=== PATIENT | female | born 1950 | race Caucasian/White ===

== ENCOUNTER 2018-07-05 04:40 | Emergency (ER) | payer MEDICARE, MEDICAID ==
[2018-07-05 04:47] VITALS: BP 156/88
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
[2018-07-05] MEDS ORDERED: Albuterol/Ipratropium 3.0-0.5 MG/3 ML Neb Soln NEB ONE (05:57)
[2018-07-05] MEDS ORDERED: Naproxen 500 MG Tab PO ONE (06:14)
== END 2018-07-05 09:35 | disposition home or self-care (01) ==
LOC: JD.ED 04:40
DX: J45.901 Unspecified asthma with (acute) exacerbation (principal); J70.5 Respiratory conditions due to smoke inhalation; Z88.1 Allergy status to other antibiotic agents; Z88.0 Allergy status to penicillin; Z88.8 Allergy status to other drugs, medicaments and biological substances; Z79.899 Other long term (current) drug therapy
CPT/HCPCS: 82375; 93005; 94640; 99285; A9270; 99283; J7620-GY

== ENCOUNTER 2018-10-16 06:09 | Day surgery (SDC) | payer MEDICARE, MEDICAID ==
[~2018-10-16 06:09] MED LIST: Lactated Ringers 1,000 ML IV SCH; Lidocaine 1%/Sod Bicarbonate in NS 8.4% 1 ML Syringe IDERM PRN; Sodium Chloride 0.9% 10 ML Syringe FLUSH PRN
[2018-10-16] MEDS ORDERED: Clindamycin Phosphate in D5W 900 MG in Premix Bag 1 BAG IV SCH ×2 (06:15)
[2018-10-16] MEDS ORDERED: Bupivacaine 0.25% 10 ML SDV ONE (06:35)
--- NOTE | 2018-10-16 06:45 | PCM.PREANE ---
Preanesthetic Assessment - Anesthesia/Transfusion/Family Hx Anesthesia History: Prior Anesthesia Without Reaction Family History of Anesthesia Reaction: Yes (sister reaction with second child C- section) Transfusion History: No Prior Transfusion(s) - Review of Systems General: No Symptoms Pulmonary: Other (bronciol asthma) Cardiovascular: Dyspnea on Exertion Gastrointestinal: No Symptoms Neurological: Other (memory side effects) Other: Reports: Diabetes (128 this am), Depression - Physical Assessment NPO Status Date: 10/15/18 NPO Status Time: 00:00 Pulse: 68 O2 Sat by Pulse Oximetry: 96 Respiratory Rate: 16 Blood Pressure: 150/86 Temperature: 36.2 C Height: 1.65 m Weight: 120.519 kg ASA Class: 3 Mental Status: Alert & Oriented x3 Airway Class: Mallampati = 2 Dentition: Reports: Caries Thyro-Mental Finger Breadths: 2 Mouth Opening Finger Breadths: 2 ROM/Head Extension: Limited/Partial Lungs: Clear to Auscultation, Normal Respiratory Effort, Decreased Breath Sounds Cardiovascular: Regular Rate, Regular Rhythm - Imaging/EKG Impressions: SR rate 74 - Allergies Allergies/Adverse Reactions: Allergies Allergy/AdvReac Type Severity Reaction Status Date / Time ampicillin sodium Allergy Rash Verified 10/15/18 14:45 [From Unasyn] Penicillins Allergy Rash Verified 10/15/18 14:45 sulbactam sodium Allergy Rash Verified 10/15/18 14:45 [From Unasyn] acetaminophen [From Tylenol] AdvReac Hallucinati Verified 10/15/18 14:45 ons diphenhydramine HCl AdvReac Itching Verified 10/15/18 14:45 [From Benadryl] - Anesthesia Plan Pre-Op Medication Ordered: Beta Edgar Beta Edgar: Metoprolol Med Last Dose Date: 10/16/18 Med Last Dose Time: 05:00 - Acknowledgements Anesthesia Type Planned: MAC Pt an Appropriate Candidate for the Planned Anesthesia: Yes Alternatives and Risks of Anesthesia Discussed w Pt/Guardian: Yes Pt/Guardian Understands and Agrees with Anesthesia Plan: Yes PreAnesthesia Questionnaire HEENT History: Reports: Cataract, Sinusitis Other HEENT History: Tonsillitis Cardiovascular History: Reports: High Cholesterol, Hypertension Respiratory History: Reports: Asthma, Bronchitis, Recurrent, Sleep Apnea Gastrointestinal History: Reports: Other (See Below) Other Gastrointestinal History: Gall bladder disease, elevated LFTs Genitourinary History: Reports: Other (See Below) Other Genitourinary History: Dysuria, urinary frequency, acute cystitis [employer]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: Musculoskeletal History: Reports: Gout, Osteoarthritis Other Musculoskeletal History: Bursitis, rotator cuff injury, right shoulder pain Neurological History: Reports: CVA (2008 and 2009), Other (See Below) Other Neuro History: Neuralgia Psychiatric History: Reports: Depression Endocrine/Metabolic History: Reports: Diabetes, Type II, Obesity/BMI 30+ Hematologic History: Reports: None Immunologic History: Reports: None Oncologic (Cancer) History: Reports: None Other Dermatologic History: Cellulitis and abscess of foot, skin lesions - Past Surgical History Head Surgeries/Procedures: Reports: None HEENT Surgical History: Reports: Cataract Surgery, Tonsillectomy Cardiovascular Surgical History: Reports: None Respiratory Surgical History: Reports: None GI Surgical History: Reports: Appendectomy, Cholecystectomy, Colonoscopy Female Surgical History: Reports: Section Endocrine Surgical History: Reports: None Neurological Surgical History: Reports: None Other Musculoskeletal Surgeries/Procedures:: Bilateral total knee arthroplasty, bilateral rotator cuff repair - SUBSTANCE USE Smoking Status *Q: Never Smoker Tobacco Use Within Last Twelve Months: No Second Hand Smoke Exposure: No Days Per Week of Alcohol Use: 0 Number of Drinks Per Day: 0 Total Drinks Per Week: 0 Recreational Drug Use History: No - HOME MEDS Home Medications: Home Meds Albuterol Sulfate [Proair Respiclick] 2 puff IH Q6H PRN 10/15/18 [History] Allopurinol [Zyloprim] 100 mg PO DAILY 10/15/18 [History] Calcium Carbonate [Calcium] 1,200 mg PO DAILY 10/15/18 [History] Clopidogrel [Plavix] 75 mg PO DAILY 10/15/18 [History] Fexofenadine [Alejandra] 180 mg PO DAILY 10/15/18 [History] Insulin Glargine,Hum.Rec.Anlog [Mili Lyons] 58 unit SQ BEDTIME 10/15/18 [ History] Magnesium 250 mg PO DAILY 10/15/18 [History] Metoprolol Succinate [Toprol XL 50mg] 50 mg PO DAILY 10/15/18 [History] Naproxen Sodium [Aleve] 220 mg PO BID PRN 10/15/18 [History] Quinapril [Accupril] 20 mg PO DAILY 10/15/18 [History] Rosuvastatin [Crestor] 5 mg PO DAILY 10/15/18 [History] Saxagliptin HCl [Onglyza] 5 mg PO DAILY 10/15/18 [History] Sertraline [Zoloft] 50 mg PO DAILY 10/15/18 [History] metFORMIN [Glucophage] 1,000 mg PO BIDMEALS 10/15/18 [History] traMADol [Ultram] 50 - 100 mg PO Q6H PRN #20 tab 10/16/18 [Rx] - CURRENT (IN HOUSE) MEDS Current Meds: Current Medications Lactated Ringer's (Ringers, Lactated) 1,000 mls @ 125 mls/hr IV ASDIRECTED NAZIA Stop: 10/16/18 23:00 Clindamycin Phosphate 900 mg/ (Premix) 50 mls @ 100 mls/hr IV ONETIME NAZIA Stop: 10/16/18 18:00 Lidocaine/Sodium Bicarbonate (Buffered Lidocaine 1% In Ns 8.4%) 0.25 ml IDERM ONETIME PRN PRN Reason: Prior to IV Start Stop: 10/16/18 18:00 Sodium Chloride (Saline Flush) 10 ml FLUSH ASDIRECTED PRN PRN Reason: Keep Vein Open Stop: 10/16/18 18:00 Discontinued Medications Bupivacaine HCl (Sensorcaine-Mpf 0.25%) Confirm Administered Dose 10 ml .ROUTE .STK-MED ONE Stop: 10/16/18 06:36
[2018-10-16] MEDS ORDERED: fentaNYL 100 MCG/2 ML SDV ONE (06:55)
[2018-10-16] MEDS ORDERED: Ondansetron 4 MG/2 ML SDV ONE (06:55)
[2018-10-16] MEDS ORDERED: Propofol 200 MG/20 ML SDV ONE (06:55)
[2018-10-16] MEDS ORDERED: Clindamycin Phosphate 900 MG/6 ML SDV ONE (06:56)
[2018-10-16] MEDS ORDERED: Lidocaine 1% 4 ML ONE (06:56)
[2018-10-16] MEDS ORDERED: Midazolam 1 MG/ML 2 ML SDV ONE (06:56)
[2018-10-16] MEDS ORDERED: Lidocaine 1% 30 ML SDV ONE (06:57)
[2018-10-16 09:54] VITALS: BP 127/66
--- NOTE | 2018-10-17 10:46 | PCM.OPNOTE ---
- General Post-Op/Procedure Note Date of Surgery/Procedure: 10/16/18 Operative Procedure(s): left ring finger trigger finger release Pre Op Diagnosis: left ring finger stenosing tenosynovitis Post-Op Diagnosis: Same Anesthesia Technique: Local, MAC Primary Surgeon: Ck Yo Anesthesia Provider: Carmine Martinez [employer] Work Supervisor: Samantha Daniel EBL in mLs: 5 Complications: None Condition: Good
--- NOTE | 2018-10-17 11:11 | OR ---
DATE OF OPERATION: 10/16/2018 SURGEON: Ck Yo MD OPERATION PERFORMED: Left ring finger trigger finger release. PREOPERATIVE DIAGNOSIS: Left ring finger stenosing tenosynovitis. POSTOPERATIVE DIAGNOSIS: Left ring finger stenosing tenosynovitis. ANESTHESIA: Local MAC. 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 ESTIMATED BLOOD LOSS: Less than 5 mL. COMPLICATIONS: None. CONDITION: Stable. DESCRIPTION OF PROCEDURE: The patient was identified in the preoperative holding area. Proper site was marked and identified by the surgeon. The patient was taken back to the operating theater where after adequate anesthesia, the patient's left upper extremity was sterilely prepped and draped in the usual sterile fashion. OR time-out was performed. She received IV clindamycin. At this time, the left upper extremity was anesthetized at the incisional site using 1% lidocaine without epinephrine and 0.25% Marcaine without epinephrine. Once this had set up, a transverse incision was made over the A1 maura of the left ring finger. Blunt dissection was taken down to the A1 maura. Ragnell retractors were used to protect the neurovascular bundles. A Bennett blade was then used to resect the A1 maura both proximally and distally. It was found to have adequate release both proximally and distally. There were no tenderness or adhesions noted. Adequate saline was irrigated through the wound. A 4-0 nylon simple suture was used for closure of the skin. The patient had a sterile soft dressing applied and sent to PACU in stable condition. LAMAR /[id number]
== END 2018-10-16 09:52 | disposition home or self-care (01) ==
LOC: JD.SDS 06:09
PROVIDERS: ATTEND Orthopaedic Surgery
DX: M65.842 Other synovitis and tenosynovitis, left hand (principal); I10 Essential (primary) hypertension; E11.9 Type 2 diabetes mellitus without complications; F32.9 Major depressive disorder, single episode, unspecified; M10.9 Gout, unspecified; E66.3 Overweight; Z68.41 Body mass index [BMI] 40.0-44.9, adult; Z79.02 Long term (current) use of antithrombotics/antiplatelets; Z79.4 Long term (current) use of insulin; Z79.51 Long term (current) use of inhaled steroids; Z88.6 Allergy status to analgesic agent; Z88.1 Allergy status to other antibiotic agents; Z88.0 Allergy status to penicillin; Z88.8 Allergy status to other drugs, medicaments and biological substances
CPT/HCPCS: 01810; J2001; J2250; J2405; J2704; J3010; J3490; J7120

== ENCOUNTER 2019-03-19 07:30 | Inpatient (IN) | payer MEDICARE, MEDICAID ==
[2019-03-30] MEDS ORDERED: Lidocaine 1%/Sod Bicarbonate in NS 8.4% 1 ML Syringe IDERM PRN (00:01)
[2019-03-30] MEDS ORDERED: Lactated Ringers 1,000 ML IV SCH (00:01)
[2019-03-30] MEDS ORDERED: Albuterol 0.083% 2.5 MG/3 ML Neb Soln NEB ONE (00:01)
[2019-03-30] MEDS ORDERED: Sodium Chloride 0.9% 10 ML Syringe FLUSH PRN (00:01)
[2019-04-01] MEDS ORDERED: EPINEPHrine 1 MG/ML SDV ONE (06:15)
[2019-04-01] MEDS ORDERED: Lidocaine 1% 2 ML ONE (06:15)
[2019-04-01] MEDS ORDERED: Ropivacaine 0.5% 5 MG/ML 30 ML SDV ONE (06:15)
[2019-04-01] MEDS ORDERED: Ondansetron 4 MG/2 ML SDV ONE (06:27)
[2019-04-01] MEDS ORDERED: Propofol 200 MG/20 ML SDV ONE ×2 (06:27→07:55)
[2019-04-01] MEDS ORDERED: Lidocaine 1% 6 ML ONE (06:27)
[2019-04-01] MEDS ORDERED: Rocuronium 50 MG/5 ML Vial ONE (06:27)
[2019-04-01] MEDS ORDERED: Lactated Ringers 1,000 ML ONE ×2 (06:27→08:20)
[2019-04-01] MEDS ORDERED: Ketorolac 30 MG/ML SDV ONE (06:27)
[2019-04-01] MEDS ORDERED: Midazolam 1 MG/ML 2 ML SDV ONE (06:28)
[2019-04-01] MEDS ORDERED: fentaNYL 250 MCG/5 ML SDV ONE (06:28)
[2019-04-01] MEDS ORDERED: Albuterol 0.083% 2.5 MG/3 ML Neb Soln NEB ONE (06:51)
--- NOTE | 2019-04-01 06:52 | PCM.PREANE ---
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), September 2009 CVA), Tingling (Right hand due to shoulder pain), Other (Memory issues:) Other: Reports: Easy Bleeding, Easy Bruising, Diabetes ([phone] [id number]), Sinus Problem (seasonal allergies), Depression - Physical Assessment NPO Status Date: 03/31/19 NPO Status Time: 19:30 Vital Signs: Last Vital Signs Temp 36.1 C 04/01/19 06:10 Pulse 66 04/01/19 06:10 Resp 16 04/01/19 06:10 BP 117/68 04/01/19 06:10 Pulse Ox 96 04/01/19 06:10 Height: 1.68 m Weight: 114 kg ASA Class: 3 Mental Status: Alert & Oriented x3 Airway Class: Mallampati = 2 Dentition: Reports: Normal Dentition, Caries Thyro-Mental Finger Breadths: 3 Mouth Opening Finger Breadths: 3 ROM/Head Extension: Full Lungs: Clear to Auscultation, Normal Respiratory Effort, Decreased Breath Sounds (Albuterol nebulizer given in preoperative area.) Cardiovascular: Regular Rate, Regular Rhythm, No Murmurs - Lab Values: Laboratory Last Values POC Glucose 142 mg/dL (80-115) H 04/01/19 06:20 MRSA (PCR) Negative 03/06/19 09:55 All labs reviewed and noted and within acceptable ranges to proceed with scheduled procedure. - Imaging/EKG Impressions: CXR: Mild cardiomegaly that is unchanged since 09/06/2014 EKG: SR rate=66, inferior old infarct, no changes from prior EKG. - Allergies Allergies/Adverse Reactions: Allergies Allergy/AdvReac Type Severity Reaction Status Date / Time ampicillin sodium Allergy Rash Verified 03/31/19 10:39 [From Unasyn] Penicillins Allergy Rash Verified 03/31/19 10:39 sulbactam sodium Allergy Rash Verified 03/31/19 10:39 [From Unasyn] acetaminophen [From Tylenol] AdvReac Hallucinati Verified 03/31/19 10:39 ons diphenhydramine HCl AdvReac Itching Verified 03/31/19 10:39 [From Benadryl] - Anesthesia Plan Pre-Op Medication Ordered: Beta Edgar Beta Edgar: Metoprolol Med Last Dose Date: 04/01/19 Med Last Dose Time: 04:45 - Acknowledgements Anesthesia Type Planned: General Anesthesia (Right ISB under US guidance for post operative pain control requested by Dr. Yo.) Pt an Appropriate Candidate for the Planned Anesthesia: Yes Alternatives and Risks of Anesthesia Discussed w Pt/Guardian: Yes Pt/Guardian Understands and Agrees with Anesthesia Plan: Yes PreAnesthesia Questionnaire HEENT History: Reports: Allergic Rhinitis, Impaired Vision, Sinusitis Other HEENT History: Tonsillitis Cardiovascular History: Reports: High Cholesterol, Hypertension Respiratory History: Reports: Asthma, Bronchitis, Recurrent, Sleep Apnea Gastrointestinal History: Reports: Other (See Below) Other Gastrointestinal History: Gall bladder disease, elevated LFTs Genitourinary History: Reports: Urinary Incontinence Other Genitourinary History: Dysuria, urinary frequency, acute cystitis 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: Musculoskeletal History: Reports: Gout, Osteoarthritis Other Musculoskeletal History: Bursitis, rotator cuff injury, right shoulder pain Neurological History: Reports: CVA, TIA Other Neuro History: Neuralgia, cerebrovascular disease Psychiatric History: Reports: Depression Endocrine/Metabolic History: Reports: Diabetes, Type II, Obesity/BMI 30+ Hematologic History: Reports: None Immunologic History: Reports: None Oncologic (Cancer) History: Reports: None Dermatologic History: Reports: Cellulitis Other Dermatologic History: Cellulitis and abscess of foot, skin lesions - Infectious Disease History Infectious Disease History: Reports: None - Past Surgical History Head Surgeries/Procedures: Reports: None HEENT Surgical History: Reports: Adenoidectomy, Cataract Surgery, Tonsillectomy Cardiovascular Surgical History: Reports: None Respiratory Surgical History: Reports: None GI Surgical History: Reports: Appendectomy, Cholecystectomy, Colonoscopy Female Surgical History: Reports: Section, Tubal Ligation Endocrine Surgical History: Reports: None Neurological Surgical History: Reports: None Musculoskeletal Surgical History: Reports: Carpal Tunnel, Knee Replacement, Shoulder Surgery Other Musculoskeletal Surgeries/Procedures:: Bilateral total knee arthroplasty, bilateral rotator cuff repair Oncologic Surgical History: Reports: None - SUBSTANCE USE Smoking Status *Q: Never Smoker Second Hand Smoke Exposure: No Recreational Drug Use History: No - HOME MEDS Home Medications: Home Meds Albuterol Sulfate [Proair Respiclick] 2 puff IH Q6H PRN 10/15/18 [History] Allopurinol [Zyloprim] 100 mg PO DAILY 10/15/18 [History] Calcium Carbonate [Calcium] 1,200 mg PO DAILY 10/15/18 [History] Clopidogrel [Plavix] 75 mg PO DAILY 10/15/18 [History] Fexofenadine [Alejandra] 180 mg PO DAILY 10/15/18 [History] Insulin Glargine,Hum.Rec.Anlog [T[place]hayy Solostar] 58 unit SQ BEDTIME 10/15/18 [ History] Metoprolol Succinate [Toprol XL 50mg] 50 mg PO DAILY 10/15/18 [History] Naproxen Sodium [Aleve] 220 mg PO BID PRN 10/15/18 [History] Quinapril [Accupril] 20 mg PO DAILY 10/15/18 [History] Rosuvastatin [Crestor] 5 mg PO DAILY 10/15/18 [History] Saxagliptin HCl [Onglyza] 5 mg PO DAILY 10/15/18 [History] Sertraline [Zoloft] 50 mg PO DAILY 10/15/18 [History] metFORMIN [Glucophage] 1,000 mg PO BIDMEALS 10/15/18 [History] Magnesium Oxide [Magnesium] 400 mg PO DAILY 12/31/18 [History] Cholecalciferol (Vitamin D3) [Vitamin D3] 5,000 unit PO DAILY 03/27/19 [History] - CURRENT (IN HOUSE) MEDS Current Meds: Current Medications Aspirin (Ecotrin) 325 mg PO DAILY NAZIA Bisacodyl (Dulcolax) 5 mg PO DAILY PRN PRN Reason: Constipation Cyclobenzaprine HCl (Flexeril) 5 mg PO BID PRN PRN Reason: Spasms Docusate Sodium (Colace) 100 mg PO BID NAZIA Famotidine (Pepcid) 20 mg PO Q12H NAZIA Cefazolin Sodium/Dextrose 2 gm (/ Premix) 50 mls @ 100 mls/hr IV Q8H NAZIA Stop: 04/01/19 23:14 Ketorolac Tromethamine (Toradol) 15 mg IVPUSH Q6H PRN PRN Reason: Pain Morphine Sulfate (Morphine) 2 mg IVPUSH Q2H PRN PRN Reason: Breakthrough Pain Naloxone HCl (Narcan) 0.1 mg IVPUSH Q5M PRN PRN Reason: Oversedation Ondansetron HCl (Zofran) 4 mg IVPUSH Q6H PRN PRN Reason: Nausea/Vomiting Oxycodone HCl (Oxycodone) 5 - 10 mg PO Q6H PRN PRN Reason: Pain Senna (Senna) 8.6 mg PO BID PRN PRN Reason: Constipation Discontinued Medications Albuterol (Proventil Neb Soln) 2.5 mg NEB ONETIME ONE Stop: 03/30/19 00:02 Cefazolin Sodium (Ancef) Confirm Administered Dose 2 gm .ROUTE .STK-MED ONE Stop: 04/01/19 06:28 Epinephrine HCl (Adrenalin) Confirm Administered Dose 1 mg .ROUTE .STK-MED ONE Stop: 04/01/19 06:16 Fentanyl (Sublimaze) Confirm Administered Dose 250 mcg .ROUTE .STK-MED ONE Stop: 04/01/19 06:29 Lactated Ringer's (Ringers, Lactated) 1,000 mls @ 125 mls/hr IV ASDIRECTED NAZIA Stop: 03/30/19 23:00 Lidocaine HCl (Xylocaine-Mpf 1%) Confirm Administered Dose 2 mls @ as directed .ROUTE .STK-MED ONE Stop: 04/01/19 06:16 Lidocaine HCl (Xylocaine-Mpf 1%) Confirm Administered Dose 6 mls @ as directed .ROUTE .STK-MED ONE Stop: 04/01/19 06:28 Lactated Ringer's (Ringers, Lactated) Confirm Administered Dose 1,000 mls @ as directed .ROUTE .STK-MED ONE Stop: 04/01/19 06:28 Ketorolac Tromethamine (Toradol) Confirm Administered Dose 30 mg .ROUTE .STK- MED ONE Stop: 04/01/19 06:28 Lidocaine/Sodium Bicarbonate (Buffered Lidocaine 1% In Ns 8.4%) 0.25 ml IDERM ONETIME PRN PRN Reason: Prior to IV Start Stop: 03/30/19 23:00 Midazolam HCl (Versed 1 Mg/Ml) Confirm Administered Dose 2 mg .ROUTE .STK-MED ONE Stop: 04/01/19 06:29 Ondansetron HCl (Zofran) Confirm Administered Dose 4 mg .ROUTE .STK-MED ONE Stop: 04/01/19 06:28 Propofol (Diprivan 20 Ml) Confirm Administered Dose 200 mg .ROUTE .STK-MED ONE Stop: 04/01/19 06:28 Rocuronium [place] (Zemuron) Confirm Administered Dose 50 mg .ROUTE .STK-MED ONE Stop: 04/01/19 06:28 Ropivacaine (Naropin 0.5%) Confirm Administered Dose 30 ml .ROUTE .STK-MED ONE Stop: 04/01/19 06:16 Sodium Chloride (Saline Flush) 10 ml FLUSH ASDIRECTED PRN PRN Reason: Keep Vein Open Stop: 03/30/19 23:00
[2019-04-01] MEDS ORDERED: Lactated Ringers 1,000 ML IV SCH (07:00)
[2019-04-01] MEDS ORDERED: ceFAZolin 1 GM Vial ONE (07:01)
[2019-04-01] MEDS ORDERED: Bupivacaine 0.25% 10 ML SDV ONE (07:02)
--- NOTE | 2019-04-01 07:07 | PCM.CONS ---
H&P History of Present Illness - General Date of Service: 04/01/19 Admit Problem/Dx: Admission Diagnosis/Problem Admission Diagnosis/Problem Osteoarthritis of shoulder Source of Information: Patient, Old Records, Provider, RN, RN Notes Reviewed History Limitations: Reports: No Limitations - History of Present Illness Initial Comments - Free Text/Narative: Melanie Lowe is a 68 yo female patient of Dr. Yo who is post-operative day 0 of right RTSA. Hospital medicine was consulted for post-operative medical care of the following listed medical conditions. At this time she is resting comfortably in bed. Pain is controlled. She denies any chest pain, shortness of breath, palpitations, nausea, or vomiting. She carries a history of: Type II DM , HTN, CVA, Depression, Gout, HLD, Obesity, elevated LFTs, Neuralgia, BLAISE, Cardiomegaly, LVH, asthma, Recurrent bronchitis, urinary incontinence, TIAs. She was never a smoker. She is a full code. Her primary care provider is Dr. Parrish. Right Shoulder Pain Score (Numeric/FACES): 10 - Related Data Allergies/Adverse Reactions: Allergies Allergy/AdvReac Type Severity Reaction Status Date / Time ampicillin sodium Allergy Rash Verified 04/01/19 11:51 [From Unasyn] diphenhydramine HCl Allergy Itching Verified 04/01/19 11:51 [From Benadryl] Penicillins Allergy Rash Verified 04/01/19 11:51 sulbactam sodium Allergy Rash Verified 04/01/19 11:51 [From Unasyn] acetaminophen [From Tylenol] AdvReac Hallucinati Verified 04/01/19 11:51 ons Home Medications: Home Meds Albuterol Sulfate [Proair Respiclick] 2 puff IH Q6H PRN 10/15/18 [History] Allopurinol [Zyloprim] 100 mg PO DAILY 10/15/18 [History] Calcium Carbonate [Calcium] 1,200 mg PO DAILY 10/15/18 [History] Clopidogrel [Plavix] 75 mg PO DAILY 10/15/18 [History] Fexofenadine [Alejandra] 180 mg PO DAILY 10/15/18 [History] Insulin Glargine,Hum.Rec.Anlog [Mili Lyons] 58 unit SQ BEDTIME 10/15/18 [ History] Metoprolol Succinate [Toprol XL 50mg] 50 mg PO DAILY 10/15/18 [History] Naproxen Sodium [Aleve] 220 mg PO BID PRN 10/15/18 [History] Quinapril [Accupril] 20 mg PO DAILY 10/15/18 [History] Rosuvastatin [Crestor] 5 mg PO DAILY 10/15/18 [History] Saxagliptin HCl [Onglyza] 5 mg PO DAILY 10/15/18 [History] Sertraline [Zoloft] 50 mg PO DAILY 10/15/18 [History] metFORMIN [Glucophage] 1,000 mg PO BIDMEALS 10/15/18 [History] Magnesium Oxide [Magnesium] 400 mg PO DAILY 12/31/18 [History] Cholecalciferol (Vitamin D3) [Vitamin D3] 5,000 unit PO DAILY 03/27/19 [History] Past Medical History HEENT History: Reports: Allergic Rhinitis, Impaired Vision, Sinusitis Other HEENT History: Tonsillitis Cardiovascular History: Reports: High Cholesterol, Hypertension Respiratory History: Reports: Asthma, Bronchitis, Recurrent, Sleep Apnea Gastrointestinal History: Reports: Other (See Below) Other Gastrointestinal History: Gall bladder disease, elevated LFTs Genitourinary History: Reports: Urinary Incontinence Other Genitourinary History: Dysuria, urinary frequency, acute cystitis 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: Musculoskeletal History: Reports: Gout, Osteoarthritis Other Musculoskeletal History: Bursitis, rotator cuff injury, right shoulder pain Neurological History: Reports: CVA, TIA Other Neuro History: Neuralgia, cerebrovascular disease Psychiatric History: Reports: Depression Endocrine/Metabolic History: Reports: Diabetes, Type II, Obesity/BMI 30+ Hematologic History: Reports: None Immunologic History: Reports: None Oncologic (Cancer) History: Reports: None Dermatologic History: Reports: Cellulitis Other Dermatologic History: Cellulitis and abscess of foot, skin lesions - Infectious Disease History Infectious Disease History: Reports: None - Past Surgical History Head Surgeries/Procedures: Reports: None HEENT Surgical History: Reports: Adenoidectomy, Cataract Surgery, Tonsillectomy Cardiovascular Surgical History: Reports: None Respiratory Surgical History: Reports: None GI Surgical History: Reports: Appendectomy, Cholecystectomy, Colonoscopy Female Surgical History: Reports: Section, Tubal Ligation Endocrine Surgical History: Reports: None Neurological Surgical History: Reports: None Musculoskeletal Surgical History: Reports: Carpal Tunnel, Knee Replacement, Shoulder Surgery Other Musculoskeletal Surgeries/Procedures:: Bilateral total knee arthroplasty, bilateral rotator cuff repair Oncologic Surgical History: Reports: None Social & Family History - Tobacco Use Smoking Status *Q: Never Smoker Second Hand Smoke Exposure: No - Caffeine Use Caffeine Use: Reports: Coffee, Tea - Recreational Drug Use Recreational Drug Use: No - Living Situation & Occupation Living situation: Reports: , with Family (Daughter + her family) Occupation: Retired H&P Review of Systems - Review of Systems: Review Of Systems: See Below General: Reports: No Symptoms. Denies: Fever, Chills HEENT: Reports: Post Nasal Drip, Sore Throat. Denies: Headaches Pulmonary: Reports: Shortness of Breath (occasional), Cough. Denies: Wheezing, Pleuritic Chest Pain, Sputum Cardiovascular: Reports: No Symptoms. Denies: Chest Pain, Dyspnea on Exertion, Edema Gastrointestinal: Reports: No Symptoms. Denies: Abdominal Pain, Constipation, Diarrhea, Nausea, Vomiting Genitourinary: Reports: No Symptoms. Denies: Pain Musculoskeletal: Reports: Shoulder Pain Skin: Reports: No Symptoms. Denies: Cyanosis Psychiatric: Reports: No Symptoms. Denies: Confusion Neurological: Reports: No Symptoms Hematologic/Lymphatic: Reports: No Symptoms Immunologic: Reports: No Symptoms Exam - Exam Exam: See Below - Vital Signs Vital Signs: Last Vital Signs Temp 97.0 F 04/01/19 06:10 Pulse 66 04/01/19 06:10 Resp 16 04/01/19 06:10 BP 117/68 04/01/19 06:10 Pulse Ox 98 04/01/19 06:56 Weight: 251 lb 5.231 oz - Exam Quality Assessment: DVT Prophylaxis General: Alert, Oriented, Cooperative. No: Mild Distress HEENT: Conjunctiva Clear, EACs Clear, EOMI, Hearing Intact, Mucosa Moist & Hobe Sound , Nares Patent, Posterior Pharynx Clear, PERRLA Neck: Supple, Trachea Midline Lungs: Clear to Auscultation, Normal Respiratory Effort, Decreased Breath Sounds. No: Rhonchi, Wheezing Cardiovascular: Regular Rate, Regular Rhythm GI/Abdominal Exam: Normal Bowel Sounds, Soft, Non-Tender, No Distention, No Abnormal Bruit (Female) Exam: Deferred Rectal (Female) Exam: Deferred Back Exam: Normal Inspection, Full Range of Motion Extremities: No Pedal Edema, Normal Capillary Refill, Arm Pain (Right shoulder) , Limited Range of Motion, Other (Sling and swathe on right arm. Bandage on right shoulder. Bandage is dry and intact. Cooling pack in palce.) Peripheral Pulses: 1+: Dorsalis Pedis (L), Dorsalis Pedis (R), 2+: Radial (L), Radial (R) Skin: Warm, Dry, Intact Neurological: Cranial Nerves Intact (Grossly ) Neuro Extensive - Mental Status: Alert, Oriented x3, Normal Mood/Affect - Patient Data Lab Results Last 24 hrs: Laboratory Results - last 24 hr 04/01/19 Range/Units 06:20 POC Glucose 142 H (80-115) mg/dL Consult PN Assessment/Plan POD#: 0 Procedures: Procedures AIRWAY INHALATION TREATMENT (07/05/18) ASSAY CARBOXYHB QUANT (07/05/18) ASSAY OF BLOOD/URIC ACID (01/27/14) CHEST X-RAY 2VW FRONTAL&LATL (11/09/15) COMP SCREEN MAMMOGRAM ADD-ON (09/30/15) COMPLETE CBC W/AUTO DIFF WBC (01/07/14) CULTURE AEROBIC IDENTIFY (11/05/13) DXA BONE DENSITY AXIAL (09/30/15) ELECTROCARDIOGRAM TRACING (07/05/18) EMERGENCY DEPT VISIT (12/31/18) EMERGENCY DEPT VISIT (07/05/18) EMERGENCY DEPT VISIT (01/27/14) HYDRATE IV INFUSION ADD-ON (04/23/14) HYDRATION IV INFUSION INIT (04/23/14) INCISE FINGER TENDON SHEATH (10/16/18) INJECTION FOR SHOULDER X-RAY (10/26/15) INSERT BLADDER CATHETER (12/31/18) MANUAL THERAPY 1/> REGIONS (03/06/16) MASSAGE THERAPY (10/03/17) MICROBE SUSCEPTIBLE KATY (12/31/18) MR-STAPH DNA AMP PROBE (10/03/18) MRI JOINT UPR EXTREM W/DYE (10/26/15) NEEDLE LOCALIZATION BY XRAY (10/26/15) NEUROMUSCULAR REEDUCATION (10/18/17) PT EVAL MOD COMPLEX 30 MIN (10/03/17) PT EVALUATION (02/06/16) ROUTINE VENIPUNCTURE (01/27/14) THER/PROPH/DIAG INJ SC/IM (01/27/14) THERAPEUTIC EXERCISES (10/18/17) URINALYSIS AUTO W/SCOPE (12/31/18) URINE BACTERIA CULTURE (12/31/18) URINE CULTURE/COLONY COUNT (12/31/18) X-RAY EXAM OF HAND (09/15/13) X-RAY EXAM OF TOE(S) (01/07/14) (1) S/p reverse total shoulder arthroplasty SNOMED Code(s): 051678233, 005514521 Code(s): Z96.619 - PRESENCE OF UNSPECIFIED ARTIFICIAL SHOULDER JOINT Priority: High Current Visit: Yes Qualifiers: Laterality: right Qualified Code(s): Z96.611 - Presence of right artificial shoulder joint (2) Osteoarthritis SNOMED Code(s): 108931214 Code(s): M19.90 - UNSPECIFIED OSTEOARTHRITIS, UNSPECIFIED SITE Priority: High Current Visit: Yes Qualifiers: Osteoarthritis location: shoulder Osteoarthritis type: primary Laterality : right Qualified Code(s): M19.011 - Primary osteoarthritis, right shoulder (3) Diabetes mellitus SNOMED Code(s): 23222242 Code(s): E11.9 - TYPE 2 DIABETES MELLITUS WITHOUT COMPLICATIONS Priority: Medium Current Visit: No Qualifiers: Diabetes mellitus type: type 2 Diabetes mellitus assisted insulin use: unspecified assisted insulin use status Diabetes mellitus complication status : with other specified complication Qualified Code(s): E11.69 - Type 2 diabetes mellitus with other specified complication (4) HTN (hypertension) SNOMED Code(s): 23685103 Code(s): I10 - ESSENTIAL (PRIMARY) HYPERTENSION Priority: Medium Current Visit: No Qualifiers: Hypertension type: unspecified Qualified Code(s): I10 - Essential (primary ) hypertension (5) CVA (cerebral vascular accident) SNOMED Code(s): 687319512 Code(s): I63.9 - CEREBRAL INFARCTION, UNSPECIFIED Priority: Medium Current Visit: No Qualifiers: CVA mechanism: unspecified Qualified Code(s): I63.9 - Cerebral infarction, unspecified (6) Depression SNOMED Code(s): 17707981 Code(s): F32.9 - MAJOR DEPRESSIVE DISORDER, SINGLE EPISODE, UNSPECIFIED Priority: Low Current Visit: No Qualifiers: Depression Type: other depression Qualified Code(s): F32.89 - Other specified depressive episodes (7) HLD (hyperlipidemia) SNOMED Code(s): 75009090 Code(s): E78.5 - HYPERLIPIDEMIA, UNSPECIFIED Priority: Low Current Visit : No Qualifiers: Hyperlipidemia type: unspecified Qualified Code(s): E78.5 - Hyperlipidemia , unspecified (8) Obesity SNOMED Code(s): 420935517, 967409462 Code(s): E66.9 - OBESITY, UNSPECIFIED Priority: Medium Current Visit: No Qualifiers: Obesity type: unspecified obesity type Obesity classification: adult class 3 (BMI >= 40) Serious obesity comorbidity presence: unspecified whether serious comorbidity present Body mass index: BMI 40.0-44.9 Qualified Code(s) : E66.01 - Morbid (severe) obesity due to excess calories; Z68.41 - Body mass index (BMI) 40.0-44.9, adult (9) Elevated LFTs SNOMED Code(s): 432174678, 534731458 Code(s): R94.5 - ABNORMAL RESULTS OF LIVER FUNCTION STUDIES Priority: Low Current Visit: No (10) Neuralgia SNOMED Code(s): 97441831 Code(s): M79.2 - NEURALGIA AND NEURITIS, UNSPECIFIED Priority: Low Current Visit: No (11) BLAISE (obstructive sleep apnea) SNOMED Code(s): 51583011 Code(s): G47.33 - OBSTRUCTIVE SLEEP APNEA (ADULT) (PEDIATRIC) Priority: Medium Current Visit: No (12) Cardiomegaly SNOMED Code(s): 2893040 Code(s): I51.7 - CARDIOMEGALY Priority: Medium Current Visit: No (13) LVH (left ventricular hypertrophy) SNOMED Code(s): 22428286 Code(s): I51.7 - CARDIOMEGALY Priority: Low Current Visit: No (14) Gout SNOMED Code(s): 00820754 Code(s): M10.9 - GOUT, UNSPECIFIED Priority: Low Current Visit: No (15) Asthma SNOMED Code(s): 529614806 Code(s): J45.909 - UNSPECIFIED ASTHMA, UNCOMPLICATED Priority: Medium Current Visit: No Qualifiers: Asthma severity: unspecified severity Asthma persistence: unspecified Asthma complication type: unspecified Qualified Code(s): J45.909 - Unspecified asthma, uncomplicated (16) Incontinence SNOMED Code(s): 76973489 Code(s): R32 - UNSPECIFIED URINARY INCONTINENCE Priority: Low Current Visit: No Qualifiers: Incontinence type: urinary Urinary Incontinence type: unspecified incontinence Qualified Code(s): R32 - Unspecified urinary incontinence (17) History of TIAs SNOMED Code(s): 047347476 Code(s): Z86.73 - PRSNL HX OF TIA (TIA), AND CEREB INFRC W/O RESID DEFICITS Priority: Medium Current Visit: No Problem List Initiated/Reviewed/Updated: Yes Plan: I/P: Acute: S/P right reverse total shoulder arthroplasty - post-operative day 0 -DVT prophylaxis and pain management per primary care team -PT/OT -IS/RT -Monitor oxygen saturation -PRN Duonebs -Titrate oxygen as needed -Home medications reviewed -Vital signs stable -Monitor labs -Pre-operative Hgb was 14.4 -Pre-operative GFR was 52 -Pre-operative AST was 43 Osteoarthritis of right shoulder -Pain management per primary care team Seasonal Allergies/Sore throat -Cough and post-nasal drip -Cepacol lozenges -Likely worsened by anesthesia/ET tube. Chronic: Type II DM HTN CVA Depression Gout HLD Obesity elevated LFTs Neuralgia BLAISE Cardiomegaly LVH asthma Recurrent bronchitis urinary incontinence TIAs Plan: CM for discharge planning GI prophylaxis Home medications as indicated Other orders as listed above Routine AM labs She is a full code. Her PCP is Dr. Parrish Thank you for allowing us to participate in the care of this patient!! Requesting Provider: Dr. Yo Date Consult Requested: 04/01/19 Patient History Reviewed: Yes Admission H&P Reviewed: Yes Time Spent (in minutes): 35
--- NOTE | 2019-04-01 07:43 | PCM.SN ---
- Free Text/Narrative Note: Anesthesia Note: (Right Interscalene Block Note) Date: 04/01/2019 Time Out: 717 Start: 719 Stop: 732 Surgical Procedure: Right Reverse Shoulder Replacement Diagnosis Right Primary shoulder OA Current Procedure: Right interscalene block under US guidance for postoperative pain control requested by Dr. Yo. Patient chart reviewed, risk/benefits discussed with patient, consent obtained. Patient positioned supine, monitors/alarms on, oxygen placed via nasal cannula at 2 LPM. IV sedation administered: Versed 2mg IV, Fentanyl 50mcg IV given in prior to block placement. Right shoulder prepped with two chloropreps. Sterile drapes placed with aseptic technique noted. Under US guidance, right subclavian artery visualized along with the right brachial plexus. Plexus followed up to C6 cricoid level, and area localized with 2mls of 1% lidocaine. 22gauge 2 inch stimiplex needle advanced under US with 0.6mV with stimulation of biceps noted. Good stimulation noted with decreased voltage and absent at 0.2mVs. 1ml of Normal Saline injected with loss of stimulation noted to confirm needle not placed intraneurally. Incremental dosing of 5mls with negative aspiration noted prior to each injection of 0.5% ropivacaine with 1:200,000 epinephrine. Total volume=30mls. Please refer to nurses noted for vital signs. Carmela Orozco CRNA
[2019-04-01] MEDS ORDERED: Phenylephrine/Normal Saline 100 MCG/ML 10 ML Syringe ONE (08:19)
[2019-04-01] MEDS ORDERED: Albuterol 0.083% 2.5 MG/3 ML Neb Soln NEB PRN (08:39)
[2019-04-01] MEDS ORDERED: fentaNYL 100 MCG/2 ML SDV IVPUSH PRN (08:39)
[2019-04-01] MEDS ORDERED: Ondansetron 4 MG/2 ML SDV IVPUSH PRN ×2 (08:39→10:00)
[2019-04-01] MEDS ORDERED: Haloperidol Lactate 5 MG/ML SDV IVPUSH PRN (08:39)
[2019-04-01] MEDS ORDERED: HYDROmorphone 0.5 MG/0.5 ML Syringe IVPUSH PRN (08:39)
[2019-04-01] MEDS ORDERED: Phenylephrine 1 MG in Sodium Chloride 0.9% 10 ML IV SCH (08:45)
[2019-04-01] MEDS ORDERED: Glycopyrrolate 0.2 MG/ML SDV ONE (08:50)
[2019-04-01] MEDS ORDERED: Neostigmine Methylsulfate 1 MG/ML 5 ML Syringe ONE (08:51)
[2019-04-01] MEDS: ceFAZolin 1 GM Vial ONE ×2 (09:04→09:29)
[2019-04-01] MEDS: Iodine/Sodium Iodide 2% Tincture 30 ML Bottle ONE ×2 (09:05→09:26)
[2019-04-01] MEDS: Vancomycin 1 GM SDV ONE ×3 (09:06→09:35)
[2019-04-01] MEDS ORDERED: Albuterol 6.7 GM Inhaler INH PRN (09:53)
[2019-04-01] MEDS ORDERED: Naloxone 0.4 MG/ML SDV IVPUSH PRN (10:00)
[2019-04-01] MEDS ORDERED: Morphine 2 MG/ML Syringe IVPUSH PRN (10:00)
[2019-04-01] MEDS ORDERED: Ketorolac 15 MG/ML SDV IVPUSH PRN (10:00)
[2019-04-01] MEDS ORDERED: Sennosides 8.6 MG Tab PO PRN (10:00)
[2019-04-01] MEDS ORDERED: Bisacodyl 5 MG Tab PO PRN (10:00)
--- NOTE | 2019-04-01 10:22 | PCM.POSTAN ---
POST ANESTHESIA ASSESSMENT - MENTAL STATUS Mental Status: Alert - VITAL SIGNS Vital Signs: Last Vital Signs Temp 36.1 C 04/01/19 1004 Pulse 81 04/01/19 1004 Resp 12 04/01/19 1004 BP 158/85 H 04/01/19 1004 Pulse Ox 95 04/01/19 1004 - RESPIRATORY Respiratory Status: Respiratory Rate WNL, Airway Patent, O2 Saturation Stable, Supplemental Oxygen - CARDIOVASCULAR CV Status: Pulse Rate WNL, Blood Pressure Stable - GASTROINTESTINAL GI Status: No Symptoms - POST OP HYDRATION Hydration Status: Adequate & Stable
[2019-04-01] MEDS ORDERED: Midazolam 1 MG/ML 2 ML SDV IVPUSH ONE (10:24)
[2019-04-01] MEDS ORDERED: Benzocaine/Cetylpyridinium/Menthol Lozenge MUCMEM PRN (14:32)
[2019-04-01] MEDS ORDERED: Albuterol/Ipratropium 3.0-0.5 MG/3 ML Neb Soln NEB PRN (15:00)
[2019-04-01] MEDS: oxyCODONE 5 MG Tab PO PRN ×2 (15:15→21:23)
[2019-04-01] MEDS: ceFAZolin 2 GM in Premix Bag 1 BAG IV SCH ×2 (15:15→23:27)
[2019-04-01] MEDS: Insulin Lispro 100 Units/ML 3 ML Vial SUBCUT SCH ×2 (17:13→21:36)
[2019-04-01] MEDS ORDERED: Insulin Glarg,Human.Rec.Analog 100 UNIT/ML ML SUBCUT SCH (21:00)
[2019-04-01] MEDS: Famotidine 20 MG Tab PO SCH (21:24)
[2019-04-01] MEDS: Docusate Sodium 100 MG Cap PO SCH (21:24)
[2019-04-01] MEDS: Cyclobenzaprine 10 MG Tab PO PRN (23:27)
[2019-04-02] MEDS: oxyCODONE 5 MG Tab PO PRN (03:42)
[2019-04-02] MEDS: Insulin Lispro 100 Units/ML 3 ML Vial SUBCUT SCH ×2 (06:48→12:25)
--- NOTE | 2019-04-02 07:21 | PCM.CONSN ---
<Darwin Cruz - Last Filed: 04/02/19 13:44> - General Info Date of Service: 04/02/19 Admission Dx/Problem (Free Text): Admission Diagnosis/Problem Admission Diagnosis/Problem Osteoarthritis of shoulder Functional Status: Reports: Pain Controlled, Tolerating Diet, Ambulating, Urinating, Incentive Spirometry. Denies: New Symptoms - Review of Systems General: Reports: No Symptoms. Denies: Fever, Chills HEENT: Reports: No Symptoms. Denies: Headaches, Sore Throat Pulmonary: Reports: Cough (Mild occasional ). Denies: Shortness of Breath, Pleuritic Chest Pain, Sputum, Wheezing Cardiovascular: Reports: No Symptoms. Denies: Chest Pain, Palpitations, Dyspnea on Exertion Gastrointestinal: Reports: No Symptoms. Denies: Constipation, Diarrhea, Nausea , Vomiting Genitourinary: Reports: No Symptoms. Denies: Pain Musculoskeletal: Reports: Shoulder Pain (right ) Skin: Reports: No Symptoms. Denies: Cyanosis Neurological: Reports: No Symptoms. Denies: Confusion Psychiatric: Reports: No Symptoms - Patient Data Vitals - Most Recent: Last Vital Signs Temp 98.6 F 04/02/19 03:42 Pulse 68 04/02/19 03:42 Resp 16 04/02/19 03:42 BP 126/67 04/02/19 03:42 Pulse Ox 98 04/02/19 05:42 Weight - Most Recent: 261 lb 12.8 oz I&O - Last 24 Hours: Intake & Output 04/01/19 04/02/19 04/02/19 22:59 06:59 14:59 Intake Total 1770 750 Output Total 300 Balance 1770 450 Lab Results Last 24 Hours: Laboratory Results - last 24 hr 04/01/19 04/01/19 04/01/19 Range/Units 12:12 16:48 20:57 WBC (3.98-10.04) K/mm3 RBC (3.98-5.22) M/mm3 Hgb (11.2-15.7) gm/dl Hct (34.1-44.9) % MCV (79.4-94.8) fl MCH (25.6-32.2) pg MCHC (32.2-35.5) g/dl RDW Std Deviation (36.4-46.3) fL Plt Count (182-369) K/mm3 MPV (9.4-12.3) fl POC Glucose 127 H 116 H 138 H (80-115) mg/dL 04/02/19 04/02/19 Range/Units 05:24 06:32 WBC 10.66 H (3.98-10.04) K/mm3 RBC 4.04 (3.98-5.22) M/mm3 Hgb 11.3 D (11.2-15.7) gm/dl Hct 35.2 (34.1-44.9) % MCV 87.1 (79.4-94.8) fl MCH 28.0 (25.6-32.2) pg MCHC 32.1 L (32.2-35.5) g/dl RDW Std Deviation 46.4 H (36.4-46.3) fL Plt Count 195 (182-369) K/mm3 MPV 11.1 (9.4-12.3) fl POC Glucose 144 H (80-115) mg/dL Med Orders - Current: Current Medications Albuterol/Ipratropium (Duoneb 3.0-0.5 Mg/3 Ml) 3 ml NEB Q6HRRT PRN PRN Reason: SOB/Wheezing Allopurinol (Zyloprim) 100 mg PO DAILY [facility] Aspirin (Ecotrin) 325 mg PO DAILY [facility] Benzocaine/Menthol (Cepacol Sore Throat) 1 lozenge MUCMEM Q6H PRN PRN Reason: Cough/sore throat Last Admin: 04/01/19 15:15 Dose: 1 lozenge Bisacodyl (Dulcolax) 5 mg PO DAILY PRN PRN Reason: Constipation Calcium Carbonate/Glycine (Calcium Carbonate) 1,200 mg PO DAILY [facility] Cholecalciferol (Vitamin D3) 5,000 unit PO DAILY [facility] Clopidogrel Bisulfate (Plavix) 75 mg PO DAILY [facility] Cyclobenzaprine HCl (Flexeril) 5 mg PO BID PRN PRN Reason: Spasms Last Admin: 04/01/19 23:27 Dose: 5 mg Docusate Sodium (Colace) 100 mg PO BID [facility] Last Admin: 04/01/19 21:24 Dose: 100 mg Famotidine (Pepcid) 20 mg PO Q12H [facility] Last Admin: 04/01/19 21:24 Dose: 20 mg Cefazolin Sodium/Dextrose 2 gm (/ Premix) 50 mls @ 100 mls/hr IV Q8H [facility] Stop: 04/02/19 08:29 Last Admin: 04/01/19 23:27 Dose: 100 mls/hr Insulin Glargine (Lantus) 46 unit SUBCUT BEDTIME [facility] Last Admin: 04/01/19 21:24 Dose: 46 units Insulin Human Lispro (Humalog) 0 unit SUBCUT QIDACANDBED [facility]; Protocol Last Admin: 04/02/19 06:48 Dose: Not Given Loratadine (Claritin) 10 mg PO DAILY [facility] Magnesium Oxide (Magnesium Oxide) 400 mg PO DAILY [facility] Metoprolol Succinate (Toprol Xl) 50 mg PO DAILY [facility] Morphine Sulfate (Morphine) 2 mg IVPUSH Q2H PRN PRN Reason: Breakthrough Pain Last Admin: 04/02/19 07:05 Dose: 1 mg Naloxone HCl (Narcan) 0.1 mg IVPUSH Q5M PRN PRN Reason: Oversedation Ondansetron HCl (Zofran) 4 mg IVPUSH Q6H PRN PRN Reason: Nausea/Vomiting Oxycodone HCl (Oxycodone) 5 - 10 mg PO Q6H PRN PRN Reason: Pain Last Admin: 04/02/19 03:42 Dose: 10 mg Rosuvastatin Calcium (Crestor) 5 mg PO DAILY [facility] Senna (Senna) 8.6 mg PO BID PRN PRN Reason: Constipation Sertraline HCl (Zoloft) 50 mg PO DAILY [facility] Discontinued Medications Albuterol (Proventil Neb Soln) 2.5 mg NEB ONETIME ONE Stop: 03/30/19 00:02 Albuterol (Proventil Neb Soln) 2.5 mg NEB ONETIME ONE Stop: 04/01/19 06:52 Last Admin: 04/01/19 06:56 Dose: 2.5 mg Albuterol (Proventil Neb Soln) 2.5 mg NEB ONETIME PRN PRN Reason: bronchodilation Stop: 04/01/19 11:00 Last Admin: 04/01/19 10:37 Dose: 2.5 mg Albuterol (Proventil Hfa) 0 gm INH Q6H PRN PRN Reason: Wheezing Bupivacaine HCl (Sensorcaine-Mpf 0.25%) Confirm Administered Dose 30 ml .ROUTE .STK-MED ONE Stop: 04/01/19 07:03 Cefazolin Sodium (Ancef) Confirm Administered Dose 2 gm .ROUTE .STK-MED ONE Stop: 04/01/19 06:28 Last Admin: 04/01/19 09:29 Dose: 2 gm Cefazolin Sodium (Ancef) Confirm Administered Dose 2 gm .ROUTE .STK-MED ONE Stop: 04/01/19 07:02 Epinephrine HCl (Adrenalin) Confirm Administered Dose 1 mg .ROUTE .STK-MED ONE Stop: 04/01/19 06:16 Fentanyl (Sublimaze) Confirm Administered Dose 250 mcg .ROUTE .STK-MED ONE Stop: 04/01/19 06:29 Fentanyl (Sublimaze) 50 mcg IVPUSH Q5M PRN PRN Reason: Pain Stop: 04/01/19 11:00 Glycopyrrolate (Robinul) Confirm Administered Dose 0.2 mg .ROUTE .STK-MED ONE Stop: 04/01/19 08:51 Glycopyrrolate () Confirm Administered Dose 1 mg .ROUTE .STK-MED ONE Stop: 04/01/19 08:52 Haloperidol Lactate (Haldol) 1 mg IVPUSH ONETIME PRN PRN Reason: PERSISTENT NAUSEA Stop: 04/01/19 11:00 Hydromorphone HCl (Dilaudid) 0.5 mg IVPUSH Q15M PRN PRN Reason: Pain (severe 7-10) Stop: 04/01/19 11:00 Lactated Ringer's (Ringers, Lactated) 1,000 mls @ 125 mls/hr IV ASDIRECTED [facility] Stop: 03/30/19 23:00 Lidocaine HCl (Xylocaine-Mpf 1%) Confirm Administered Dose 2 mls @ as directed .ROUTE .STK-MED ONE Stop: 04/01/19 06:16 Lidocaine HCl (Xylocaine-Mpf 1%) Confirm Administered Dose 6 mls @ as directed .ROUTE .STK-MED ONE Stop: 04/01/19 06:28 Lactated Ringer's (Ringers, Lactated) Confirm Administered Dose 1,000 mls @ as directed .ROUTE .STK-MED ONE Stop: 04/01/19 06:28 Lactated Ringer's (Ringers, Lactated) 1,000 mls @ 125 mls/hr IV ASDIRECTED [facility] Stop: 04/01/19 23:00 Last Admin: 04/01/19 07:04 Dose: 125 mls/hr Lactated Ringer's (Ringers, Lactated) Confirm Administered Dose 1,000 mls @ as directed .ROUTE .STK-MED ONE Stop: 04/01/19 08:21 Phenylephrine HCl 1 mg/ Sodium (Chloride) 10.1 mls @ 1 mls/sec IV TITRATE NAZIA; Protocol Stop: 04/01/19 11:00 Iodine (Iodine 2% Mild Tincture) Confirm Administered Dose 30 ml .ROUTE .STK- MED ONE Stop: 04/01/19 07:03 Last Admin: 04/01/19 09:26 Dose: 18 ml Ketorolac Tromethamine (Toradol) Confirm Administered Dose 30 mg .ROUTE .STK- MED ONE Stop: 04/01/19 06:28 Ketorolac Tromethamine (Toradol) 15 mg IVPUSH Q6H PRN PRN Reason: Pain Last Admin: 04/01/19 23:26 Dose: 15 mg Lidocaine/Sodium Bicarbonate (Buffered Lidocaine 1% In Ns 8.4%) 0.25 ml IDERM ONETIME PRN PRN Reason: Prior to IV Start Stop: 03/30/19 23:00 Lisinopril (Prinivil) 10 mg PO DAILY [facility] Midazolam HCl (Versed 1 Mg/Ml) Confirm Administered Dose 2 mg .ROUTE .STK-MED ONE Stop: 04/01/19 06:29 Midazolam HCl (Versed 1 Mg/Ml) 2 mg IVPUSH ONETIME ONE Stop: 04/01/19 10:25 Last Admin: 04/01/19 10:39 Dose: 1 mg Neostigmine Methylsulfate (Neostigmine) Confirm Administered Dose 5 mg .ROUTE .STK-MED ONE Stop: 04/01/19 08:52 Ondansetron HCl (Zofran) Confirm Administered Dose 4 mg .ROUTE .STK-MED ONE Stop: 04/01/19 06:28 Ondansetron HCl (Zofran) 4 mg IVPUSH ONETIME PRN PRN Reason: Nausea/Vomiting Stop: 04/01/19 11:00 Phenylephrine HCl (Phenylephrine In Ns 100 Mcg/Ml) Confirm Administered Dose 1 mg .ROUTE .STK-MED ONE Stop: 04/01/19 08:20 Propofol (Diprivan 20 Ml) Confirm Administered Dose 200 mg .ROUTE .STK-MED ONE Stop: 04/01/19 06:28 Propofol (Diprivan 20 Ml) Confirm Administered Dose 200 mg .ROUTE .STK-MED ONE Stop: 04/01/19 07:56 Rocuronium [place] (Zemuron) Confirm Administered Dose 50 mg .ROUTE .STK-MED ONE Stop: 04/01/19 06:28 Ropivacaine (Naropin 0.5%) Confirm Administered Dose 30 ml .ROUTE .STK-MED ONE Stop: 04/01/19 06:16 Sodium Chloride (Saline Flush) 10 ml FLUSH ASDIRECTED PRN PRN Reason: Keep Vein Open Stop: 03/30/19 23:00 Tranexamic Acid (Cyklokapron) Confirm Administered Dose 1,000 mg .ROUTE .STK- MED ONE Stop: 04/01/19 07:02 Last Admin: 04/01/19 09:35 Dose: 1,000 mg Vancomycin HCl (Vancomycin) Confirm Administered Dose 1 gm .ROUTE .STK-MED ONE Stop: 04/01/19 07:02 Last Admin: 04/01/19 09:35 Dose: 1 gm - Exam Quality Assessment: DVT Prophylaxis. No: Supplemental Oxygen General: Alert, Oriented, Cooperative, No Acute Distress HEENT: Pupils Equal, Pupils Reactive, EOMI, Mucous Membr. Moist/[place] Neck: Supple, Trachea Midline Lungs: Clear to Auscultation, Normal Respiratory Effort Cardiovascular: Regular Rate, Regular Rhythm GI/Abdominal Exam: Normal Bowel Sounds, Soft, Non-Tender, No Organomegaly, No Distention (Female) Exam: Deferred Back Exam: Normal Inspection, Decreased Range of Motion Extremities: Normal Capillary Refill, Arm Pain (right shoulder ), Limited Range of Motion, Other (Bandage in place on right shoulder. Cooling pack in place ) Skin: Warm, Dry, Intact Wound/Incisions: Dressing Dry and Intact Neurological: No New Focal Deficit Psy/Mental Status: Alert, Normal Affect, Normal Mood Consult PN Assessment/Plan POD#: 1 Procedures: Procedures AIRWAY INHALATION TREATMENT (07/05/18) ASSAY CARBOXYHB QUANT (07/05/18) ASSAY OF BLOOD/URIC ACID (01/27/14) CHEST X-RAY 2VW FRONTAL&LATL (11/09/15) COMP SCREEN MAMMOGRAM ADD-ON (09/30/15) COMPLETE CBC W/AUTO DIFF WBC (01/07/14) CULTURE AEROBIC IDENTIFY (11/05/13) DXA BONE DENSITY AXIAL (09/30/15) ELECTROCARDIOGRAM TRACING (07/05/18) EMERGENCY DEPT VISIT (12/31/18) EMERGENCY DEPT VISIT (07/05/18) EMERGENCY DEPT VISIT (01/27/14) HYDRATE IV INFUSION ADD-ON (04/23/14) HYDRATION IV INFUSION INIT (04/23/14) INCISE FINGER TENDON SHEATH (10/16/18) INJECTION FOR SHOULDER X-RAY (10/26/15) INSERT BLADDER CATHETER (12/31/18) MANUAL THERAPY 1/> REGIONS (03/06/16) MASSAGE THERAPY (10/03/17) MICROBE SUSCEPTIBLE KATY (12/31/18) MR-STAPH DNA AMP PROBE (10/03/18) MRI JOINT UPR EXTREM W/DYE (10/26/15) NEEDLE LOCALIZATION BY XRAY (10/26/15) NEUROMUSCULAR REEDUCATION (10/18/17) PT EVAL MOD COMPLEX 30 MIN (10/03/17) PT EVALUATION (02/06/16) ROUTINE VENIPUNCTURE (01/27/14) THER/PROPH/DIAG INJ SC/IM (01/27/14) THERAPEUTIC EXERCISES (10/18/17) URINALYSIS AUTO W/SCOPE (12/31/18) URINE BACTERIA CULTURE (12/31/18) URINE CULTURE/COLONY COUNT (12/31/18) X-RAY EXAM OF HAND (09/15/13) X-RAY EXAM OF TOE(S) (01/07/14) (1) S/p reverse total shoulder arthroplasty SNOMED Code(s): 564340328, 535204485 Code(s): Z96.619 - PRESENCE OF UNSPECIFIED ARTIFICIAL SHOULDER JOINT Priority: High Qualifiers: Laterality: right Qualified Code(s): Z96.611 - Presence of right artificial shoulder joint (2) Osteoarthritis SNOMED Code(s): 923681712 Code(s): M19.90 - UNSPECIFIED OSTEOARTHRITIS, UNSPECIFIED SITE Priority: High Qualifiers: Osteoarthritis location: shoulder Osteoarthritis type: primary Laterality : right Qualified Code(s): M19.011 - Primary osteoarthritis, right shoulder (3) Diabetes mellitus SNOMED Code(s): 32344471 Code(s): E11.9 - TYPE 2 DIABETES MELLITUS WITHOUT COMPLICATIONS Priority: Medium Qualifiers: Diabetes mellitus type: type 2 Diabetes mellitus correction insulin use: unspecified terminal manager insulin use status Diabetes mellitus complication status : with other specified complication Qualified Code(s): E11.69 - Type 2 diabetes mellitus with other specified complication (4) HTN (hypertension) SNOMED Code(s): 57510635 Code(s): I10 - ESSENTIAL (PRIMARY) HYPERTENSION Priority: Medium Qualifiers: Hypertension type: unspecified Qualified Code(s): I10 - Essential (primary ) hypertension (5) CVA (cerebral vascular accident) SNOMED Code(s): 278188157 Code(s): I63.9 - CEREBRAL INFARCTION, UNSPECIFIED Priority: Medium Qualifiers: CVA mechanism: unspecified Qualified Code(s): I63.9 - Cerebral infarction, unspecified (6) Depression SNOMED Code(s): 23278857 Code(s): F32.9 - MAJOR DEPRESSIVE DISORDER, SINGLE EPISODE, UNSPECIFIED Priority: Low Qualifiers: Depression Type: other depression Qualified Code(s): F32.89 - Other specified depressive episodes (7) HLD (hyperlipidemia) SNOMED Code(s): 46188582 Code(s): E78.5 - HYPERLIPIDEMIA, UNSPECIFIED Priority: Low Qualifiers: Hyperlipidemia type: unspecified Qualified Code(s): E78.5 - Hyperlipidemia , unspecified (8) Obesity SNOMED Code(s): 247048979, 146386290 Code(s): E66.9 - OBESITY, UNSPECIFIED Priority: Medium Qualifiers: Obesity type: unspecified obesity type Obesity classification: adult class 3 (BMI >= 40) Serious obesity comorbidity presence: unspecified whether serious comorbidity present Body mass index: BMI 40.0-44.9 Qualified Code(s) : E66.01 - Morbid (severe) obesity due to excess calories; Z68.41 - Body mass index (BMI) 40.0-44.9, adult (9) Elevated LFTs SNOMED Code(s): 192376846, 203923023 Code(s): R94.5 - ABNORMAL RESULTS OF LIVER FUNCTION STUDIES Priority: Low (10) Neuralgia SNOMED Code(s): 30979697 Code(s): M79.2 - NEURALGIA AND NEURITIS, UNSPECIFIED Priority: Low (11) BLAISE (obstructive sleep apnea) SNOMED Code(s): 94118327 Code(s): G47.33 - OBSTRUCTIVE SLEEP APNEA (ADULT) (PEDIATRIC) Priority: Medium (12) Cardiomegaly SNOMED Code(s): 1010906 Code(s): I51.7 - CARDIOMEGALY Priority: Medium (13) LVH (left ventricular hypertrophy) SNOMED Code(s): 50732463 Code(s): I51.7 - CARDIOMEGALY Priority: Low (14) Gout SNOMED Code(s): 09870794 Code(s): M10.9 - GOUT, UNSPECIFIED Priority: Low (15) Asthma SNOMED Code(s): 251935319 Code(s): J45.909 - UNSPECIFIED ASTHMA, UNCOMPLICATED Priority: Medium Qualifiers: Asthma severity: unspecified severity Asthma persistence: unspecified Asthma complication type: unspecified Qualified Code(s): J45.909 - Unspecified asthma, uncomplicated (16) Incontinence SNOMED Code(s): 92556767 Code(s): R32 - UNSPECIFIED URINARY INCONTINENCE Priority: Low Qualifiers: Incontinence type: urinary Urinary Incontinence type: unspecified incontinence Qualified Code(s): R32 - Unspecified urinary incontinence (17) History of TIAs SNOMED Code(s): 247389829 Code(s): Z86.73 - PRSNL HX OF TIA (TIA), AND CEREB INFRC W/O RESID DEFICITS Priority: Medium Problem List Initiated/Reviewed/Updated: Yes My Orders Last 24 Hours: My Active Orders 04/01/19 12:01 Blood Glucose Check, Bedside [RC] WITHMEALSANDBED 04/01/19 13:49 Patient Status [ADT] Routine 04/01/19 14:32 Benzocaine/Cetylpyrd/Menthol [Cepacol Sore Throat] 1 lozenge MUCMEM Q6H PRN 04/01/19 14:33 RT Aerosol Therapy [RC] ASDIRECTED Consult to Respiratory Therapy [Respiratory Care Assess and Treatment] [CONS] Routine 04/01/19 15:00 Albuterol/Ipratropium [DuoNeb 3.0-0.5 MG/3 ML] 3 ml NEB Q6HRRT PRN 04/01/19 17:00 Insulin Lispro [HumaLOG] See Protocol SUBCUT QIDACANDBED 04/01/19 21:00 Insulin Glarg,Human.Rec.Analog [LantUS] 46 unit SUBCUT BEDTIME Plan: I/P: Acute: S/P right reverse total shoulder arthroplasty - post-operative day 1 -DVT prophylaxis and pain management per primary care team -PT/OT -IS/RT -Monitor oxygen saturation -PRN Duonebs -Titrate oxygen as needed -Home medications reviewed -Vital signs stable -Monitor labs -Pre-operative Hgb was 14.4; Now 11.3 -Pre-operative GFR was 52; Now 55 -Pre-operative AST was 43; Now 23 Osteoarthritis of right shoulder -Pain management per primary care team Seasonal Allergies/Sore throat -Cough and post-nasal drip -Cepacol lozenges -Likely worsened by anesthesia/ET tube. Chronic: Type II DM HTN CVA Depression Gout HLD Obesity elevated LFTs Neuralgia BLAISE Cardiomegaly LVH asthma Recurrent bronchitis urinary incontinence TIAs Plan: CM for discharge planning GI prophylaxis Home medications as indicated Other orders as listed above Routine AM labs She is a full code. Her PCP is Dr. Francois Parks from a hospitalist standpoint and Iris is doing well. She has been up ambulating and working with therapies. She is off of oxygen and has urinated. Pain is still present but is more controlled and primary team has been working on this. Her labs and vital signs remained stable. She has been utilizing her incentive spirometry. She is clear for discharge pending primary team and PT/ OT agreement. Thank you for allowing us to participate in the care of this patient!! <Williams Caballero III - Last Filed: 04/02/19 17:15> - Patient Data Vitals - Most Recent: Last Vital Signs Temp 97.9 F 04/02/19 11:35 Pulse 73 04/02/19 11:35 Resp 16 04/02/19 11:35 BP 154/77 H 04/02/19 11:35 Pulse Ox 92 L 04/02/19 11:35 I&O - Last 24 Hours: Intake & Output 04/02/19 04/02/19 04/02/19 06:59 14:59 22:59 Intake Total 750 700 Output Total 300 1300 Balance 450 -600 Lab Results Last 24 Hours: Laboratory Results - last 24 hr 04/01/19 04/01/19 04/01/19 Range/Units 12:12 16:48 20:57 WBC (3.98-10.04) K/mm3 RBC (3.98-5.22) M/mm3 Hgb (11.2-15.7) gm/dl Hct (34.1-44.9) % MCV (79.4-94.8) fl MCH (25.6-32.2) pg MCHC (32.2-35.5) g/dl RDW Std Deviation (36.4-46.3) fL Plt Count (182-369) K/mm3 MPV (9.4-12.3) fl Sodium (136-145) mEq/L Potassium (3.5-5.1) mEq/L Chloride (98-107) mEq/L Carbon Dioxide (21-32) mEq/L Anion Gap (5-15) BUN (7-18) mg/dL Creatinine (0.55-1.02) mg/dL Est Cr Clr Drug Dosing mL/min Estimated GFR (MDRD) (>60) mL/min BUN/Creatinine Ratio (14-18) Glucose (80-115) mg/dL POC Glucose 127 H 116 H 138 H (80-115) mg/dL Calcium (8.5-10.1) mg/dL Total Bilirubin (0.2-1.0) mg/dL AST (15-37) U/L ALT (14-59) U/L Alkaline Phosphatase (46-116) U/L Total Protein (6.4-8.2) g/dl Albumin (3.4-5.0) g/dl Globulin gm/dL Albumin/Globulin Ratio (1-2) 04/02/19 04/02/19 04/02/19 Range/Units 05:24 05:24 06:32 WBC 10.66 H (3.98-10.04) K/mm3 RBC 4.04 (3.98-5.22) M/mm3 Hgb 11.3 D (11.2-15.7) gm/dl Hct 35.2 (34.1-44.9) % MCV 87.1 (79.4-94.8) fl MCH 28.0 (25.6-32.2) pg MCHC 32.1 L (32.2-35.5) g/dl RDW Std Deviation 46.4 H (36.4-46.3) fL Plt Count 195 (182-369) K/mm3 MPV 11.1 (9.4-12.3) fl Sodium 136 (136-145) mEq/L Potassium 3.7 (3.5-5.1) mEq/L Chloride 102 (98-107) mEq/L Carbon Dioxide 25 (21-32) mEq/L Anion Gap 12.7 (5-15) BUN 15 (7-18) mg/dL Creatinine 1.0 (0.55-1.02) mg/dL Est Cr Clr Drug Dosing 50.41 mL/min Estimated GFR (MDRD) 55 (>60) mL/min BUN/Creatinine Ratio 15.0 (14-18) Glucose 135 H (80-115) mg/dL POC Glucose 144 H (80-115) mg/dL Calcium 8.0 L (8.5-10.1) mg/dL Total Bilirubin 0.5 (0.2-1.0) mg/dL AST 23 (15-37) U/L ALT 19 (14-59) U/L Alkaline Phosphatase 44 L (46-116) U/L Total Protein 6.2 L (6.4-8.2) g/dl Albumin 3.1 L (3.4-5.0) g/dl Globulin 3.1 gm/dL Albumin/Globulin Ratio 1.0 (1-2) 04/02/19 Range/Units 11:37 WBC (3.98-10.04) K/mm3 RBC (3.98-5.22) M/mm3 Hgb (11.2-15.7) gm/dl Hct (34.1-44.9) % MCV (79.4-94.8) fl MCH (25.6-32.2) pg MCHC (32.2-35.5) g/dl RDW Std Deviation (36.4-46.3) fL Plt Count (182-369) K/mm3 MPV (9.4-12.3) fl Sodium (136-145) mEq/L Potassium (3.5-5.1) mEq/L Chloride (98-107) mEq/L Carbon Dioxide (21-32) mEq/L Anion Gap (5-15) BUN (7-18) mg/dL Creatinine (0.55-1.02) mg/dL Est Cr Clr Drug Dosing mL/min Estimated GFR (MDRD) (>60) mL/min BUN/Creatinine Ratio (14-18) Glucose (80-115) mg/dL POC Glucose 160 H (80-115) mg/dL Calcium (8.5-10.1) mg/dL Total Bilirubin (0.2-1.0) mg/dL AST (15-37) U/L ALT (14-59) U/L Alkaline Phosphatase (46-116) U/L Total Protein (6.4-8.2) g/dl Albumin (3.4-5.0) g/dl Globulin gm/dL Albumin/Globulin Ratio (1-2) Med Orders - Current: Current Medications Discontinued Medications Albuterol (Proventil Neb Soln) 2.5 mg NEB ONETIME ONE Stop: 03/30/19 00:02 Albuterol (Proventil Neb Soln) 2.5 mg NEB ONETIME ONE Stop: 04/01/19 06:52 Last Admin: 04/01/19 06:56 Dose: 2.5 mg Albuterol (Proventil Neb Soln) 2.5 mg NEB ONETIME PRN PRN Reason: bronchodilation Stop: 04/01/19 11:00 Last Admin: 04/01/19 10:37 Dose: 2.5 mg Albuterol (Proventil Hfa) 0 gm INH Q6H PRN PRN Reason: Wheezing Albuterol/Ipratropium (Duoneb 3.0-0.5 Mg/3 Ml) 3 ml NEB Q6HRRT PRN PRN Reason: SOB/Wheezing Allopurinol (Zyloprim) 100 mg PO DAILY [facility] Last Admin: 04/02/19 09:26 Dose: 100 mg Aspirin (Ecotrin) 325 mg PO DAILY [facility] Last Admin: 04/02/19 09:28 Dose: 325 mg Benzocaine/Menthol (Cepacol Sore Throat) 1 lozenge MUCMEM Q6H PRN PRN Reason: Cough/sore throat Last Admin: 04/01/19 15:15 Dose: 1 lozenge Bisacodyl (Dulcolax) 5 mg PO DAILY PRN PRN Reason: Constipation Bupivacaine HCl (Sensorcaine-Mpf 0.25%) Confirm Administered Dose 30 ml .ROUTE .STK-MED ONE Stop: 04/01/19 07:03 Calcium Carbonate/Glycine (Calcium Carbonate) 1,200 mg PO DAILY [facility] Last Admin: 04/02/19 09:23 Dose: 1,200 mg Cefazolin Sodium (Ancef) Confirm Administered Dose 2 gm .ROUTE .STK-MED ONE Stop: 04/01/19 06:28 Last Admin: 04/01/19 09:29 Dose: 2 gm Cefazolin Sodium (Ancef) Confirm Administered Dose 2 gm .ROUTE .STK-MED ONE Stop: 04/01/19 07:02 Cholecalciferol (Vitamin D3) 5,000 unit PO DAILY [facility] Last Admin: 04/02/19 09:27 Dose: 5,000 unit Clopidogrel Bisulfate (Plavix) 75 mg PO DAILY [facility] Last Admin: 04/02/19 09:30 Dose: 75 mg Cyclobenzaprine HCl (Flexeril) 5 mg PO BID PRN PRN Reason: Spasms Last Admin: 04/02/19 12:23 Dose: 5 mg Docusate Sodium (Colace) 100 mg PO BID [facility] Last Admin: 04/02/19 09:28 Dose: 100 mg Epinephrine HCl (Adrenalin) Confirm Administered Dose 1 mg .ROUTE .STK-MED ONE Stop: 04/01/19 06:16 Famotidine (Pepcid) 20 mg PO Q12H [facility] Last Admin: 04/02/19 09:27 Dose: 20 mg Fentanyl (Sublimaze) Confirm Administered Dose 250 mcg .ROUTE .STK-MED ONE Stop: 04/01/19 06:29 Fentanyl (Sublimaze) 50 mcg IVPUSH Q5M PRN PRN Reason: Pain Stop: 04/01/19 11:00 Glycopyrrolate (Robinul) Confirm Administered Dose 0.2 mg .ROUTE .STK-MED ONE Stop: 04/01/19 08:51 Glycopyrrolate () Confirm Administered Dose 1 mg .ROUTE .STK-MED ONE Stop: 04/01/19 08:52 Haloperidol Lactate (Haldol) 1 mg IVPUSH ONETIME PRN PRN Reason: PERSISTENT NAUSEA Stop: 04/01/19 11:00 Hydromorphone HCl (Dilaudid) 0.5 mg IVPUSH Q15M PRN PRN Reason: Pain (severe 7-10) Stop: 04/01/19 11:00 Lactated Ringer's (Ringers, Lactated) 1,000 mls @ 125 mls/hr IV ASDIRECTED NAZIA Stop: 03/30/19 23:00 Lidocaine HCl (Xylocaine-Mpf 1%) Confirm Administered Dose 2 mls @ as directed .ROUTE .STK-MED ONE Stop: 04/01/19 06:16 Lidocaine HCl (Xylocaine-Mpf 1%) Confirm Administered Dose 6 mls @ as directed .ROUTE .STK-MED ONE Stop: 04/01/19 06:28 Lactated Ringer's (Ringers, Lactated) Confirm Administered Dose 1,000 mls @ as directed .ROUTE .STK-MED ONE Stop: 04/01/19 06:28 Cefazolin Sodium/Dextrose 2 gm (/ Premix) 50 mls @ 100 mls/hr IV Q8H [facility] Stop: 04/02/19 08:29 Last Admin: 04/02/19 09:20 Dose: 100 mls/hr Lactated Ringer's (Ringers, Lactated) 1,000 mls @ 125 mls/hr IV ASDIRECTED NAZIA Stop: 04/01/19 23:00 Last Admin: 04/01/19 07:04 Dose: 125 mls/hr Lactated Ringer's (Ringers, Lactated) Confirm Administered Dose 1,000 mls @ as directed .ROUTE .STK-MED ONE Stop: 04/01/19 08:21 Phenylephrine HCl 1 mg/ Sodium (Chloride) 10.1 mls @ 1 mls/sec IV TITRATE NAZIA; Protocol Stop: 04/01/19 11:00 Insulin Glargine (Lantus) 46 unit SUBCUT BEDTIME [facility] Last Admin: 04/01/19 21:24 Dose: 46 units Insulin Human Lispro (Humalog) 0 unit SUBCUT QIDACANDBED NAZIA; Protocol Last Admin: 04/02/19 12:25 Dose: Not Given Iodine (Iodine 2% Mild Tincture) Confirm Administered Dose 30 ml .ROUTE .STK- MED ONE Stop: 04/01/19 07:03 Last Admin: 04/01/19 09:26 Dose: 18 ml Ketorolac Tromethamine (Toradol) Confirm Administered Dose 30 mg .ROUTE .STK- MED ONE Stop: 04/01/19 06:28 Ketorolac Tromethamine (Toradol) 15 mg IVPUSH Q6H PRN PRN Reason: Pain Last Admin: 04/01/19 23:26 Dose: 15 mg Lidocaine/Sodium Bicarbonate (Buffered Lidocaine 1% In Ns 8.4%) 0.25 ml IDERM ONETIME PRN PRN Reason: Prior to IV Start Stop: 03/30/19 23:00 Lisinopril (Prinivil) 10 mg PO DAILY [facility] Loratadine (Claritin) 10 mg PO DAILY [facility] [facility] Last Admin: 04/02/19 09:30 Dose: 10 mg Magnesium Oxide (Magnesium Oxide) 400 mg PO DAILY [facility] Last Admin: 04/02/19 09:25 Dose: 400 mg Metoprolol Succinate (Toprol Xl) 50 mg PO DAILY [facility] Last Admin: 04/02/19 09:29 Dose: 50 mg Midazolam HCl (Versed 1 Mg/Ml) Confirm Administered Dose 2 mg .ROUTE .STK-MED ONE Stop: 04/01/19 06:29 Midazolam HCl (Versed 1 Mg/Ml) 2 mg IVPUSH ONETIME ONE Stop: 04/01/19 10:25 Last Admin: 04/01/19 10:39 Dose: 1 mg Morphine Sulfate (Morphine) 2 mg IVPUSH Q2H PRN PRN Reason: Breakthrough Pain Last Admin: 04/02/19 07:05 Dose: 1 mg Naloxone HCl (Narcan) 0.1 mg IVPUSH Q5M PRN PRN Reason: Oversedation Neostigmine Methylsulfate (Neostigmine) Confirm Administered Dose 5 mg .ROUTE .STK-MED ONE Stop: 04/01/19 08:52 Ondansetron HCl (Zofran) Confirm Administered Dose 4 mg .ROUTE .STK-MED ONE Stop: 04/01/19 06:28 Ondansetron HCl (Zofran) 4 mg IVPUSH Q6H PRN PRN Reason: Nausea/Vomiting Ondansetron HCl (Zofran) 4 mg IVPUSH ONETIME PRN PRN Reason: Nausea/Vomiting Stop: 04/01/19 11:00 Oxycodone HCl (Oxycodone) 5 - 10 mg PO Q6H PRN PRN Reason: Pain Last Admin: 04/02/19 03:42 Dose: 10 mg Oxycodone HCl (Oxycodone) 5 - 10 mg PO Q4H PRN PRN Reason: Pain Last Admin: 04/02/19 09:24 Dose: 10 mg Phenylephrine HCl (Phenylephrine In Ns 100 Mcg/Ml) Confirm Administered Dose 1 mg .ROUTE .STK-MED ONE Stop: 04/01/19 08:20 Propofol (Diprivan 20 Ml) Confirm Administered Dose 200 mg .ROUTE .STK-MED ONE Stop: 04/01/19 06:28 Propofol (Diprivan 20 Ml) Confirm Administered Dose 200 mg .ROUTE .STK-MED ONE Stop: 04/01/19 07:56 Rocuronium [place] (Zemuron) Confirm Administered Dose 50 mg .ROUTE .STK-MED ONE Stop: 04/01/19 06:28 Ropivacaine (Naropin 0.5%) Confirm Administered Dose 30 ml .ROUTE .STK-MED ONE Stop: 04/01/19 06:16 Rosuvastatin Calcium (Crestor) 5 mg PO DAILY [facility] Last Admin: 04/02/19 09:25 Dose: 5 mg Senna (Senna) 8.6 mg PO BID PRN PRN Reason: Constipation Sertraline HCl (Zoloft) 50 mg PO DAILY [facility] Last Admin: 04/02/19 09:26 Dose: 50 mg Sodium Chloride (Saline Flush) 10 ml FLUSH ASDIRECTED PRN PRN Reason: Keep Vein Open Stop: 03/30/19 23:00 Tranexamic Acid (Cyklokapron) Confirm Administered Dose 1,000 mg .ROUTE .STK- MED ONE Stop: 04/01/19 07:02 Last Admin: 04/01/19 09:35 Dose: 1,000 mg Vancomycin HCl (Vancomycin) Confirm Administered Dose 1 gm .ROUTE .STK-MED ONE Stop: 04/01/19 07:02 Last Admin: 04/01/19 09:35 Dose: 1 gm Consult PN Assessment/Plan Procedures: Procedures AIRWAY INHALATION TREATMENT (07/05/18) ASSAY CARBOXYHB QUANT (07/05/18) ASSAY OF BLOOD/URIC ACID (01/27/14) CHEST X-RAY 2VW FRONTAL&LATL (11/09/15) COMP SCREEN MAMMOGRAM ADD-ON (09/30/15) COMPLETE CBC W/AUTO DIFF WBC (01/07/14) CULTURE AEROBIC IDENTIFY (11/05/13) DXA BONE DENSITY AXIAL (09/30/15) ELECTROCARDIOGRAM TRACING (07/05/18) EMERGENCY DEPT VISIT (12/31/18) EMERGENCY DEPT VISIT (07/05/18) EMERGENCY DEPT VISIT (01/27/14) HYDRATE IV INFUSION ADD-ON (04/23/14) HYDRATION IV INFUSION INIT (04/23/14) INCISE FINGER TENDON SHEATH (10/16/18) INJECTION FOR SHOULDER X-RAY (10/26/15) INSERT BLADDER CATHETER (12/31/18) MANUAL THERAPY 1/> [facility] (03/06/16) MASSAGE THERAPY (10/03/17) MICROBE SUSCEPTIBLE KATY (12/31/18) MR-STAPH DNA AMP PROBE (10/03/18) MRI JOINT UPR EXTREM W/DYE (10/26/15) NEEDLE LOCALIZATION BY XRAY (10/26/15) NEUROMUSCULAR REEDUCATION (10/18/17) PT EVAL MOD COMPLEX 30 MIN (10/03/17) PT EVALUATION (02/06/16) ROUTINE VENIPUNCTURE (01/27/14) THER/PROPH/DIAG INJ SC/IM (01/27/14) THERAPEUTIC EXERCISES (10/18/17) URINALYSIS AUTO W/SCOPE (12/31/18) URINE BACTERIA CULTURE (12/31/18) URINE CULTURE/COLONY COUNT (12/31/18) X-RAY EXAM OF HAND (09/15/13) X-RAY EXAM OF TOE(S) (01/07/14) Plan: Patient was seen, examined, and evaluated personally and I agree with the above findings, assessment, and plan.
--- NOTE | 2019-04-02 07:38 | CR ---
Right shoulder: Single AP view of the right shoulder was obtained utilizing portable technique. Comparison: Previous operative study performed earlier on the same day (9:29 AM). Right shoulder prosthesis is seen. Components are aligned. Slight inferior spurring is noted within the acromioclavicular joint. No acute fracture or other abnormality is seen. Impression: 1. Right shoulder prosthesis. 2. Slight inferior spurring within the acromioclavicular joint. Diagnostic code #2 I agree with preliminary report from [facility], finalized on 04/01/19, 11:23 AM Central Time
--- NOTE | 2019-04-02 07:38 | CR ---
Right shoulder: Three fluoroscopic spot views were obtained of the right shoulder utilizing C-arm device in the operating room. Comparison: Prior MRI right shoulder arthrogram exam of 10/26/15. Reverse right shoulder prosthesis is seen. Components are aligned. Underlying bony structures are grossly intact. Impression: 1. Procedural study showing reverse right shoulder prosthesis placement. Diagnostic code #2 I agree with preliminary report from [facility], finalized on 04/01/19, 10:48 AM Central Time
[2019-04-02] MEDS ORDERED: oxyCODONE 5 MG Tab PO PRN (08:27)
--- NOTE | 2019-04-02 08:30 | PCM.SURGPN ---
- General Info Date of Service: 04/02/19 POD#: 1 Functional Status: Reports: Pain Controlled, Tolerating Diet, Ambulating, Urinating, Other (The pt states her pain is better controlled this morning.) - Patient Data Vitals - Most Recent: Last Vital Signs Temp 98.6 F 04/02/19 03:42 Pulse 68 04/02/19 03:42 Resp 16 04/02/19 03:42 BP 126/67 04/02/19 03:42 Pulse Ox 98 04/02/19 05:42 Weight - Most Recent: 261 lb 12.8 oz I&O - Last 24 Hours: Intake & Output 04/01/19 04/02/19 04/02/19 22:59 06:59 14:59 Intake Total 1770 750 Output Total 300 Balance 1770 450 Lab Results Last 24 Hrs: Laboratory Results - last 24 hr 04/01/19 04/01/19 04/01/19 Range/Units 12:12 16:48 20:57 WBC (3.98-10.04) K/mm3 RBC (3.98-5.22) M/mm3 Hgb (11.2-15.7) gm/dl Hct (34.1-44.9) % MCV (79.4-94.8) fl MCH (25.6-32.2) pg MCHC (32.2-35.5) g/dl RDW Std Deviation (36.4-46.3) fL Plt Count (182-369) K/mm3 MPV (9.4-12.3) fl Sodium (136-145) mEq/L Potassium (3.5-5.1) mEq/L Chloride (98-107) mEq/L Carbon Dioxide (21-32) mEq/L Anion Gap (5-15) BUN (7-18) mg/dL Creatinine (0.55-1.02) mg/dL Est Cr Clr Drug Dosing mL/min Estimated GFR (MDRD) (>60) mL/min BUN/Creatinine Ratio (14-18) Glucose (80-115) mg/dL POC Glucose 127 H 116 H 138 H (80-115) mg/dL Calcium (8.5-10.1) mg/dL Total Bilirubin (0.2-1.0) mg/dL AST (15-37) U/L ALT (14-59) U/L Alkaline Phosphatase (46-116) U/L Total Protein (6.4-8.2) g/dl Albumin (3.4-5.0) g/dl Globulin gm/dL Albumin/Globulin Ratio (1-2) 04/02/19 04/02/19 04/02/19 Range/Units 05:24 05:24 06:32 WBC 10.66 H (3.98-10.04) K/mm3 RBC 4.04 (3.98-5.22) M/mm3 Hgb 11.3 D (11.2-15.7) gm/dl Hct 35.2 (34.1-44.9) % MCV 87.1 (79.4-94.8) fl MCH 28.0 (25.6-32.2) pg MCHC 32.1 L (32.2-35.5) g/dl RDW Std Deviation 46.4 H (36.4-46.3) fL Plt Count 195 (182-369) K/mm3 MPV 11.1 (9.4-12.3) fl Sodium 136 (136-145) mEq/L Potassium 3.7 (3.5-5.1) mEq/L Chloride 102 (98-107) mEq/L Carbon Dioxide 25 (21-32) mEq/L Anion Gap 12.7 (5-15) BUN 15 (7-18) mg/dL Creatinine 1.0 (0.55-1.02) mg/dL Est Cr Clr Drug Dosing 50.41 mL/min Estimated GFR (MDRD) 55 (>60) mL/min BUN/Creatinine Ratio 15.0 (14-18) Glucose 135 H (80-115) mg/dL POC Glucose 144 H (80-115) mg/dL Calcium 8.0 L (8.5-10.1) mg/dL Total Bilirubin 0.5 (0.2-1.0) mg/dL AST 23 (15-37) U/L ALT 19 (14-59) U/L Alkaline Phosphatase 44 L (46-116) U/L Total Protein 6.2 L (6.4-8.2) g/dl Albumin 3.1 L (3.4-5.0) g/dl Globulin 3.1 gm/dL Albumin/Globulin Ratio 1.0 (1-2) Med Orders - Current: Current Medications Albuterol/Ipratropium (Duoneb 3.0-0.5 Mg/3 Ml) 3 ml NEB Q6HRRT PRN PRN Reason: SOB/Wheezing Allopurinol (Zyloprim) 100 mg PO DAILY [facility] Aspirin (Ecotrin) 325 mg PO DAILY [facility] Benzocaine/Menthol (Cepacol Sore Throat) 1 lozenge MUCMEM Q6H PRN PRN Reason: Cough/sore throat Last Admin: 04/01/19 15:15 Dose: 1 lozenge Bisacodyl (Dulcolax) 5 mg PO DAILY PRN PRN Reason: Constipation Calcium Carbonate/Glycine (Calcium Carbonate) 1,200 mg PO DAILY [facility] Cholecalciferol (Vitamin D3) 5,000 unit PO DAILY [facility] Clopidogrel Bisulfate (Plavix) 75 mg PO DAILY [facility] Cyclobenzaprine HCl (Flexeril) 5 mg PO BID PRN PRN Reason: Spasms Last Admin: 04/01/19 23:27 Dose: 5 mg Docusate Sodium (Colace) 100 mg PO BID [facility] Last Admin: 04/01/19 21:24 Dose: 100 mg Famotidine (Pepcid) 20 mg PO Q12H [facility] Last Admin: 04/01/19 21:24 Dose: 20 mg Insulin Glargine (Lantus) 46 unit SUBCUT BEDTIME [facility] Last Admin: 04/01/19 21:24 Dose: 46 units Insulin Human Lispro (Humalog) 0 unit SUBCUT QIDACANDBED [facility]; Protocol Last Admin: 04/02/19 06:48 Dose: Not Given Loratadine (Claritin) 10 mg PO DAILY [facility] Magnesium Oxide (Magnesium Oxide) 400 mg PO DAILY [facility] Metoprolol Succinate (Toprol Xl) 50 mg PO DAILY [facility] Morphine Sulfate (Morphine) 2 mg IVPUSH Q2H PRN PRN Reason: Breakthrough Pain Last Admin: 04/02/19 07:05 Dose: 1 mg Naloxone HCl (Narcan) 0.1 mg IVPUSH Q5M PRN PRN Reason: Oversedation Ondansetron HCl (Zofran) 4 mg IVPUSH Q6H PRN PRN Reason: Nausea/Vomiting Oxycodone HCl (Oxycodone) 5 - 10 mg PO Q4H PRN PRN Reason: Pain Rosuvastatin Calcium (Crestor) 5 mg PO DAILY [facility] Senna (Senna) 8.6 mg PO BID PRN PRN Reason: Constipation Sertraline HCl (Zoloft) 50 mg PO DAILY [facility] Discontinued Medications Albuterol (Proventil Neb Soln) 2.5 mg NEB ONETIME ONE Stop: 03/30/19 00:02 Albuterol (Proventil Neb Soln) 2.5 mg NEB ONETIME ONE Stop: 04/01/19 06:52 Last Admin: 04/01/19 06:56 Dose: 2.5 mg Albuterol (Proventil Neb Soln) 2.5 mg NEB ONETIME PRN PRN Reason: bronchodilation Stop: 04/01/19 11:00 Last Admin: 04/01/19 10:37 Dose: 2.5 mg Albuterol (Proventil Hfa) 0 gm INH Q6H PRN PRN Reason: Wheezing Bupivacaine HCl (Sensorcaine-Mpf 0.25%) Confirm Administered Dose 30 ml .ROUTE .STK-MED ONE Stop: 04/01/19 07:03 Cefazolin Sodium (Ancef) Confirm Administered Dose 2 gm .ROUTE .STK-MED ONE Stop: 04/01/19 06:28 Last Admin: 04/01/19 09:29 Dose: 2 gm Cefazolin Sodium (Ancef) Confirm Administered Dose 2 gm .ROUTE .STK-MED ONE Stop: 04/01/19 07:02 Epinephrine HCl (Adrenalin) Confirm Administered Dose 1 mg .ROUTE .STK-MED ONE Stop: 04/01/19 06:16 Fentanyl (Sublimaze) Confirm Administered Dose 250 mcg .ROUTE .STK-MED ONE Stop: 04/01/19 06:29 Fentanyl (Sublimaze) 50 mcg IVPUSH Q5M PRN PRN Reason: Pain Stop: 04/01/19 11:00 Glycopyrrolate (Robinul) Confirm Administered Dose 0.2 mg .ROUTE .STK-MED ONE Stop: 04/01/19 08:51 Glycopyrrolate () Confirm Administered Dose 1 mg .ROUTE .STK-MED ONE Stop: 04/01/19 08:52 Haloperidol Lactate (Haldol) 1 mg IVPUSH ONETIME PRN PRN Reason: PERSISTENT NAUSEA Stop: 04/01/19 11:00 Hydromorphone HCl (Dilaudid) 0.5 mg IVPUSH Q15M PRN PRN Reason: Pain (severe 7-10) Stop: 04/01/19 11:00 Lactated Ringer's (Ringers, Lactated) 1,000 mls @ 125 mls/hr IV ASDIRECTED [facility] Stop: 03/30/19 23:00 Lidocaine HCl (Xylocaine-Mpf 1%) Confirm Administered Dose 2 mls @ as directed .ROUTE .STK-MED ONE Stop: 04/01/19 06:16 Lidocaine HCl (Xylocaine-Mpf 1%) Confirm Administered Dose 6 mls @ as directed .ROUTE .STK-MED ONE Stop: 04/01/19 06:28 Lactated Ringer's (Ringers, Lactated) Confirm Administered Dose 1,000 mls @ as directed .ROUTE .STK-MED ONE Stop: 04/01/19 06:28 Cefazolin Sodium/Dextrose 2 gm (/ Premix) 50 mls @ 100 mls/hr IV Q8H [facility] Stop: 04/02/19 08:29 Last Admin: 04/01/19 23:27 Dose: 100 mls/hr Lactated Ringer's (Ringers, Lactated) 1,000 mls @ 125 mls/hr IV ASDIRECTED [facility] Stop: 04/01/19 23:00 Last Admin: 04/01/19 07:04 Dose: 125 mls/hr Lactated Ringer's (Ringers, Lactated) Confirm Administered Dose 1,000 mls @ as directed .ROUTE .STK-MED ONE Stop: 04/01/19 08:21 Phenylephrine HCl 1 mg/ Sodium (Chloride) 10.1 mls @ 1 mls/sec IV TITRATE [facility]; Protocol Stop: 04/01/19 11:00 Iodine (Iodine 2% Mild Tincture) Confirm Administered Dose 30 ml .ROUTE .STK- MED ONE Stop: 04/01/19 07:03 Last Admin: 04/01/19 09:26 Dose: 18 ml Ketorolac Tromethamine (Toradol) Confirm Administered Dose 30 mg .ROUTE .STK- MED ONE Stop: 04/01/19 06:28 Ketorolac Tromethamine (Toradol) 15 mg IVPUSH Q6H PRN PRN Reason: Pain Last Admin: 04/01/19 23:26 Dose: 15 mg Lidocaine/Sodium Bicarbonate (Buffered Lidocaine 1% In Ns 8.4%) 0.25 ml IDERM ONETIME PRN PRN Reason: Prior to IV Start Stop: 03/30/19 23:00 Lisinopril (Prinivil) 10 mg PO DAILY [facility] Midazolam HCl (Versed 1 Mg/Ml) Confirm Administered Dose 2 mg .ROUTE .STK-MED ONE Stop: 04/01/19 06:29 Midazolam HCl (Versed 1 Mg/Ml) 2 mg IVPUSH ONETIME ONE Stop: 04/01/19 10:25 Last Admin: 04/01/19 10:39 Dose: 1 mg Neostigmine Methylsulfate (Neostigmine) Confirm Administered Dose 5 mg .ROUTE .STK-MED ONE Stop: 04/01/19 08:52 Ondansetron HCl (Zofran) Confirm Administered Dose 4 mg .ROUTE .STK-MED ONE Stop: 04/01/19 06:28 Ondansetron HCl (Zofran) 4 mg IVPUSH ONETIME PRN PRN Reason: Nausea/Vomiting Stop: 04/01/19 11:00 Oxycodone HCl (Oxycodone) 5 - 10 mg PO Q6H PRN PRN Reason: Pain Last Admin: 04/02/19 03:42 Dose: 10 mg Phenylephrine HCl (Phenylephrine In Ns 100 Mcg/Ml) Confirm Administered Dose 1 mg .ROUTE .STK-MED ONE Stop: 04/01/19 08:20 Propofol (Diprivan 20 Ml) Confirm Administered Dose 200 mg .ROUTE .STK-MED ONE Stop: 04/01/19 06:28 Propofol (Diprivan 20 Ml) Confirm Administered Dose 200 mg .ROUTE .STK-MED ONE Stop: 04/01/19 07:56 Rocuronium Radiant (Zemuron) Confirm Administered Dose 50 mg .ROUTE .STK-MED ONE Stop: 04/01/19 06:28 Ropivacaine (Naropin 0.5%) Confirm Administered Dose 30 ml .ROUTE .STK-MED ONE Stop: 04/01/19 06:16 Sodium Chloride (Saline Flush) 10 ml FLUSH ASDIRECTED PRN PRN Reason: Keep Vein Open Stop: 03/30/19 23:00 Tranexamic Acid (Cyklokapron) Confirm Administered Dose 1,000 mg .ROUTE .STK- MED ONE Stop: 04/01/19 07:02 Last Admin: 04/01/19 09:35 Dose: 1,000 mg Vancomycin HCl (Vancomycin) Confirm Administered Dose 1 gm .ROUTE .STK-MED ONE Stop: 04/01/19 07:02 Last Admin: 04/01/19 09:35 Dose: 1 gm - Exam Wound/Incisions: Dressing Dry and Intact General: Alert, Cooperative, No Acute Distress Lungs: Normal Respiratory Effort Extremities: Other (NVS intact for RUE. Rachel's negative BLE. ) - Problem List Review Problem List Initiated/Reviewed/Updated: Yes - My Orders Last 24 Hours: Active Orders 24 hr Category Date Time Status Patient Status [ADT] Routine ADT 04/01/19 13:49 Active Blood Glucose Check, Bedside [RC] WITHMEALSANDBED Care 04/01/19 12:01 Active Cooling Warming Measures [RC] ASDIRECTED Care 04/01/19 08:38 Inactive Notify Provider [RC] ASDIRECTED Care 04/01/19 08:39 Active Pulse Oximetry [RC] ASDIRECTED Care 04/01/19 08:38 Active RT Aerosol Therapy [RC] ASDIRECTED Care 04/01/19 14:33 Active Ready for Discharge [RC] PER UNIT ROUTINE Care 04/02/19 08:30 Ordered Vital Signs [RC] Q15M Care 04/01/19 08:38 Inactive Consult to Respiratory Therapy [Respiratory Care Assess Cons 04/01/19 14:33 Active and Treatment] [CONS] Routine [employer] Diet [DIET] Diet 04/01/19 Lunch Active Albuterol/Ipratropium [DuoNeb 3.0-0.5 MG/3 ML] Med 04/01/19 15:00 Active 3 ml NEB Q6HRRT PRN Allopurinol [Zyloprim] Med 04/02/19 09:00 Active 100 mg PO DAILY Aspirin [Ecotrin] Med 04/02/19 09:00 Active 325 mg PO DAILY Benzocaine/Cetylpyrd/Menthol [Cepacol Sore Throat] Med 04/01/19 14:32 Active 1 lozenge MUCMEM Q6H PRN Bisacodyl [Dulcolax] Med 04/01/19 10:00 Active 5 mg PO DAILY PRN Calcium Carbonate Med 04/02/19 09:00 Active 1,200 mg PO DAILY Cholecalciferol (Vitamin D3) [Vitamin D3] Med 04/02/19 09:00 Active 5,000 unit PO DAILY Clopidogrel [Plavix] Med 04/02/19 09:00 Active 75 mg PO DAILY Cyclobenzaprine [Flexeril] Med 04/01/19 10:00 Active 5 mg PO BID PRN Docusate Sodium [Colace] Med 04/01/19 21:00 Active 100 mg PO BID Famotidine [Pepcid] Med 04/01/19 21:00 Active 20 mg PO Q12H Insulin Glarg,Human.Rec.Analog [LantUS] Med 04/01/19 21:00 Active 46 unit SUBCUT BEDTIME Insulin Lispro [HumaLOG] Med 04/01/19 17:00 Active See Protocol SUBCUT QIDACANDBED Loratadine [Claritin] Med 04/02/19 09:00 Active 10 mg PO DAILY Magnesium Oxide Med 04/02/19 09:00 Active 400 mg PO DAILY Metoprolol Succinate [Toprol XL] Med 04/02/19 09:00 Active 50 mg PO DAILY Morphine Med 04/01/19 10:00 Active 2 mg IVPUSH Q2H PRN Naloxone [Narcan] Med 04/01/19 10:00 Active 0.1 mg IVPUSH Q5M PRN Ondansetron [Zofran] Med 04/01/19 10:00 Active 4 mg IVPUSH Q6H PRN Rosuvastatin [Crestor] Med 04/02/19 09:00 Active 5 mg PO DAILY Sennosides [Senna] Med 04/01/19 10:00 Active 8.6 mg PO BID PRN Sertraline [Zoloft] Med 04/02/19 09:00 Active 50 mg PO DAILY ceFAZolin [Ancef] 2 gm Med 04/01/19 16:00 Active Premix Bag 1 bag IV Q8H oxyCODONE Med 04/02/19 08:27 Ordered 5 - 10 mg PO Q4H PRN Pulse Oximetry Continuous Monitoring [OM.PC] Routine Oth 04/01/19 08:39 Active Medication Orders Albuterol/Ipratropium (Duoneb 3.0-0.5 Mg/3 Ml) 3 ml NEB Q6HRRT PRN PRN Reason: SOB/Wheezing Allopurinol (Zyloprim) 100 mg PO DAILY [facility] Aspirin (Ecotrin) 325 mg PO DAILY [facility] Benzocaine/Menthol (Cepacol Sore Throat) 1 lozenge MUCMEM Q6H PRN PRN Reason: Cough/sore throat Last Admin: 04/01/19 15:15 Dose: 1 lozenge Bisacodyl (Dulcolax) 5 mg PO DAILY PRN PRN Reason: Constipation Calcium Carbonate/Glycine (Calcium Carbonate) 1,200 mg PO DAILY [facility] Cholecalciferol (Vitamin D3) 5,000 unit PO DAILY [facility] Clopidogrel Bisulfate (Plavix) 75 mg PO DAILY [facility] Cyclobenzaprine HCl (Flexeril) 5 mg PO BID PRN PRN Reason: Spasms Last Admin: 04/01/19 23:27 Dose: 5 mg Docusate Sodium (Colace) 100 mg PO BID [facility] Last Admin: 04/01/19 21:24 Dose: 100 mg Famotidine (Pepcid) 20 mg PO Q12H [facility] Last Admin: 04/01/19 21:24 Dose: 20 mg Insulin Glargine (Lantus) 46 unit SUBCUT BEDTIME [facility] Last Admin: 04/01/19 21:24 Dose: 46 units Insulin Human Lispro (Humalog) 0 unit SUBCUT QIDACANDBED [facility]; Protocol Last Admin: 04/02/19 06:48 Dose: Not Given Admin: 04/01/19 21:36 Dose: Not Given Admin: 04/01/19 17:13 Dose: Loratadine (Claritin) 10 mg PO DAILY [facility] Magnesium Oxide (Magnesium Oxide) 400 mg PO DAILY [facility] Metoprolol Succinate (Toprol Xl) 50 mg PO DAILY [facility] Morphine Sulfate (Morphine) 2 mg IVPUSH Q2H PRN PRN Reason: Breakthrough Pain Last Admin: 04/02/19 07:05 Dose: 1 mg Naloxone HCl (Narcan) 0.1 mg IVPUSH Q5M PRN PRN Reason: Oversedation Ondansetron HCl (Zofran) 4 mg IVPUSH Q6H PRN PRN Reason: Nausea/Vomiting Oxycodone HCl (Oxycodone) 5 - 10 mg PO Q4H PRN PRN Reason: Pain Rosuvastatin Calcium (Crestor) 5 mg PO DAILY [facility] Senna (Senna) 8.6 mg PO BID PRN PRN Reason: Constipation Sertraline HCl (Zoloft) 50 mg PO DAILY [facility] - Assessment Assessment (Free Text/Narrative):: POD#1 - right reverse TSA - Plan Plan (Free Text/Narrative):: 1. Hgb 11.3. 2. Discharge to home today if cleared by Hospitalist service, nursing, therapies. 3. Outpatient therapy. 4. 325mg ASA and will resume Plavix use. 5. Follow-up at outpatient Clinic next week. The pt's case was discussed with Dr. Yo.
[2019-04-02] MEDS ORDERED: Clopidogrel 75 MG Tab PO SCH (09:00)
[2019-04-02] MEDS ORDERED: Allopurinol 100 MG Tab PO SCH (09:00)
[2019-04-02] MEDS ORDERED: Sertraline 50 MG Tab PO SCH (09:00)
[2019-04-02] MEDS ORDERED: Calcium Carbonate 600 MG Tab PO SCH (09:00)
[2019-04-02] MEDS ORDERED: Cholecalciferol (Vitamin D3) 5,000 UNIT Tab PO SCH (09:00)
[2019-04-02] MEDS ORDERED: Loratadine 10 MG Tab PO SCH (09:00)
[2019-04-02] MEDS ORDERED: Aspirin 325 MG Tab.EC PO SCH (09:00)
[2019-04-02] MEDS ORDERED: Magnesium Oxide 400 MG Tab PO SCH (09:00)
[2019-04-02] MEDS ORDERED: Metoprolol Succinate 50 MG Tab.ER PO SCH (09:00)
[2019-04-02] MEDS ORDERED: Lisinopril 10 MG Tab PO SCH (09:00)
[2019-04-02] MEDS ORDERED: Rosuvastatin 10 MG Tab PO SCH (09:00)
--- NOTE | 2019-04-02 09:16 | PCM48HPAN ---
Post Anesthesia Note - EVALUATION WITHIN 48HRS OF ANESTHETIC Vital Signs in Normal Range: Yes Patient Participated in Evaluation: Yes Respiratory Function Stable: Yes Airway Patent: Yes Cardiovascular Function Stable: Yes Hydration Status Stable: Yes Pain Control Satisfactory: Yes (sitting at side of bed. complaints of pain) Nausea and Vomiting Control Satisfactory: Yes Mental Status Recovered: Yes Vital Signs: Last Vital Signs Temp 98.6 F 04/02/19 03:42 Pulse 68 04/02/19 03:42 Resp 16 04/02/19 03:42 BP 126/67 04/02/19 03:42 Pulse Ox 98 04/02/19 05:42
[2019-04-02] MEDS: ceFAZolin 2 GM in Premix Bag 1 BAG IV SCH (09:20)
[2019-04-02] MEDS: Famotidine 20 MG Tab PO SCH (09:27)
[2019-04-02] MEDS: Docusate Sodium 100 MG Cap PO SCH (09:28)
[2019-04-02 12:01] VITALS: BP 154/77; PULSE 73
[2019-04-02] MEDS: Cyclobenzaprine 10 MG Tab PO PRN (12:23)
--- NOTE | 2019-04-02 14:46 | PCM.DCSUM1 ---
Discharge Summary - Hospital Course Brief History: Melanie is a 68 yo female who underwent right reverse TSA with Dr. Yo on 04-06-2019. The procedure was completed under general anesthesia with regional block. The pt tolerated the procedure well and was admitted to the Medical-Surgical Unit. Medical management was provided by the Hospitalist service. The pt's Hospital course was uneventful. The pt's Hgb on POD#1 was 11.3. On POD#1, 325mg ASA daily was initiated for VTE prophylaxis and the pt resumed use of Plavix. SCDs and TEDs were also ordered. A Mepilex dressing was placed at the incision site at the time of surgery and remained clean and dry. The pt participated in P.T. and O.T. and progressed well. On POD#1, the pt was deemed appropriate to discharge to home with her family. - Discharge Data Discharge Date: 04/02/19 Discharge Disposition: Home, Self-Care 01 Condition: Good - Referral to Home Health Primary Care Physician: Kobi Parrish MD - Patient Summary/Data Consults: Consultations 04/01/19 06:39 OT Evaluation and Treatment [CONS] Routine PT Evaluation and Treatment [CONS] Routine 04/01/19 06:40 Consult to Physician [CONS] Routine 04/01/19 14:33 Consult to Respiratory Therapy [Respiratory Care Assess and Treatment] [CONS] Routine - Patient Instructions Diet: Usual Diet as Tolerated Activity: Apply Ice, As Tolerated, Elevate Extremity Activity, Other: No forceful use of the surgical limb. Driving: Do Not Drive Showering/Bathing: May Shower Wound/Incision Care: Keep Operative Site/Wound Site Clean and Dry, Do NOT Change Dressing Notify Provider of: Fever, Increased Pain, Swelling and Redness, Drainage, Nausea and/or Vomiting Other/Special Instructions: Please get up and moving around EVERY HOUR while awake. This helps to prevent blood clots. Please have help with mobility as needed. Take a short walk in your home every hour while awake. Please take 325mg Aspirin daily. The aspirin is being used for blood clot prevention and not for pain management so please do not miss a dose of the medication. You could use a medication like Pepcid and a medication like Prilosec or Nexium to protect your stomach while you are using the aspirin. At home, please complete the exercises that you learned during the Hospital stay. Schedule for physical or occupational therapy. Use the pain medication as needed. The medication may cause drowsiness and constipation. Contact your primary care provider for instructions if you are constipated. You may use a stool softener like docusate sodium or Colace 100mg twice daily and/or a laxative like Miralax daily for constipation. Increase your water and fiber intake while you are using the pain medication. Discontinue use of the pain medication as soon as able. Please do not use other medications that may cause drowsiness (other pain medications, anxiety pills, cold medications, sleeping pills, etc) while using the prescription pain medication. Do not use alcohol while using the pain medication. Wear the VEL hose during the day and you may remove these at night. Elevate the limb to decrease swelling. Place ice to the area often. Place a towel between your skin and the blue pad. Use the incentive spirometer often. Take deep breaths throughout the day. Please keep the dressing in place until follow-up. Notify the Clinic if the dressing becomes saturated. Increase your protein intake while you are healing. Please closely monitor your blood sugars and notify your primary care provider with abnormal values. Elevated blood sugars increases the risk of infection. Call the Clinic with questions or concerns - [phone]. - Discharge Plan *PRESCRIPTION DRUG MONITORING PROGRAM REVIEWED*: No *COPY OF PRESCRIPTION DRUG MONITORING REPORT IN PATIENT MERCEDES: No Prescriptions/Med Rec: Aspirin [Ecotrin EC] 325 mg PO DAILY #40 tab.ec Cyclobenzaprine [Flexeril] 5 mg PO BID PRN #20 tablet PRN Reason: Spasms oxyCODONE 5 - 10 mg PO Q4H PRN #60 tablet PRN Reason: Pain Home Medications: Home Meds Albuterol Sulfate [Proair Respiclick] 2 puff IH Q6H PRN 10/15/18 [History] Allopurinol [Zyloprim] 100 mg PO DAILY 10/15/18 [History] Calcium Carbonate [Calcium] 1,200 mg PO DAILY 10/15/18 [History] Clopidogrel [Plavix] 75 mg PO DAILY 10/15/18 [History] Fexofenadine [Alejandra] 180 mg PO DAILY 10/15/18 [History] Insulin Glargine,Hum.Rec.Anlog [Mili Lyons] 58 unit SQ BEDTIME 10/15/18 [ History] Metoprolol Succinate [Toprol XL 50mg] 50 mg PO DAILY 10/15/18 [History] Quinapril [Accupril] 20 mg PO DAILY 10/15/18 [History] Rosuvastatin [Crestor] 5 mg PO DAILY 10/15/18 [History] Saxagliptin HCl [Onglyza] 5 mg PO DAILY 10/15/18 [History] Sertraline [Zoloft] 50 mg PO DAILY 10/15/18 [History] metFORMIN [Glucophage] 1,000 mg PO BIDMEALS 10/15/18 [History] Magnesium Oxide [Magnesium] 400 mg PO DAILY 12/31/18 [History] Cholecalciferol (Vitamin D3) [Vitamin D3] 5,000 unit PO DAILY 03/27/19 [History] Aspirin [Ecotrin EC] 325 mg PO DAILY #40 tab.ec 04/02/19 [Rx] Bisacodyl [Dulcolax] 5 mg PO DAILY PRN tablet 04/02/19 [Rx] Cyclobenzaprine [Flexeril] 5 mg PO BID PRN #20 tablet 04/02/19 [Rx] Docusate Sodium [Colace] 100 mg PO BID cap 04/02/19 [Rx] Famotidine [Pepcid] 20 mg PO Q12H tablet 04/02/19 [Rx] Sennosides [Senna] 8.6 mg PO BID PRN tablet 04/02/19 [Rx] oxyCODONE 5 - 10 mg PO Q4H PRN #60 tablet 04/02/19 [Rx] Referrals: Samantha Daniel PA-C [Physician Assistant Finance Director] - (1. Follow-up with Samantha Daniel PA-C on Wednesday, April 10, 2019 at 12:45pm. 2. Follow-up with Samantha Daniel PA-C on Wednesday, April 17, 2019 at 12:15pm. 3. Follow-up with Samantha Daniel PA-C on Sunday, May 12, 2019 at 10:30am.) - Discharge Summary/Plan Comment DC Time >30 min.: No - Patient Data Vitals - Most Recent: Last Vital Signs Temp 97.9 F 04/02/19 11:35 Pulse 73 04/02/19 11:35 Resp 16 04/02/19 11:35 BP 154/77 H 04/02/19 11:35 Pulse Ox 92 L 04/02/19 11:35 Weight - Most Recent: 261 lb 12.8 oz I&O - Last 24 hours: Intake & Output 04/01/19 04/02/19 04/02/19 22:59 06:59 14:59 Intake Total 1770 750 0 Output Total 300 Balance 1770 450 0 Lab Results - Last 24 hrs: Laboratory Results - last 24 hr 04/01/19 04/01/19 04/01/19 Range/Units 12:12 16:48 20:57 WBC (3.98-10.04) K/mm3 RBC (3.98-5.22) M/mm3 Hgb (11.2-15.7) gm/dl Hct (34.1-44.9) % MCV (79.4-94.8) fl MCH (25.6-32.2) pg MCHC (32.2-35.5) g/dl RDW Std Deviation (36.4-46.3) fL Plt Count (182-369) K/mm3 MPV (9.4-12.3) fl Sodium (136-145) mEq/L Potassium (3.5-5.1) mEq/L Chloride (98-107) mEq/L Carbon Dioxide (21-32) mEq/L Anion Gap (5-15) BUN (7-18) mg/dL Creatinine (0.55-1.02) mg/dL Est Cr Clr Drug Dosing mL/min Estimated GFR (MDRD) (>60) mL/min BUN/Creatinine Ratio (14-18) Glucose (80-115) mg/dL POC Glucose 127 H 116 H 138 H (80-115) mg/dL Calcium (8.5-10.1) mg/dL Total Bilirubin (0.2-1.0) mg/dL AST (15-37) U/L ALT (14-59) U/L Alkaline Phosphatase (46-116) U/L Total Protein (6.4-8.2) g/dl Albumin (3.4-5.0) g/dl Globulin gm/dL Albumin/Globulin Ratio (1-2) 04/02/19 04/02/19 04/02/19 Range/Units 05:24 05:24 06:32 WBC 10.66 H (3.98-10.04) K/mm3 RBC 4.04 (3.98-5.22) M/mm3 Hgb 11.3 D (11.2-15.7) gm/dl Hct 35.2 (34.1-44.9) % MCV 87.1 (79.4-94.8) fl MCH 28.0 (25.6-32.2) pg MCHC 32.1 L (32.2-35.5) g/dl RDW Std Deviation 46.4 H (36.4-46.3) fL Plt Count 195 (182-369) K/mm3 MPV 11.1 (9.4-12.3) fl Sodium 136 (136-145) mEq/L Potassium 3.7 (3.5-5.1) mEq/L Chloride 102 (98-107) mEq/L Carbon Dioxide 25 (21-32) mEq/L Anion Gap 12.7 (5-15) BUN 15 (7-18) mg/dL Creatinine 1.0 (0.55-1.02) mg/dL Est Cr Clr Drug Dosing 50.41 mL/min Estimated GFR (MDRD) 55 (>60) mL/min BUN/Creatinine Ratio 15.0 (14-18) Glucose 135 H (80-115) mg/dL POC Glucose 144 H (80-115) mg/dL Calcium 8.0 L (8.5-10.1) mg/dL Total Bilirubin 0.5 (0.2-1.0) mg/dL AST 23 (15-37) U/L ALT 19 (14-59) U/L Alkaline Phosphatase 44 L (46-116) U/L Total Protein 6.2 L (6.4-8.2) g/dl Albumin 3.1 L (3.4-5.0) g/dl Globulin 3.1 gm/dL Albumin/Globulin Ratio 1.0 (1-2) 04/02/19 Range/Units 11:37 WBC (3.98-10.04) K/mm3 RBC (3.98-5.22) M/mm3 Hgb (11.2-15.7) gm/dl Hct (34.1-44.9) % MCV (79.4-94.8) fl MCH (25.6-32.2) pg MCHC (32.2-35.5) g/dl RDW Std Deviation (36.4-46.3) fL Plt Count (182-369) K/mm3 MPV (9.4-12.3) fl Sodium (136-145) mEq/L Potassium (3.5-5.1) mEq/L Chloride (98-107) mEq/L Carbon Dioxide (21-32) mEq/L Anion Gap (5-15) BUN (7-18) mg/dL Creatinine (0.55-1.02) mg/dL Est Cr Clr Drug Dosing mL/min Estimated GFR (MDRD) (>60) mL/min BUN/Creatinine Ratio (14-18) Glucose (80-115) mg/dL POC Glucose 160 H (80-115) mg/dL Calcium (8.5-10.1) mg/dL Total Bilirubin (0.2-1.0) mg/dL AST (15-37) U/L ALT (14-59) U/L Alkaline Phosphatase (46-116) U/L Total Protein (6.4-8.2) g/dl Albumin (3.4-5.0) g/dl Globulin gm/dL Albumin/Globulin Ratio (1-2) Med Orders - Current: Current Medications Albuterol/Ipratropium (Duoneb 3.0-0.5 Mg/3 Ml) 3 ml NEB Q6HRRT PRN PRN Reason: SOB/Wheezing Allopurinol (Zyloprim) 100 mg PO DAILY [facility] Last Admin: 04/02/19 09:26 Dose: 100 mg Aspirin (Ecotrin) 325 mg PO DAILY [facility] Last Admin: 04/02/19 09:28 Dose: 325 mg Benzocaine/Menthol (Cepacol Sore Throat) 1 lozenge MUCMEM Q6H PRN PRN Reason: Cough/sore throat Last Admin: 04/01/19 15:15 Dose: 1 lozenge Bisacodyl (Dulcolax) 5 mg PO DAILY PRN PRN Reason: Constipation Calcium Carbonate/Glycine (Calcium Carbonate) 1,200 mg PO DAILY [facility] Last Admin: 04/02/19 09:23 Dose: 1,200 mg Cholecalciferol (Vitamin D3) 5,000 unit PO DAILY [facility] Last Admin: 04/02/19 09:27 Dose: 5,000 unit Clopidogrel Bisulfate (Plavix) 75 mg PO DAILY [facility] Last Admin: 04/02/19 09:30 Dose: 75 mg Cyclobenzaprine HCl (Flexeril) 5 mg PO BID PRN PRN Reason: Spasms Last Admin: 04/02/19 12:23 Dose: 5 mg Docusate Sodium (Colace) 100 mg PO BID [facility] Last Admin: 04/02/19 09:28 Dose: 100 mg Famotidine (Pepcid) 20 mg PO Q12H [facility] Last Admin: 04/02/19 09:27 Dose: 20 mg Insulin Glargine (Lantus) 46 unit SUBCUT BEDTIME [facility] Last Admin: 04/01/19 21:24 Dose: 46 units Insulin Human Lispro (Humalog) 0 unit SUBCUT QIDACANDBED [facility]; Protocol Last Admin: 04/02/19 12:25 Dose: Not Given Loratadine (Claritin) 10 mg PO DAILY [facility] Last Admin: 04/02/19 09:30 Dose: 10 mg Magnesium Oxide (Magnesium Oxide) 400 mg PO DAILY [facility] Last Admin: 04/02/19 09:25 Dose: 400 mg Metoprolol Succinate (Toprol Xl) 50 mg PO DAILY [facility] Last Admin: 04/02/19 09:29 Dose: 50 mg Morphine Sulfate (Morphine) 2 mg IVPUSH Q2H PRN PRN Reason: Breakthrough Pain Last Admin: 04/02/19 07:05 Dose: 1 mg Naloxone HCl (Narcan) 0.1 mg IVPUSH Q5M PRN PRN Reason: Oversedation Ondansetron HCl (Zofran) 4 mg IVPUSH Q6H PRN PRN Reason: Nausea/Vomiting Oxycodone HCl (Oxycodone) 5 - 10 mg PO Q4H PRN PRN Reason: Pain Last Admin: 04/02/19 09:24 Dose: 10 mg Rosuvastatin Calcium (Crestor) 5 mg PO DAILY [facility] Last Admin: 04/02/19 09:25 Dose: 5 mg Senna (Senna) 8.6 mg PO BID PRN PRN Reason: Constipation Sertraline HCl (Zoloft) 50 mg PO DAILY [facility] Last Admin: 04/02/19 09:26 Dose: 50 mg Discontinued Medications Albuterol (Proventil Neb Soln) 2.5 mg NEB ONETIME ONE Stop: 03/30/19 00:02 Albuterol (Proventil Neb Soln) 2.5 mg NEB ONETIME ONE Stop: 04/01/19 06:52 Last Admin: 04/01/19 06:56 Dose: 2.5 mg Albuterol (Proventil Neb Soln) 2.5 mg NEB ONETIME PRN PRN Reason: bronchodilation Stop: 04/01/19 11:00 Last Admin: 04/01/19 10:37 Dose: 2.5 mg Albuterol (Proventil Hfa) 0 gm INH Q6H PRN PRN Reason: Wheezing Bupivacaine HCl (Sensorcaine-Mpf 0.25%) Confirm Administered Dose 30 ml .ROUTE .STK-MED ONE Stop: 04/01/19 07:03 Cefazolin Sodium (Ancef) Confirm Administered Dose 2 gm .ROUTE .STK-MED ONE Stop: 04/01/19 06:28 Last Admin: 04/01/19 09:29 Dose: 2 gm Cefazolin Sodium (Ancef) Confirm Administered Dose 2 gm .ROUTE .STK-MED ONE Stop: 04/01/19 07:02 Epinephrine HCl (Adrenalin) Confirm Administered Dose 1 mg .ROUTE .STK-MED ONE Stop: 04/01/19 06:16 Fentanyl (Sublimaze) Confirm Administered Dose 250 mcg .ROUTE .STK-MED ONE Stop: 04/01/19 06:29 Fentanyl (Sublimaze) 50 mcg IVPUSH Q5M PRN PRN Reason: Pain Stop: 04/01/19 11:00 Glycopyrrolate (Robinul) Confirm Administered Dose 0.2 mg .ROUTE .STK-MED ONE Stop: 04/01/19 08:51 Glycopyrrolate () Confirm Administered Dose 1 mg .ROUTE .STK-MED ONE Stop: 04/01/19 08:52 Haloperidol Lactate (Haldol) 1 mg IVPUSH ONETIME PRN PRN Reason: PERSISTENT NAUSEA Stop: 04/01/19 11:00 Hydromorphone HCl (Dilaudid) 0.5 mg IVPUSH Q15M PRN PRN Reason: Pain (severe 7-10) Stop: 04/01/19 11:00 Lactated Ringer's (Ringers, Lactated) 1,000 mls @ 125 mls/hr IV ASDIRECTED NAZIA Stop: 03/30/19 23:00 Lidocaine HCl (Xylocaine-Mpf 1%) Confirm Administered Dose 2 mls @ as directed .ROUTE .STK-MED ONE Stop: 04/01/19 06:16 Lidocaine HCl (Xylocaine-Mpf 1%) Confirm Administered Dose 6 mls @ as directed .ROUTE .STK-MED ONE Stop: 04/01/19 06:28 Lactated Ringer's (Ringers, Lactated) Confirm Administered Dose 1,000 mls @ as directed .ROUTE .STK-MED ONE Stop: 04/01/19 06:28 Cefazolin Sodium/Dextrose 2 gm (/ Premix) 50 mls @ 100 mls/hr IV Q8H [facility] Stop: 04/02/19 08:29 Last Admin: 04/02/19 09:20 Dose: 100 mls/hr Lactated Ringer's (Ringers, Lactated) 1,000 mls @ 125 mls/hr IV ASDIRECTED [facility] Stop: 04/01/19 23:00 Last Admin: 04/01/19 07:04 Dose: 125 mls/hr Lactated Ringer's (Ringers, Lactated) Confirm Administered Dose 1,000 mls @ as directed .ROUTE .ST-MED ONE Stop: 04/01/19 08:21 Phenylephrine HCl 1 mg/ Sodium (Chloride) 10.1 mls @ 1 mls/sec IV TITRATE [facility]; Protocol Stop: 04/01/19 11:00 Iodine (Iodine 2% Mild Tincture) Confirm Administered Dose 30 ml .ROUTE .STK- MED ONE Stop: 04/01/19 07:03 Last Admin: 04/01/19 09:26 Dose: 18 ml Ketorolac Tromethamine (Toradol) Confirm Administered Dose 30 mg .ROUTE .STK- MED ONE Stop: 04/01/19 06:28 Ketorolac Tromethamine (Toradol) 15 mg IVPUSH Q6H PRN PRN Reason: Pain Last Admin: 04/01/19 23:26 Dose: 15 mg Lidocaine/Sodium Bicarbonate (Buffered Lidocaine 1% In Ns 8.4%) 0.25 ml IDERM ONETIME PRN PRN Reason: Prior to IV Start Stop: 03/30/19 23:00 Lisinopril (Prinivil) 10 mg PO DAILY [facility] Midazolam HCl (Versed 1 Mg/Ml) Confirm Administered Dose 2 mg .ROUTE .STK-MED ONE Stop: 04/01/19 06:29 Midazolam HCl (Versed 1 Mg/Ml) 2 mg IVPUSH ONETIME ONE Stop: 04/01/19 10:25 Last Admin: 04/01/19 10:39 Dose: 1 mg Neostigmine Methylsulfate (Neostigmine) Confirm Administered Dose 5 mg .ROUTE .STK-MED ONE Stop: 04/01/19 08:52 Ondansetron HCl (Zofran) Confirm Administered Dose 4 mg .ROUTE .STK-MED ONE Stop: 04/01/19 06:28 Ondansetron HCl (Zofran) 4 mg IVPUSH ONETIME PRN PRN Reason: Nausea/Vomiting Stop: 04/01/19 11:00 Oxycodone HCl (Oxycodone) 5 - 10 mg PO Q6H PRN PRN Reason: Pain Last Admin: 04/02/19 03:42 Dose: 10 mg Phenylephrine HCl (Phenylephrine In Ns 100 Mcg/Ml) Confirm Administered Dose 1 mg .ROUTE .STK-MED ONE Stop: 04/01/19 08:20 Propofol (Diprivan 20 Ml) Confirm Administered Dose 200 mg .ROUTE .STK-MED ONE Stop: 04/01/19 06:28 Propofol (Diprivan 20 Ml) Confirm Administered Dose 200 mg .ROUTE .STK-MED ONE Stop: 04/01/19 07:56 Rocuronium [place] (Zemuron) Confirm Administered Dose 50 mg .ROUTE .STK-MED ONE Stop: 04/01/19 06:28 Ropivacaine (Naropin 0.5%) Confirm Administered Dose 30 ml .ROUTE .STK-MED ONE Stop: 04/01/19 06:16 Sodium Chloride (Saline Flush) 10 ml FLUSH ASDIRECTED PRN PRN Reason: Keep Vein Open Stop: 03/30/19 23:00 Tranexamic Acid (Cyklokapron) Confirm Administered Dose 1,000 mg .ROUTE .STK- MED ONE Stop: 04/01/19 07:02 Last Admin: 04/01/19 09:35 Dose: 1,000 mg Vancomycin HCl (Vancomycin) Confirm Administered Dose 1 gm .ROUTE .STK-MED ONE Stop: 04/01/19 07:02 Last Admin: 04/01/19 09:35 Dose: 1 gm
--- NOTE | 2019-04-06 11:45 | PCM.OPNOTE ---
- General Post-Op/Procedure Note Date of Surgery/Procedure: 04/01/19 Operative Procedure(s): right reverse total shoulder arthroplasty Pre Op Diagnosis: right shoulder rotator cuff tear arthropathy Post-Op Diagnosis: Same Anesthesia Technique: General ET Tube, Regional Block Primary Surgeon: Ck Yo Anesthesia Provider: Carmela Orozco Correspondence Section Supervisor: Samantha Daniel Correspondence Section Supervisor: Rita Natarajan EBL in mLs: 350 Complications: None Condition: Good Free Text/Narrative:: 7 stem 36+0 small baseplate +3 liner
--- NOTE | 2019-04-06 12:18 | OR ---
DATE OF OPERATION: 04/01/2019 SURGEON: Ck Yo MD OPERATION PERFORMED: Right reverse total shoulder arthroplasty. PREOPERATIVE DIAGNOSIS: Right shoulder rotator cuff tear arthropathy. POSTOPERATIVE DIAGNOSIS: Right shoulder rotator cuff tear arthropathy. ANESTHESIA: General endotracheal intubation with regional interscalene block. ANESTHESIA PROVIDER: Carmela Orozco CRNA ASSISTANTS: 1. Samantha Daniel PA-C. 2. Rita Natarajan LPN. ESTIMATED BLOOD LOSS: 350 mL. COMPLICATIONS: None. CONDITION: Stable. IMPLANTS: 1. Arthrex size 7 reverse arthroplasty stem, 135 degrees. 2. Arthrex size 36+ 0 Glenosphere. 3. Arthrex small glenoid baseplate. 4. Arthrex +3 liner. DESCRIPTION OF PROCEDURE: The patient was identified in the preop holding area. Proper site was marked and identified by the surgeon. The patient was taken back to the operating theater where, after adequate anesthesia, the patient's right upper extremity was sterilely prepped and draped in the usual sterile fashion. OR time-out was performed. The patient received 2 g of IV Ancef. At this time, a standard deltopectoral incision was made. This was taken down to the cephalic vein. The cephalic vein was identified and was ligated and then retracted laterally. The clavipectoral fascia was then incised. Conjoined tendon was retracted medially and the Fakuda retractor was placed in the subdeltoid space. There was a significant amount of subdeltoid adhesions from her previous surgery. A pectoralis tenodesis was then performed of the biceps tendon, and then an opening of the groove was done all the way back to the level of the glenoid, and the biceps tendon was resected. Peel down of the subscapularis tendon then was done. At this time, the humeral head was dislocated. The patient was noted to have a significant amount of scar tissue and a very tight shoulder at this time. A neck cut was then completed and found to be adequate. Attention was turned to the glenoid. Circumferential removal of the remaining labrum as well as remaining capsule was done. Again, it was noted that the patient had a large amount of scar tissues noted and did have a very tight shoulder. A guide pin was placed in a center-center position. The central reamer was then used for a 36 small glenoid baseplate and then the peripheral reamer for the small glenoid baseplate. This was found to be in adequate position. The small glenoid baseplate was then compressed with a central compression screw, and then inferior and superior locking screws were applied. Secondary to the patient's severe tight shoulder, I did use a 36+ 0 Glenosphere, and this was then impacted into place and the set screw was then tightened. Attention was turned to the humerus. Starting with the 5 broach, I was able to broach up to a size 7, which was found to be rotationally and vertically stable. The guide for the reamer was then placed centrally with no offset, and this was reamed in the proximal humerus. I did do trial components with +3. It showed good tension on both the conjoined tendon as well as deltoid. +6 showed over-tensioning with significant over-tensioning of the conjoined tendon with the +6. +3 had full range of motion throughout with no signs of instability. At this time, the trial components were removed. The size 7 stem with 135 degrees and a +3 liner were then impacted and constructed on the back table. This all-in-one was then impacted into the humerus, and the humerus was relocated on the Glenosphere. C- arm fluoroscopy showed all components to be in proper position. At this time, 1 L of dilute Betadine solution was irrigated through the shoulder along with 3 L of pulse lavage irrigation with Ancef. Topical tranexamic acid and vancomycin powder were applied. A #2 FiberWire was used for tagging of the deltopectoral interval. 2-0 Vicryl was used subcutaneously. Prineo was used for the skin. The patient tolerated the procedure well and was sent to the PACU in stable condition. MMODAL /[id number] MARGE
== END 2019-04-02 12:54 | disposition home or self-care (01) | DRG 483 ==
LOC: JD.MS 04-01 05:57
PROVIDERS: ADMIT Orthopaedic Surgery; ATTEND Orthopaedic Surgery
PROC: 0RRJ00Z Replacement of Right Shoulder Joint with Reverse Ball and Socket Synthetic Substitute, Open Approach (ICD-10-PCS; principal; 2019-04-01)
DX: M19.011 Primary osteoarthritis, right shoulder (principal); Z68.41 Body mass index [BMI] 40.0-44.9, adult; I50.1 Left ventricular failure, unspecified; E11.9 Type 2 diabetes mellitus without complications; F32.9 Major depressive disorder, single episode, unspecified; M10.9 Gout, unspecified; E78.2 Mixed hyperlipidemia; E66.9 Obesity, unspecified; M17.0 Bilateral primary osteoarthritis of knee; I11.0 Hypertensive heart disease with heart failure; J45.909 Unspecified asthma, uncomplicated; E78.00 Pure hypercholesterolemia, unspecified; R94.5 Abnormal results of liver function studies; M79.2 Neuralgia and neuritis, unspecified; G47.33 Obstructive sleep apnea (adult) (pediatric); R32 Unspecified urinary incontinence; J02.9 Acute pharyngitis, unspecified; Z79.84 Long term (current) use of oral hypoglycemic drugs; Z79.899 Other long term (current) drug therapy; Z88.0 Allergy status to penicillin; Z88.1 Allergy status to other antibiotic agents; Z88.6 Allergy status to analgesic agent; Z86.73 Personal history of transient ischemic attack (TIA), and cerebral infarction without residual deficits; Z79.01 Long term (current) use of anticoagulants; Z90.49 Acquired absence of other specified parts of digestive tract; Z96.653 Presence of artificial knee joint, bilateral
CPT/HCPCS: 01638; 36415; 64415; 73020-26-RT; 73020-RT; 76000; 76000-26; 80053; 82962; 85027; 87641; 94640; 94761; 94762; 97110-GP; 97116-GP; 97161-GP; 97165-GO; 97535-GO; A9270-GY; C1713; C1776; J0171; J0690; J1815-GY; J1885; J2001; J2250; J2270; J2370; J2405; J2704; J2710; J2795; J3010; J3370; J3490; J7120

== ENCOUNTER 2021-01-24 16:45 | Emergency (ER) | payer MEDICARE, MEDICAID ==
[2021-01-24] MEDS ORDERED: Sodium Chloride 0.9% 10 ML Syringe FLUSH PRN (17:10)
--- NOTE | 2021-01-24 17:19 | EDM.PDOC ---
ED HPI GENERAL MEDICAL PROBLEM - General Chief Complaint: Fever Stated Complaint: [facility] Time Seen by Provider: 01/24/21 16:55 Source of Information: Reports: Patient, RN Notes Reviewed History Limitations: Reports: No Limitations - History of Present Illness INITIAL COMMENTS - FREE TEXT/NARRATIVE: Patient is a 70-year-old female who is brought in by [facility] ambulance service for the evaluation of her shortness of breath and fever. Patient notes that she has been sick since around Saturday. States she has a history of asthma. She notes that she has been having issues with difficulty breathing again since Saturday, she was found to have a fever of 103 F via [facility], but recheck of her temperature in the ER does provide a temperature at around 97.8 F however her body feels much warmer than 97.8. States that she has never had COVID-19 as far she is aware, she did have her COVID-19 vaccine, the Pfizer version, finished sometime in June or July 2020. Patient does not think she could have been around anybody that has been sick. She is denying any productive cough, or urinary discomfort. Vitals are essentially stable however her O2 sats are on the low side of normal at around 90 to 91% on room air with no visible dyspnea appreciated. Patient also carries a history of diabetes, blood pressure issues, and morbid obesity. Bilateral Anterior Chest Pain Score (Numeric/FACES): 3 - Related Data Allergies Allergy/AdvReac Type Severity Reaction Status Date / Time ampicillin sodium Allergy Rash Verified 01/24/21 17:12 [From Unasyn] diphenhydramine HCl Allergy Itching Verified 01/24/21 17:12 [From Benadryl] Penicillins Allergy Rash Verified 01/24/21 17:12 sulbactam sodium Allergy Rash Verified 01/24/21 17:12 [From Unasyn] acetaminophen [From Tylenol] AdvReac Hallucinati Verified 01/24/21 17:12 ons Home Meds: Home Meds Albuterol Sulfate [Proair Respiclick] 2 puff IH Q6H PRN 10/15/18 [History] Calcium Carbonate [Calcium] 1,200 mg PO DAILY 10/15/18 [History] Clopidogrel [Plavix] 75 mg PO DAILY 10/15/18 [History] Fexofenadine [Alejandra] 180 mg PO DAILY 10/15/18 [History] Insulin Glargine,Hum.Rec.Anlog [Toushayy Solostar] 58 unit SQ BEDTIME 10/15/18 [History] Metoprolol Succinate [Toprol XL 50mg] 50 mg PO DAILY 10/15/18 [History] Quinapril [Accupril] 20 mg PO DAILY 10/15/18 [History] Rosuvastatin [Crestor] 5 mg PO DAILY 10/15/18 [History] Saxagliptin HCl [Onglyza] 5 mg PO DAILY 10/15/18 [History] Sertraline [Zoloft] 100 mg PO DAILY 10/15/18 [History] metFORMIN [Glucophage] 500 mg PO BIDMEALS 10/15/18 [History] Magnesium Oxide [Magnesium] 400 mg PO DAILY 12/31/18 [History] Cholecalciferol (Vitamin D3) [Vitamin D3] 5,000 unit PO DAILY 03/27/19 [History] Past Medical History HEENT History: Reports: Allergic Rhinitis, Impaired Vision, Sinusitis Other HEENT History: Tonsillitis Cardiovascular History: Reports: High Cholesterol, Hypertension Respiratory History: Reports: Asthma, Bronchitis, Recurrent Other Respiratory History: Deviated septum per patient and family Gastrointestinal History: Reports: Other (See Below) Other Gastrointestinal History: Gall bladder disease, elevated LFTs Genitourinary History: Reports: Urinary Incontinence Other Genitourinary History: Dysuria, urinary frequency, acute cystitis [employer] History: Reports: Musculoskeletal History: Reports: Gout, Osteoarthritis Other Musculoskeletal History: Bursitis, rotator cuff injury, right shoulder pain Neurological History: Reports: CVA, TIA Other Neuro History: Neuralgia, cerebrovascular disease Psychiatric History: Reports: Depression Endocrine/Metabolic History: Reports: Diabetes, Type II, Obesity/BMI 30+ Dermatologic History: Reports: Cellulitis Other Dermatologic History: Cellulitis and abscess of foot, skin lesions - Past Surgical History HEENT Surgical History: Reports: Adenoidectomy, Cataract Surgery, Tonsillectomy GI Surgical History: Reports: Appendectomy, Cholecystectomy, Colonoscopy Female Surgical History: Reports: Section, Tubal Ligation Musculoskeletal Surgical History: Reports: Carpal Tunnel, Knee Replacement, Shoulder Surgery Other Musculoskeletal Surgeries/Procedures:: Bilateral total knee arthroplasty, bilateral rotator cuff repair Social & Family History - Caffeine Use Caffeine Use: Reports: Coffee, Tea Other Caffeine Use: Decaf coffee and herbal tea. - Living Situation & Occupation Living situation: Reports: , with Family (Daughter + her family) Occupation: Retired ED ROS GENERAL - Review of Systems Review Of Systems: Comprehensive ROS is negative, except as noted in HPI. ED EXAM, GENERAL - Physical Exam Exam: See Below Exam Limited By: No Limitations General Appearance: Alert, WD/WN, No Apparent Distress Respiratory/Chest: No Respiratory Distress, Lungs Clear, No Accessory Muscle Use, Chest Non-Tender, Decreased Breath Sounds (diffuse diminished BS bilaterally) Cardiovascular: Normal Peripheral Pulses, Regular Rate, Rhythm, No Edema Extremities: Normal Inspection, Normal Capillary Refill Neurological: Alert, Oriented, Normal Cognition, No Motor/Sensory Deficits Psychiatric: Normal Affect, Normal Mood Skin Exam: Warm, Dry, Intact, Normal Color, No Rash #1 Interpretation EKG Date: 01/24/21 Time: 16:50 Rhythm: NSR Rate (Beats/Min): 80 [place]: Normal P-Wave: Present QRS: Normal ST-T: Normal QT: Normal Comparison: No Change (compared from 07/05/18) EKG Interpretation Comments: No obvious ischemia or acute ST changes noted, reviewed by myself and Dr. Santos. He does appreciate Q waves in leads III and aVF. Course - Vital Signs Last Recorded V/S: Last Vital Signs Temp 97.2 F 01/24/21 18:07 Pulse 80 01/24/21 18:07 Resp 18 01/24/21 18:07 BP 128/60 01/24/21 18:07 Pulse Ox 92 L 01/24/21 18:07 - Orders/Labs/Meds Orders: Active Orders 24 hr Category Date Time Status Peripheral IV Care [RC] . DIRECTED Care 01/24/21 17:11 Active UA W/MICROSCOPIC [URIN] Stat Lab 01/24/21 17:11 Ordered Sodium Chloride 0.9% [Saline Flush] Med 01/24/21 17:10 Active 10 ml FLUSH ASDIRECTED PRN Isolation [COMM] Routine Oth 01/24/21 17:13 Ordered Peripheral IV Insertion Adult [OM.PC] Routine Oth 01/24/21 17:10 Ordered Medication Orders Sodium Chloride (Sodium Chloride 0.9% 10 Ml Syringe) 10 ml FLUSH ASDIRECTED PRN PRN Reason: Keep Vein Open Last Admin: 01/24/21 18:19 Dose: 10 ml Documented by: ADY Labs: Laboratory Tests 01/24/21 01/24/21 01/24/21 Range/Units 17:05 17:05 17:05 WBC 4.74 (3.98-10.04) K/mm3 RBC 4.45 (3.98-5.22) M/mm3 Hgb 12.1 (11.2-15.7) gm/dl Hct 38.4 (34.1-44.9) % MCV 86.3 (79.4-94.8) fl MCH 27.2 (25.6-32.2) pg MCHC 31.5 L (32.2-35.5) g/dl RDW Std Deviation 51.3 H (36.4-46.3) fL Plt Count 144 L (182-369) K/mm3 MPV 11.0 (9.4-12.3) fl Neut % (Auto) 72.4 H (34.0-71.1) % Lymph % (Auto) 17.1 L (19.3-51.7) % Ashe % (Auto) 9.7 (4.7-12.5) % Eos % (Auto) 0.4 L (0.7-5.8) Baso % (Auto) 0.2 (0.1-1.2) % Neut # (Auto) 3.43 (1.56-6.13) K/mm3 Lymph # (Auto) 0.81 L (1.18-3.74) K/mm3 Ashe # (Auto) 0.46 H (0.24-0.36) K/mm3 Eos # (Auto) 0.02 L (0.04-0.36) K/mm3 Baso # (Auto) 0.01 (0.01-0.08) K/mm3 PT 12.2 H (9.7-12.0) SECONDS INR 1.14 APTT 33.9 H (21.7-31.4) SECONDS D-Dimer, Quantitative 0.67 H (0.19-0.50) mg/L VBG pH (7.30-7.40) VBG pCO2 (41-51) mmHg VBG pO2 (40-80) mmHG VBG HCO3 (22-26) meq/L VBG O2 Saturation VBG Base Excess (-4.0-2.0) O2 Delivery Device Sodium (136-145) mEq/L Potassium (3.5-5.1) mEq/L Chloride (98-107) mEq/L Carbon Dioxide (21-32) mEq/L Anion Gap (5-15) BUN (7-18) mg/dL Creatinine (0.55-1.02) mg/dL Est Cr Clr Drug Dosing mL/min Estimated GFR (MDRD) (>60) mL/min BUN/Creatinine Ratio (14-18) Glucose (70-99) mg/dL Calcium (8.5-10.1) mg/dL Magnesium (1.8-2.4) mg/dL Ferritin (8-252) ng/ml Total Bilirubin (0.2-1.0) mg/dL AST (15-37) U/L ALT (14-59) U/L Alkaline Phosphatase (46-116) U/L Troponin I (0.00-0.056) ng/mL C-Reactive Protein 2.1 H* (<1.0) mg/dL NT-Pro-B Natriuret Pep (0-125) pg/mL Total Protein (6.4-8.2) g/dl Albumin (3.4-5.0) g/dl Globulin gm/dL Albumin/Globulin Ratio (1-2) SARS-CoV-2 RNA (RADHA) (NEGATIVE) 01/24/21 01/24/21 01/24/21 Range/Units 17:05 17:05 17:05 WBC (3.98-10.04) K/mm3 RBC (3.98-5.22) M/mm3 Hgb (11.2-15.7) gm/dl Hct (34.1-44.9) % MCV (79.4-94.8) fl MCH (25.6-32.2) pg MCHC (32.2-35.5) g/dl RDW Std Deviation (36.4-46.3) fL Plt Count (182-369) K/mm3 MPV (9.4-12.3) fl Neut % (Auto) (34.0-71.1) % Lymph % (Auto) (19.3-51.7) % Ashe % (Auto) (4.7-12.5) % Eos % (Auto) (0.7-5.8) Baso % (Auto) (0.1-1.2) % Neut # (Auto) (1.56-6.13) K/mm3 Lymph # (Auto) (1.18-3.74) K/mm3 Ashe # (Auto) (0.24-0.36) K/mm3 Eos # (Auto) (0.04-0.36) K/mm3 Baso # (Auto) (0.01-0.08) K/mm3 PT (9.7-12.0) SECONDS INR APTT (21.7-31.4) SECONDS D-Dimer, Quantitative (0.19-0.50) mg/L VBG pH (7.30-7.40) VBG pCO2 (41-51) mmHg VBG pO2 (40-80) mmHG VBG HCO3 (22-26) meq/L VBG O2 Saturation VBG Base Excess (-4.0-2.0) O2 Delivery Device Sodium 141 (136-145) mEq/L Potassium 4.4 (3.5-5.1) mEq/L Chloride 104 (98-107) mEq/L Carbon Dioxide 26 (21-32) mEq/L Anion Gap 15.4 H (5-15) BUN 21 H (7-18) mg/dL Creatinine 1.1 H (0.55-1.02) mg/dL Est Cr Clr Drug Dosing 43.69 mL/min Estimated GFR (MDRD) 49 (>60) mL/min BUN/Creatinine Ratio 19.1 H (14-18) Glucose 121 H (70-99) mg/dL Calcium 8.3 L (8.5-10.1) mg/dL Magnesium 1.7 L (1.8-2.4) mg/dL Ferritin 166 (8-252) ng/ml Total Bilirubin 0.4 (0.2-1.0) mg/dL AST 68 H (15-37) U/L ALT 52 (14-59) U/L Alkaline Phosphatase 61 (46-116) U/L Troponin I < 0.017 (0.00-0.056) ng/mL C-Reactive Protein (<1.0) mg/dL NT-Pro-B Natriuret Pep 226 H (0-125) pg/mL Total Protein 6.9 (6.4-8.2) g/dl Albumin 3.6 (3.4-5.0) g/dl Globulin 3.3 gm/dL Albumin/Globulin Ratio 1.1 (1-2) SARS-CoV-2 RNA (RADHA) (NEGATIVE) 01/24/21 01/24/21 Range/Units 17:23 17:53 WBC (3.98-10.04) K/mm3 RBC (3.98-5.22) M/mm3 Hgb (11.2-15.7) gm/dl Hct (34.1-44.9) % MCV (79.4-94.8) fl MCH (25.6-32.2) pg MCHC (32.2-35.5) g/dl RDW Std Deviation (36.4-46.3) fL Plt Count (182-369) K/mm3 MPV (9.4-12.3) fl Neut % (Auto) (34.0-71.1) % Lymph % (Auto) (19.3-51.7) % Ashe % (Auto) (4.7-12.5) % Eos % (Auto) (0.7-5.8) Baso % (Auto) (0.1-1.2) % Neut # (Auto) (1.56-6.13) K/mm3 Lymph # (Auto) (1.18-3.74) K/mm3 Ashe # (Auto) (0.24-0.36) K/mm3 Eos # (Auto) (0.04-0.36) K/mm3 Baso # (Auto) (0.01-0.08) K/mm3 PT (9.7-12.0) SECONDS INR APTT (21.7-31.4) SECONDS D-Dimer, Quantitative (0.19-0.50) mg/L VBG pH 7.38 (7.30-7.40) VBG pCO2 41.9 (41-51) mmHg VBG pO2 35.0 L (40-80) mmHG VBG HCO3 24.3 (22-26) meq/L VBG O2 Saturation 69.6 VBG Base Excess -0.3 (-4.0-2.0) O2 Delivery Device Room air Sodium (136-145) mEq/L Potassium (3.5-5.1) mEq/L Chloride (98-107) mEq/L Carbon Dioxide (21-32) mEq/L Anion Gap (5-15) BUN (7-18) mg/dL Creatinine (0.55-1.02) mg/dL Est Cr Clr Drug Dosing mL/min Estimated GFR (MDRD) (>60) mL/min BUN/Creatinine Ratio (14-18) Glucose (70-99) mg/dL Calcium (8.5-10.1) mg/dL Magnesium (1.8-2.4) mg/dL Ferritin (8-252) ng/ml Total Bilirubin (0.2-1.0) mg/dL AST (15-37) U/L ALT (14-59) U/L Alkaline Phosphatase (46-116) U/L Troponin I (0.00-0.056) ng/mL C-Reactive Protein (<1.0) mg/dL NT-Pro-B Natriuret Pep (0-125) pg/mL Total Protein (6.4-8.2) g/dl Albumin (3.4-5.0) g/dl Globulin gm/dL Albumin/Globulin Ratio (1-2) SARS-CoV-2 RNA (RADHA) Positive H (NEGATIVE) Meds: Medications Generic Name Dose Route Start Last Admin Trade Name Freq PRN Reason Stop Dose Admin Sodium Chloride 10 ml 01/24/21 17:10 01/24/21 18:19 Sodium Chloride 0.9% 10 Ml Syringe FLUSH 10 ml ASDIRECTED PRN Administration Keep Vein Open Discontinued Medications Generic Name Dose Route Start Last Admin Trade Name Freq PRN Reason Stop Dose Admin Dexamethasone 6 mg 01/24/21 18:36 Dexamethasone 10 Mg/Ml Sdv IVPUSH 01/24/21 18:37 ONETIME ONE Remdesivir 200 mg/ Sodium 250 mls @ 250 mls/hr 01/24/21 18:37 Chloride IV 01/24/21 18:38 ONETIME ONE - Re-Assessments/Exams Free Text/Narrative Re-Assessment/Exam: 01/24/21 17:20 Patient presents to the ER for evaluation of her fever, shortness of breath, we will get a multitude of labs, along with a COVID-19 screen, chest x-ray, and urinalysis for initial management and evaluation. 01/24/21 17:49 Patient's labs have resulted preliminarily, CBC is essentially unremarkable, CMP is also essentially unremarkable, magnesium is slightly low at 1.7, D-dimer is elevated at 0.67, troponin undetectably low, CRP elevated at 2.1. 01/24/21 17:54 The patient's blood gas does demonstrate a venous sample, the respiratory therapist did place the patient on 2 L via nasal cannula at this time. Chest x- ray also demonstrates pretty poor inspiratory effort by my eye, but official radiology read is still pending. 01/24/21 18:55 Patient's COVID-19 screen did come back positive, I did talk with Dr. De La Torre, hospitalist at [facility], she does graciously accept the patient for transfer. Patient will be given 6 mg IV dexamethasone and remdesivir IV for initial management while in the ER, and patient will be transported to [facility] for ongoing medical management regarding her hypoxia and COVID- 19. Departure - Departure Time of Disposition: 18:55 Disposition: Home, Self-Care 01 Condition: Fair Clinical Impression: COVID-19, Hypoxia - Discharge Information Forms: ED Department Discharge Sepsis Event Note (ED) - Evaluation Sepsis Screening Result: No Definite Risk - Focused Exam Vital Signs: Vital Signs Temp Pulse Resp BP Pulse Ox 01/24/21 18:07 97.2 F 80 18 128/60 92 L 01/24/21 16:57 97.8 F 81 19 157/71 H 91 L - My Orders Last 24 Hours: My Active Orders 01/24/21 17:10 Sodium Chloride 0.9% [Saline Flush] 10 ml FLUSH ASDIRECTED PRN Peripheral IV Insertion Adult [OM.PC] Routine 01/24/21 17:11 Peripheral IV Care [RC] . DIRECTED UA W/MICROSCOPIC [URIN] Stat 01/24/21 17:13 Isolation [COMM] Routine - Assessment/Plan Last 24 Hours: My Active Orders 01/24/21 17:10 Sodium Chloride 0.9% [Saline Flush] 10 ml FLUSH ASDIRECTED PRN Peripheral IV Insertion Adult [OM.PC] Routine 01/24/21 17:11 Peripheral IV Care [RC] . DIRECTED UA W/MICROSCOPIC [URIN] Stat 01/24/21 17:13 Isolation [COMM] Routine
[2021-01-24] MEDS ORDERED: Dexamethasone 10 MG/ML SDV IVPUSH ONE (18:36)
[2021-01-24] MEDS ORDERED: REMDESIVIR 200 MG in Sodium Chloride 0.9% 250 ML IV ONE (18:37)
--- NOTE | 2021-01-24 18:50 | CR ---
Chest: Portable view of the chest was obtained. Comparison: Prior chest x-ray of 11/09/15. Heart size and mediastinum are stable. Lung markings are mildly increased which are felt to be technique related. No acute parenchymal change is otherwise seen. Right shoulder prosthesis is noted. Degenerative spurring is partially seen within the spine. Impression: 1. Findings as noted above. 2. Nothing acute is seen. Diagnostic code #2
[2021-01-24 20:30] VITALS: BP 138/74; PULSE 79
== END 2021-01-24 20:40 ==
LOC: JD.ED 16:45
DX: U07.1 COVID-19 (principal); R09.02 Hypoxemia; E78.00 Pure hypercholesterolemia, unspecified; I10 Essential (primary) hypertension; J45.909 Unspecified asthma, uncomplicated; M10.9 Gout, unspecified; E11.9 Type 2 diabetes mellitus without complications; E66.9 Obesity, unspecified; Z68.41 Body mass index [BMI] 40.0-44.9, adult; Z86.73 Personal history of transient ischemic attack (TIA), and cerebral infarction without residual deficits; Z88.1 Allergy status to other antibiotic agents; Z88.8 Allergy status to other drugs, medicaments and biological substances; Z88.0 Allergy status to penicillin; Z88.6 Allergy status to analgesic agent; Z79.02 Long term (current) use of antithrombotics/antiplatelets; Z79.4 Long term (current) use of insulin; Z79.899 Other long term (current) drug therapy
CPT/HCPCS: 36415; 71045; 80053; 82728; 82803; 83735; 83880; 84484; 85025; 85379; 85610; 85730; 86140; 93005; 96374; 99285; J1100; J7050; U0002; 93010; 99284

== ENCOUNTER 2021-02-06 14:17 | Inpatient (IN) | payer MEDICARE, MEDICAID ==
--- NOTE | 2021-02-06 15:47 | EDM.PDOC ---
ED HPI GENERAL MEDICAL PROBLEM - General Chief Complaint: Respiratory Problem Stated Complaint: SOB Time Seen by Provider: 02/06/21 15:09 Source of Information: Reports: Patient History Limitations: Reports: No Limitations - History of Present Illness INITIAL COMMENTS - FREE TEXT/NARRATIVE: 7-year-old female presents the emergency department with complaints of worsening shortness of breath and generalized weakness. Patient states that she tested positive for Covid on January 24, 2021 and was hospitalized in [place] as a result. She states she was discharged from the hospital on January 30, 2001 on oxygen at 5 L per nasal cannula. She states that on the day of discharge she felt pretty good however progressively has gotten more weak and short of breath since. She states that yesterday she was at home and needed to use the bathroom and states that she almost fell due to generalized weakness. She states that her appetite has been poor and she has not been eating or drinking much. She continues on oxygen at 5 L per nasal cannula. She states her friend then assisted her and moved her into her home to take care of her. She states that she has been eating or drinking since moving in with her friends and feels slightly better however still feels weak. She states the home health care nurse came to see her today and recommended she be seen in the emergency department. Of note, the patient has a BMI of 44.9, history of asthma and diabetes. - Related Data Allergies Allergy/AdvReac Type Severity Reaction Status Date / Time ampicillin sodium Allergy Rash Verified 02/06/21 14:50 [From Unasyn] diphenhydramine HCl Allergy Itching Verified 02/06/21 14:50 [From Benadryl] Penicillins Allergy Rash Verified 02/06/21 14:50 sulbactam sodium Allergy Rash Verified 02/06/21 14:50 [From Unasyn] acetaminophen [From Tylenol] AdvReac Hallucinati Verified 02/06/21 14:50 ons Home Meds: Home Meds Albuterol Sulfate [Proair Respiclick] 2 puff IH Q6H PRN 10/15/18 [History] Calcium Carbonate [Calcium] 1,200 mg PO DAILY 10/15/18 [History] Clopidogrel [Plavix] 75 mg PO DAILY 10/15/18 [History] Fexofenadine [Alejandra] 180 mg PO DAILY 10/15/18 [History] Insulin Glargine,Hum.Rec.Anlog [Mili Lyons] 58 unit SQ BEDTIME 10/15/18 [History] Metoprolol Succinate [Toprol XL 50mg] 50 mg PO DAILY 10/15/18 [History] Quinapril [Accupril] 20 mg PO DAILY 10/15/18 [History] Rosuvastatin [Crestor] 5 mg PO DAILY 10/15/18 [History] Saxagliptin HCl [Onglyza] 5 mg PO DAILY 10/15/18 [History] Sertraline [Zoloft] 100 mg PO DAILY 10/15/18 [History] metFORMIN [Glucophage] 500 mg PO BIDMEALS 10/15/18 [History] Magnesium Oxide [Magnesium] 400 mg PO DAILY 12/31/18 [History] Cholecalciferol (Vitamin D3) [Vitamin D3] 5,000 unit PO DAILY 03/27/19 [History] Past Medical History HEENT History: Reports: Allergic Rhinitis, Impaired Vision, Sinusitis Other HEENT History: Tonsillitis Cardiovascular History: Reports: High Cholesterol, Hypertension Respiratory History: Reports: Asthma, Bronchitis, Recurrent Other Respiratory History: Deviated septum per patient and family Gastrointestinal History: Reports: Other (See Below) Other Gastrointestinal History: Gall bladder disease, elevated LFTs Genitourinary History: Reports: Urinary Incontinence Other Genitourinary History: Dysuria, urinary frequency, acute cystitis [employer] History: Reports: Musculoskeletal History: Reports: Gout, Osteoarthritis Other Musculoskeletal History: Bursitis, rotator cuff injury, right shoulder pain Neurological History: Reports: CVA, TIA Other Neuro History: Neuralgia, cerebrovascular disease Psychiatric History: Reports: Depression Endocrine/Metabolic History: Reports: Diabetes, Type II, Obesity/BMI 30+ Dermatologic History: Reports: Cellulitis Other Dermatologic History: Cellulitis and abscess of foot, skin lesions - Infectious Disease History Infectious Disease History: Reports: Novel Coronavirus Social & Family History - Family History Family Medical History: No Pertinent Family History - Caffeine Use Caffeine Use: Reports: None Other Caffeine Use: Decaf coffee and herbal tea. - Living Situation & Occupation Living situation: Reports: , with Family (Daughter + her family) Occupation: Retired ED ROS GENERAL - Review of Systems Review Of Systems: Comprehensive ROS is negative, except as noted in HPI. ED EXAM, GENERAL - Physical Exam Exam: See Below Exam Limited By: No Limitations General Appearance: Alert, WD/WN, Moderate Distress Ears: Normal External Exam, Hearing Grossly Normal Nose: Normal Inspection Throat/Mouth: Normal Inspection, Normal Lips, Normal Voice, No Airway Compromise Head: Atraumatic Neck: Normal Inspection, Supple Respiratory/Chest: Lungs Clear, Normal Breath Sounds, No Accessory Muscle Use, Chest Non-Tender, Respiratory Distress (Mild), Decreased Breath Sounds Cardiovascular: Normal Peripheral Pulses, Regular Rate, Rhythm, No Edema, No Murmur Peripheral Pulses: 2+: Radial (L), Radial (R) GI/Abdominal: Normal Bowel Sounds, Soft, Non-Tender, No Distention (Female) Exam: Deferred Rectal (Female) Exam: Deferred Back Exam: Normal Inspection Extremities: Normal Inspection, Normal Range of Motion, Non-Tender, No Pedal Edema, Normal Capillary Refill Neurological: Alert, Oriented, Normal Cognition Psychiatric: Normal Affect, Normal Mood Skin Exam: Warm, Intact, Normal Color, No Rash, Diaphoretic Lymphatic: No Adenopathy #1 Interpretation EKG Date: 02/06/21 Time: 15:47 Rhythm: NSR Rate (Beats/Min): 80 [place]: Normal P-Wave: Present QRS: Normal ST-T: Normal QT: Normal EKG Interpretation Comments: Per Dr. Bob interpretation: Sinus rhythm at 80 bpm; frequent PVCstrigeminy; LVH pattern; decreased voltage in precordial leads; early R wave transition [id number] RVH; left atrial hypertrophyLAD (-17 degrees); Q waves 3 and aVFold inferior wall OR Course - Vital Signs Text/Narrative:: As stated above, patient presents with worsening generalized weakness, decreased appetite and shortness of breath since being discharged from the hospital with Covid on January 30, 2021. Upon assessment, the patient is dyspneic with rest. Speaking in a few word sentences. She denies any urinary symptoms. Lung sounds are clear in all [place] however slightly diminished. Will order a portable chest x-ray, EKG, CBC, CMP, magnesium, C-reactive protein, troponin, D-dimer and a proBNP. We will also get a urinalysis with micro and culture if indicated. Last Recorded V/S: Last Vital Signs Temp 97 F 02/06/21 14:38 Pulse 79 02/06/21 14:38 Resp 26 H 02/06/21 14:38 BP 119/36 L 02/06/21 14:38 Pulse Ox 92 L 02/06/21 14:38 - Orders/Labs/Meds Orders: Active Orders 24 hr Category Date Time Status CULTURE URINE [MREF] Stat Lab 02/06/21 16:15 Received Medication Orders Albuterol/Ipratropium (Albuterol/Ipratropium 3.0-0.5 Mg/3 Ml Neb Soln) 3 ml NEB Q4H PRN PRN Reason: Shortness Of Breath/wheezing Alogliptin Benzoate (Alogliptin 12.5 Mg Tab) 12.5 mg PO DAILY [facility] Cholecalciferol (Cholecalciferol (Vitamin D3) 5,000 Unit Tab) 5,000 unit PO DAILY [facility] Clopidogrel Bisulfate (Clopidogrel 75 Mg Tab) 75 mg PO DAILY [facility] Docusate Sodium (Docusate Sodium 100 Mg Cap) 100 mg PO BID PRN PRN Reason: Constipation Heparin Sodium (Porcine) (Heparin Sodium 5,000 Units/Ml Vial) 5,000 units SUBCUT Q8H [facility] Sodium Chloride (Normal Saline) 1,000 mls @ 50 mls/hr IV ASDIRECTED [facility] Ceftriaxone Sodium 1 gm/ (Sodium Chloride) 100 mls @ 200 mls/hr IV Q24H [facility] Sodium Chloride (Normal Saline) 100 mls @ 60 mls/hr IV ASDIRECTED [facility] Last Admin: 02/06/21 18:16 Dose: 60 mls/hr Documented by: EMILE Insulin Glargine (Insulin Glarg,Human.Rec.Analog 100 Unit/Ml) 46 unit SUBCUT BEDTIME [facility] Insulin Human Regular (Insulin Regular, Human 100 Units/Ml 3 Ml Vial) 0 unit SUBCUT TIDPC [facility]; Protocol Lisinopril (Lisinopril 20 Mg Tab) 20 mg PO DAILY [facility] Loratadine (Loratadine 10 Mg Tab) 10 mg PO DAILY [facility] Magnesium Oxide (Magnesium Oxide 400 Mg Tab) 400 mg PO DAILY [facility] Metoprolol Succinate (Metoprolol Succinate 50 Mg Tab.Er) 50 mg PO DAILY [facility] Morphine Sulfate (Morphine 2 Mg/Ml Syringe) 2 mg IVPUSH Q2H PRN PRN Reason: Pain (severe 7-10) Stop: 02/07/21 17:16 Ondansetron HCl (Ondansetron 4 Mg Tab.Dis) 4 mg PO Q4H PRN PRN Reason: nausea, able to take PO Oxycodone HCl (Oxycodone 5 Mg Tab) 5 mg PO Q4H PRN PRN Reason: Pain (moderate 4-6) Prednisone (Prednisone 20 Mg Tab) 40 mg PO WITHBREAKFAST [facility] Rosuvastatin Calcium (Rosuvastatin 10 Mg Tab) 5 mg PO DAILY [facility] Sertraline HCl (Sertraline 50 Mg Tab) 100 mg PO DAILY [facility] Sodium Chloride (Sodium Chloride 0.9% 10 Ml Syringe) 10 ml FLUSH ONETIME PRN PRN Reason: Keep Vein Open Last Admin: 02/06/21 18:16 Dose: 10 ml Documented by: [id number] Temazepam (Temazepam 15 Mg Cap) 15 mg PO BEDTIME PRN PRN Reason: Sleep Labs: Laboratory Tests 02/06/21 02/06/21 02/06/21 Range/Units 14:50 14:50 14:50 WBC 10.77 H (3.98-10.04) K/mm3 RBC 4.58 (3.98-5.22) M/mm3 Hgb 12.3 (11.2-15.7) gm/dl Hct 38.4 (34.1-44.9) % MCV 83.8 (79.4-94.8) fl MCH 26.9 (25.6-32.2) pg MCHC 32.0 L (32.2-35.5) g/dl RDW Std Deviation 49.1 H (36.4-46.3) fL Plt Count 280 D (182-369) K/mm3 MPV 10.6 (9.4-12.3) fl Neut % (Auto) 78.9 H (34.0-71.1) % Lymph % (Auto) 9.9 L (19.3-51.7) % [place] % (Auto) 7.8 (4.7-12.5) % Eos % (Auto) 2.5 (0.7-5.8) Baso % (Auto) 0.5 (0.1-1.2) % Neut # (Auto) 8.50 H (1.56-6.13) K/mm3 Lymph # (Auto) 1.07 L (1.18-3.74) K/mm3 [place] # (Auto) 0.84 H (0.24-0.36) K/mm3 Eos # (Auto) 0.27 (0.04-0.36) K/mm3 Baso # (Auto) 0.05 (0.01-0.08) K/mm3 D-Dimer, Quantitative 4.12 H (0.19-0.50) mg/L Sodium 144 (136-145) mEq/L Potassium 4.3 (3.5-5.1) mEq/L Chloride 107 (98-107) mEq/L Carbon Dioxide 24 (21-32) mEq/L Anion Gap 17.3 H (5-15) BUN 42 H (7-18) mg/dL Creatinine 1.4 H (0.55-1.02) mg/dL Est Cr Clr Drug Dosing 33.65 mL/min Estimated GFR (MDRD) 37 (>60) mL/min BUN/Creatinine Ratio 30.0 H (14-18) Glucose 155 H (70-99) mg/dL Calcium 9.3 (8.5-10.1) mg/dL Magnesium 1.9 (1.8-2.4) mg/dL Total Bilirubin 0.4 (0.2-1.0) mg/dL AST 18 (15-37) U/L ALT 24 (14-59) U/L Alkaline Phosphatase 61 (46-116) U/L Troponin I (0.00-0.056) ng/mL C-Reactive Protein 9.2 H* (<1.0) mg/dL Total Protein 6.9 (6.4-8.2) g/dl Albumin 2.6 L (3.4-5.0) g/dl Globulin 4.3 gm/dL Albumin/Globulin Ratio 0.6 L (1-2) Urine Color (Yellow) Urine Appearance (Clear) Urine pH (5.0-8.0) Ur Specific [place] (1.005-1.030) Urine Protein (Negative) Urine Glucose (UA) (Negative) Urine Ketones (Negative) Urine Occult Blood (Negative) Urine Nitrite (Negative) Urine Bilirubin (Negative) Urine Urobilinogen (0.2-1.0) Ur Leukocyte Esterase (Negative) Urine RBC (0-5) /hpf Urine WBC (0-5) /hpf Urine WBC Clumps (NOT SEEN) /hpf Ur Epithelial Cells (0-5) /hpf Urine Bacteria (FEW) /hpf Urine Mucus (FEW) /hpf 02/06/21 02/06/21 Range/Units 14:50 16:15 WBC (3.98-10.04) K/mm3 RBC (3.98-5.22) M/mm3 Hgb (11.2-15.7) gm/dl Hct (34.1-44.9) % MCV (79.4-94.8) fl MCH (25.6-32.2) pg MCHC (32.2-35.5) g/dl RDW Std Deviation (36.4-46.3) fL Plt Count (182-369) K/mm3 MPV (9.4-12.3) fl Neut % (Auto) (34.0-71.1) % Lymph % (Auto) (19.3-51.7) % [place] % (Auto) (4.7-12.5) % Eos % (Auto) (0.7-5.8) Baso % (Auto) (0.1-1.2) % Neut # (Auto) (1.56-6.13) K/mm3 Lymph # (Auto) (1.18-3.74) K/mm3 [place] # (Auto) (0.24-0.36) K/mm3 Eos # (Auto) (0.04-0.36) K/mm3 Baso # (Auto) (0.01-0.08) K/mm3 D-Dimer, Quantitative (0.19-0.50) mg/L Sodium (136-145) mEq/L Potassium (3.5-5.1) mEq/L Chloride (98-107) mEq/L Carbon Dioxide (21-32) mEq/L Anion Gap (5-15) BUN (7-18) mg/dL Creatinine (0.55-1.02) mg/dL Est Cr Clr Drug Dosing mL/min Estimated GFR (MDRD) (>60) mL/min BUN/Creatinine Ratio (14-18) Glucose (70-99) mg/dL Calcium (8.5-10.1) mg/dL Magnesium (1.8-2.4) mg/dL Total Bilirubin (0.2-1.0) mg/dL AST (15-37) U/L ALT (14-59) U/L Alkaline Phosphatase (46-116) U/L Troponin I < 0.017 (0.00-0.056) ng/mL C-Reactive Protein (<1.0) mg/dL Total Protein (6.4-8.2) g/dl Albumin (3.4-5.0) g/dl Globulin gm/dL Albumin/Globulin Ratio (1-2) Urine Color Yellow (Yellow) Urine Appearance Clear (Clear) Urine pH 5.5 (5.0-8.0) Ur Specific [place] 1.020 (1.005-1.030) Urine Protein Negative (Negative) Urine Glucose (UA) Negative (Negative) Urine Ketones Negative (Negative) Urine Occult Blood Trace-lysed H (Negative) Urine Nitrite Positive H (Negative) Urine Bilirubin Negative (Negative) Urine Urobilinogen 0.2 (0.2-1.0) Ur Leukocyte Esterase 1+ H (Negative) Urine RBC 0-5 (0-5) /hpf Urine WBC 5-10 H (0-5) /hpf Urine WBC Clumps Few (NOT SEEN) /hpf Ur Epithelial Cells 0-5 (0-5) /hpf Urine Bacteria Many H (FEW) /hpf Urine Mucus Not seen (FEW) /hpf Meds: Medications Generic Name Dose Route Start Last Admin Trade Name Freq PRN Reason Stop Dose Admin Albuterol/Ipratropium 3 ml 02/06/21 17:16 Albuterol/Ipratropium 3.0-0.5 Mg/3 Ml Neb Soln NEB Q4H PRN Shortness Of Breath/wheezing Alogliptin Benzoate 12.5 mg 02/07/21 09:00 Alogliptin 12.5 Mg Tab PO DAILY [facility] Cholecalciferol 5,000 unit 02/07/21 09:00 Cholecalciferol (Vitamin D3) 5,000 Unit Tab PO DAILY [facility] Clopidogrel Bisulfate 75 mg 02/07/21 09:00 Clopidogrel 75 Mg Tab PO DAILY [facility] Docusate Sodium 100 mg 02/06/21 17:16 Docusate Sodium 100 Mg Cap PO BID PRN Constipation Heparin Sodium (Porcine) 5,000 units 02/06/21 18:00 Heparin Sodium 5,000 Units/Ml Vial SUBCUT Q8H [facility] Sodium Chloride 1,000 mls @ 50 mls/hr 02/06/21 17:30 Normal Saline IV ASDIRECTED [facility] Ceftriaxone Sodium 1 gm/ 100 mls @ 200 mls/hr 02/07/21 18:00 Sodium Chloride IV Q24H [facility] Sodium Chloride 100 mls @ 60 mls/hr 02/06/21 18:15 02/06/21 18:16 Normal Saline IV 60 mls/hr ASDIRECTED [facility] Administration Insulin Glargine 46 unit 02/06/21 21:00 Insulin Glarg,Human.Rec.Analog 100 Unit/Ml SUBCUT BEDTIME [facility] Insulin Human Regular 0 unit 02/06/21 19:00 Insulin Regular, Human 100 Units/Ml 3 Ml Vial SUBCUT TIDPC [facility] Protocol Lisinopril 20 mg 02/07/21 09:00 Lisinopril 20 Mg Tab PO DAILY [facility] Loratadine 10 mg 02/07/21 09:00 Loratadine 10 Mg Tab PO DAILY [facility] Magnesium Oxide 400 mg 02/07/21 09:00 Magnesium Oxide 400 Mg Tab PO DAILY [facility] Metoprolol Succinate 50 mg 02/07/21 09:00 Metoprolol Succinate 50 Mg Tab.Er PO DAILY [facility] Morphine Sulfate 2 mg 02/06/21 17:16 Morphine 2 Mg/Ml Syringe IVPUSH 02/07/21 17:16 Q2H PRN Pain (severe 7-10) Ondansetron HCl 4 mg 02/06/21 17:16 Ondansetron 4 Mg Tab.Dis PO Q4H PRN nausea, able to take PO Oxycodone HCl 5 mg 02/06/21 17:16 Oxycodone 5 Mg Tab PO Q4H PRN Pain (moderate 4-6) Prednisone 40 mg 02/07/21 07:00 Prednisone 20 Mg Tab PO WITHBREAKFAST [facility] Rosuvastatin Calcium 5 mg 02/07/21 09:00 Rosuvastatin 10 Mg Tab PO DAILY [facility] Sertraline HCl 100 mg 02/07/21 09:00 Sertraline 50 Mg Tab PO DAILY [facility] Sodium Chloride 10 ml 02/06/21 18:10 02/06/21 18:16 Sodium Chloride 0.9% 10 Ml Syringe FLUSH 10 ml ONETIME PRN Administration Keep Vein Open Temazepam 15 mg 02/06/21 17:16 Temazepam 15 Mg Cap PO BEDTIME PRN Sleep Discontinued Medications Generic Name Dose Route Start Last Admin Trade Name Freq PRN Reason Stop Dose Admin Ceftriaxone Sodium 1 gm/ 100 mls @ 200 mls/hr 02/06/21 16:27 02/06/21 17:03 Sodium Chloride IV 02/06/21 16:56 200 mls/hr ONETIME ONE Administration Iopamidol 100 ml 02/06/21 18:10 02/06/21 18:16 Iopamidol 755 Mg/Ml 100 Ml Bottle IVPUSH 02/06/21 18:11 100 ml ONETIME ONE Administration Metformin HCl 500 mg 02/07/21 07:00 Metformin 500 Mg Tab PO BIDMEALS [facility] Methylprednisolone Sodium Succinate 125 mg 02/06/21 16:27 02/06/21 17:03 Methylprednisolone Sodium Succinate 125 Mg/2 Ml Sdv IVPUSH 02/06/21 16:28 125 mg ONETIME ONE Administration - Re-Assessments/Exams Free Text/Narrative Re-Assessment/Exam: 02/06/21 16:35 Hematology reveals a WBC of 10.77, hemoglobin 12.3, hematocrit 38.4, platelet count 280, neutrophil percentage 78.9 Coagulation shows a D-dimer of 4.12 Chemistry reveals a sodium of 144, potassium 4.3, carbon dioxide 24, anion gap 17.3, BUN 42, creatinine 1.4, glucose 155, magnesium 1.9, total bilirubin 0.4, AST 18, ALT 24, troponin less than 0.017, C-reactive protein 9.2 Radiologist impression portable view of the chest compared to chest x-ray from 01/24/2021: 1. Increasing density on both sides of the chest, worse on the left side. Please correlate if patient has Covid symptoms for this to represent diffuse Covid pneumonia. 2. Stable cardiomegaly and right shoulder prosthesis. I do feel this patient warrants admission into the hospital. I discussed the case with our hospitalist, Dr. Cordova, and he agrees to admit the patient into his service. Patient states that she did not have a CT scan while in the hospital at [facility] and she is alert and oriented. I am going to go ahead and order a CT scan of the chest to rule out PE. Dr. Miller also request that I start the patient on 1 g of Rocephin and Solu-Medrol 125 mg IV. He will be over to see the patient. I have also requested that we obtain hospital records from [facility] in [place] from the patient's hospital stay. Departure - Departure Time of Disposition: 18:36 Disposition: Admitted As Inpatient 66 Condition: Fair Clinical Impression: Hypoxia, Weakness - Discharge Information Sepsis Event Note (ED) - Evaluation Sepsis Screening Result: No Definite Risk - Focused Exam Vital Signs: Vital Signs Temp Pulse Resp BP Pulse Ox 02/06/21 14:38 97 F 79 26 H 119/36 L 92 L - My Orders Last 24 Hours: My Active Orders 02/06/21 16:15 CULTURE URINE [MREF] Stat - Assessment/Plan Last 24 Hours: My Active Orders 02/06/21 16:15 CULTURE URINE [MREF] Stat
--- NOTE | 2021-02-06 15:54 | CR ---
Chest: Portable view of the chest was obtained. Comparison: Prior chest x-ray of 01/24/21. Heart is enlarged. Diffuse increased density is seen on both sides of the chest, worse on the left side. Right-sided shoulder prosthesis is seen. No definite acute osseous finding is appreciated. Impression: 1. Increasing density on both sides of the chest, worse on the left side. Please correlate if patient has COVID symptoms for this to represent diffuse COVID pneumonia. 2. Stable cardiomegaly and right shoulder prosthesis. Diagnostic code #3
[2021-02-06] MEDS ORDERED: cefTRIAXone 1 GM in Sodium Chloride 0.9% 100 ML IV ONE (16:27)
[2021-02-06] MEDS ORDERED: methylPREDNISolone Sodium Succinate 125 MG/2 ML SDV IVPUSH ONE (16:27)
[2021-02-06] MEDS ORDERED: Docusate Sodium 100 MG Cap PO PRN (17:16)
[2021-02-06] MEDS ORDERED: Ondansetron 4 MG Tab.DIS PO PRN (17:16)
[2021-02-06] MEDS ORDERED: Temazepam 15 MG Cap PO PRN (17:16)
[2021-02-06] MEDS ORDERED: Albuterol/Ipratropium 3.0-0.5 MG/3 ML Neb Soln NEB PRN (17:16)
[2021-02-06] MEDS ORDERED: Morphine 2 MG/ML SYRINGE IVPUSH PRN (17:16)
--- NOTE | 2021-02-06 17:25 | PCM.HP.2 ---
H&P History of Present Illness - General Date of Service: 02/06/21 Admit Problem/Dx: Admission Diagnosis/Problem Admission Diagnosis/Problem Weakness Source of Information: Patient History Limitations: Reports: No Limitations - History of Present Illness Initial Comments - Free Text/Narative: The patient is a 70-year-old lady who has presented to the emergency department with a complaint of shortness of breath. Approximately 2 and half weeks ago the patient had presented to the clinic with symptoms of headache, cough and was concerned about Covid pneumonia. The patient then presented to the emergency department on January 24, 2021 and because of diversion issues the patient was transferred to [facility] in [place]. The patient stayed in hospital she says for 6 days. The patient says that she had completed antivirals and she was also discharged on dexamethasone and Tessalon Perles. The patient also says that she was discharged 1 week ago on at least 5 L of oxygen per minute. This is new for her. The patient has a history of severe asthma and is under treatment for this as well. The patient says that her symptoms started suddenly yesterday and she had felt well up until yesterday. The patient says that she has had increasing shortness of breath and wheezing. The patient has denied any fever or chills. She has however had a headache. The patient also has a history of hypertension and diabetes. She takes medications for these. The patient currently lives alone by herself in an apartment. She does not use tobacco. Onset of Symptoms: Reports: Gradual Duration of Symptoms: Reports: Week(s): Location: Reports: Chest Improves with: Reports: Rest, Other (Oxygen) Worsens with: Reports: Breathing, Movement Associated Symptoms: Reports: Cough, Headaches, Weakness - Related Data Allergies/Adverse Reactions: Allergies Allergy/AdvReac Type Severity Reaction Status Date / Time ampicillin sodium Allergy Rash Verified 02/06/21 14:50 [From Unasyn] diphenhydramine HCl Allergy Itching Verified 02/06/21 14:50 [From Benadryl] Penicillins Allergy Rash Verified 02/06/21 14:50 sulbactam sodium Allergy Rash Verified 02/06/21 14:50 [From Unasyn] acetaminophen [From Tylenol] AdvReac Hallucinati Verified 02/06/21 14:50 ons Home Medications: Home Meds Albuterol Sulfate [Proair Respiclick] 2 puff IH Q6H PRN 10/15/18 [History] Calcium Carbonate [Calcium] 1,200 mg PO DAILY 10/15/18 [History] Clopidogrel [Plavix] 75 mg PO DAILY 10/15/18 [History] Fexofenadine [Alejandra] 180 mg PO DAILY 10/15/18 [History] Insulin Glargine,Hum.Rec.Anlog [Toujeo Solostar] 58 unit SQ BEDTIME 10/15/18 [History] Metoprolol Succinate [Toprol XL 50mg] 50 mg PO DAILY 10/15/18 [History] Quinapril [Accupril] 20 mg PO DAILY 10/15/18 [History] Rosuvastatin [Crestor] 5 mg PO DAILY 10/15/18 [History] Saxagliptin HCl [Onglyza] 5 mg PO DAILY 10/15/18 [History] Sertraline [Zoloft] 100 mg PO DAILY 10/15/18 [History] metFORMIN [Glucophage] 500 mg PO BIDMEALS 10/15/18 [History] Magnesium Oxide [Magnesium] 400 mg PO DAILY 12/31/18 [History] Cholecalciferol (Vitamin D3) [Vitamin D3] 5,000 unit PO DAILY 03/27/19 [History] Past Medical History HEENT History: Reports: Allergic Rhinitis, Impaired Vision, Sinusitis Other HEENT History: Tonsillitis Cardiovascular History: Reports: High Cholesterol, Hypertension Respiratory History: Reports: Asthma, Bronchitis, Recurrent Other Respiratory History: Deviated septum per patient and family Gastrointestinal History: Reports: Other (See Below) Other Gastrointestinal History: Gall bladder disease, elevated LFTs Genitourinary History: Reports: Urinary Incontinence Other Genitourinary History: Dysuria, urinary frequency, acute cystitis 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: Musculoskeletal History: Reports: Gout, Osteoarthritis Other Musculoskeletal History: Bursitis, rotator cuff injury, right shoulder pain Neurological History: Reports: CVA, TIA Other Neuro History: Neuralgia, cerebrovascular disease Psychiatric History: Reports: Depression Endocrine/Metabolic History: Reports: Diabetes, Type II, Obesity/BMI 30+ Dermatologic History: Reports: Cellulitis Other Dermatologic History: Cellulitis and abscess of foot, skin lesions - Infectious Disease History Infectious Disease History: Reports: Novel Coronavirus - Past Surgical History HEENT Surgical History: Reports: Adenoidectomy, Cataract Surgery, Tonsillectomy GI Surgical History: Reports: Appendectomy, Cholecystectomy, Colonoscopy Other GI Surgeries/Procedures: Fatty liver for LFT. monitor by Dr. Francois [email or web address]. Female Surgical History: Reports: Section, Tubal Ligation Musculoskeletal Surgical History: Reports: Carpal Tunnel, Knee Replacement, Shoulder Surgery Other Musculoskeletal Surgeries/Procedures:: Bilateral total knee arthroplasty, bilateral rotator cuff repair Social & Family History - Family History Family Medical History: No Pertinent Family History - Tobacco Use Tobacco Use Status *Q: Never Tobacco User Second Hand Smoke Exposure: No - Caffeine Use Caffeine Use: Reports: None Other Caffeine Use: Decaf coffee and herbal tea. - Recreational Drug Use Recreational Drug Use: No - Living Situation & Occupation Living situation: Reports: , Alone Occupation: Retired H&P Review of Systems - Review of Systems: Review Of Systems: See Below General: Reports: Weakness, Fatigue HEENT: Reports: No Symptoms Pulmonary: Reports: Shortness of Breath, Cough Cardiovascular: Reports: No Symptoms Gastrointestinal: Reports: No Symptoms Genitourinary: Reports: No Symptoms Musculoskeletal: Reports: No Symptoms Skin: Reports: No Symptoms Psychiatric: Reports: No Symptoms Neurological: Reports: No Symptoms Hematologic/Lymphatic: Reports: No Symptoms Immunologic: Reports: No Symptoms Exam - Exam Exam: See Below - Vital Signs Vital Signs: Last Vital Signs Temp 36.1 C 02/06/21 14:38 Pulse 79 02/06/21 14:38 Resp 26 H 02/06/21 14:38 BP 119/36 L 02/06/21 14:38 Pulse Ox 92 L 02/06/21 14:38 Weight: 122.47 kg - Exam Quality Assessment: Supplemental Oxygen, DVT Prophylaxis General: Alert, Oriented, Cooperative HEENT: Conjunctiva Clear, EACs Clear, EOMI, Hearing Intact, Posterior Pharynx Clear, PERRLA. No: Mucosa Moist & Tiger (Dry) Neck: Supple, Trachea Midline Lungs: Normal Respiratory Effort, Crackles Cardiovascular: Regular Rate, Regular Rhythm GI/Abdominal Exam: Normal Bowel Sounds, Soft, Non-Tender, No Distention (Female) Exam: Deferred Rectal (Female) Exam: Deferred Back Exam: Normal Inspection, Full Range of Motion Extremities: Normal Inspection, Normal Range of Motion, No Pedal Edema Skin: Warm, Dry, Intact Neurological: Cranial Nerves Intact, Normal Gait, Normal Speech, Normal Tone Psychiatric: Alert, Normal Affect, Normal Mood - Patient Data Lab Results Last 24 hrs: Laboratory Results - last 24 hr 02/06/21 02/06/21 02/06/21 Range/Units 14:50 14:50 14:50 WBC 10.77 H (3.98-10.04) K/mm3 RBC 4.58 (3.98-5.22) M/mm3 Hgb 12.3 (11.2-15.7) gm/dl Hct 38.4 (34.1-44.9) % MCV 83.8 (79.4-94.8) fl MCH 26.9 (25.6-32.2) pg MCHC 32.0 L (32.2-35.5) g/dl RDW Std Deviation 49.1 H (36.4-46.3) fL Plt Count 280 D (182-369) K/mm3 MPV 10.6 (9.4-12.3) fl Neut % (Auto) 78.9 H (34.0-71.1) % Lymph % (Auto) 9.9 L (19.3-51.7) % [place] % (Auto) 7.8 (4.7-12.5) % Eos % (Auto) 2.5 (0.7-5.8) Baso % (Auto) 0.5 (0.1-1.2) % Neut # (Auto) 8.50 H (1.56-6.13) K/mm3 Lymph # (Auto) 1.07 L (1.18-3.74) K/mm3 [place] # (Auto) 0.84 H (0.24-0.36) K/mm3 Eos # (Auto) 0.27 (0.04-0.36) K/mm3 Baso # (Auto) 0.05 (0.01-0.08) K/mm3 D-Dimer, Quantitative 4.12 H (0.19-0.50) mg/L Sodium 144 (136-145) mEq/L Potassium 4.3 (3.5-5.1) mEq/L Chloride 107 (98-107) mEq/L Carbon Dioxide 24 (21-32) mEq/L Anion Gap 17.3 H (5-15) BUN 42 H (7-18) mg/dL Creatinine 1.4 H (0.55-1.02) mg/dL Est Cr Clr Drug Dosing 33.65 mL/min Estimated GFR (MDRD) 37 (>60) mL/min BUN/Creatinine Ratio 30.0 H (14-18) Glucose 155 H (70-99) mg/dL Calcium 9.3 (8.5-10.1) mg/dL Magnesium 1.9 (1.8-2.4) mg/dL Total Bilirubin 0.4 (0.2-1.0) mg/dL AST 18 (15-37) U/L ALT 24 (14-59) U/L Alkaline Phosphatase 61 (46-116) U/L Troponin I (0.00-0.056) ng/mL C-Reactive Protein 9.2 H* (<1.0) mg/dL Total Protein 6.9 (6.4-8.2) g/dl Albumin 2.6 L (3.4-5.0) g/dl Globulin 4.3 gm/dL Albumin/Globulin Ratio 0.6 L (1-2) Urine Color (Yellow) Urine Appearance (Clear) Urine pH (5.0-8.0) Ur Specific [place] (1.005-1.030) Urine Protein (Negative) Urine Glucose (UA) (Negative) Urine Ketones (Negative) Urine Occult Blood (Negative) Urine Nitrite (Negative) Urine Bilirubin (Negative) Urine Urobilinogen (0.2-1.0) Ur Leukocyte Esterase (Negative) 02/06/21 02/06/21 Range/Units 14:50 16:15 WBC (3.98-10.04) K/mm3 RBC (3.98-5.22) M/mm3 Hgb (11.2-15.7) gm/dl Hct (34.1-44.9) % MCV (79.4-94.8) fl MCH (25.6-32.2) pg MCHC (32.2-35.5) g/dl RDW Std Deviation (36.4-46.3) fL Plt Count (182-369) K/mm3 MPV (9.4-12.3) fl Neut % (Auto) (34.0-71.1) % Lymph % (Auto) (19.3-51.7) % [place] % (Auto) (4.7-12.5) % Eos % (Auto) (0.7-5.8) Baso % (Auto) (0.1-1.2) % Neut # (Auto) (1.56-6.13) K/mm3 Lymph # (Auto) (1.18-3.74) K/mm3 [place] # (Auto) (0.24-0.36) K/mm3 Eos # (Auto) (0.04-0.36) K/mm3 Baso # (Auto) (0.01-0.08) K/mm3 D-Dimer, Quantitative (0.19-0.50) mg/L Sodium (136-145) mEq/L Potassium (3.5-5.1) mEq/L Chloride (98-107) mEq/L Carbon Dioxide (21-32) mEq/L Anion Gap (5-15) BUN (7-18) mg/dL Creatinine (0.55-1.02) mg/dL Est Cr Clr Drug Dosing mL/min Estimated GFR (MDRD) (>60) mL/min BUN/Creatinine Ratio (14-18) Glucose (70-99) mg/dL Calcium (8.5-10.1) mg/dL Magnesium (1.8-2.4) mg/dL Total Bilirubin (0.2-1.0) mg/dL AST (15-37) U/L ALT (14-59) U/L Alkaline Phosphatase (46-116) U/L Troponin I < 0.017 (0.00-0.056) ng/mL C-Reactive Protein (<1.0) mg/dL Total Protein (6.4-8.2) g/dl Albumin (3.4-5.0) g/dl Globulin gm/dL Albumin/Globulin Ratio (1-2) Urine Color Yellow (Yellow) Urine Appearance Clear (Clear) Urine pH 5.5 (5.0-8.0) Ur Specific [place] 1.020 (1.005-1.030) Urine Protein Negative (Negative) Urine Glucose (UA) Negative (Negative) Urine Ketones Negative (Negative) Urine Occult Blood Trace-lysed H (Negative) Urine Nitrite Positive H (Negative) Urine Bilirubin Negative (Negative) Urine Urobilinogen 0.2 (0.2-1.0) Ur Leukocyte Esterase 1+ H (Negative) Result Diagrams: 02/06/21 14:50 02/06/21 14:50 Sepsis Event Note - Evaluation Sepsis Screening Result: No Definite Risk - Focused Exam Vital Signs: Vital Signs Temp Pulse Resp BP Pulse Ox 02/06/21 14:38 36.1 C 79 26 H 119/36 L 92 L - Problem List (1) Acute respiratory failure SNOMED Code(s): 82756064 ICD Code: J96.00 - ACUTE RESPIRATORY FAILURE, UNSP W HYPOXIA OR HYPERCAPNIA Status: Acute Priority: High Current Visit: Yes Qualifiers: Respiratory failure complication: hypoxia Qualified Code(s): J96.01 - Acute respiratory failure with hypoxia (2) Pneumonitis, hypersensitivity SNOMED Code(s): 23426411 ICD Code: J67.9 - HYPERSENSITIVITY PNEUMONITIS DUE TO UNSPECIFIED ORGANIC DUST Status: Acute Current Visit: Yes (3) COVID-19 SNOMED Code(s): 281758346 ICD Code: U07.1 - COVID-19 Status: Acute Priority: High Current Visit: Yes (4) Chronic renal disease, stage 3, moderately decreased glomerular filtration rate (GFR) between 30-59 mL/min/1.73 square meter SNOMED Code(s): 567285222 ICD Code: N18.30 - CHRONIC KIDNEY DISEASE, STAGE 3 UNSPECIFIED Status: Chronic Priority: High Current Visit: Yes Qualifiers: Chronic kidney disease stage 3 subtype: stage 3b (GFR 30-44) Qualified Code(s): N18.32 - Chronic kidney disease, stage 3b (5) Hypoxia SNOMED Code(s): 016664987 ICD Code: R09.02 - HYPOXEMIA Status: Acute Priority: High Current Visit: Yes Problem List Initiated/Reviewed/Updated: Yes Orders Last 24hrs: Active Orders 24 hr Category Date Time Status Admission Status [Patient Status] [ADT] Routine ADT 02/06/21 16:32 Active Cardiac Monitoring [RC] CONTINUOUS Care 02/06/21 17:16 Ordered Oxygen Therapy [RC] PRN Care 02/06/21 17:16 Ordered Up ad Aracely [RC] ASDIRECTED Care 02/06/21 17:16 Ordered VTE/DVT Education [RC] PER UNIT ROUTINE Care 02/06/21 17:16 Ordered Vital Signs [RC] Q4H Care 02/06/21 17:16 Ordered [place] [employer] Diet [DIET] Diet 02/07/21 Breakfast Ordered CTA Chest W WO Contrast [Ang Chest] [CT] Stat Exams 02/06/21 16:33 Ordered C-REACTIVE PROTEIN [CHEM] AM Lab 02/07/21 05:11 Ordered CBC WITH AUTO DIFF [HEME] AM Lab 02/07/21 05:11 Ordered COMPREHENSIVE METABOLIC PN,CMP [CHEM] AM Lab 02/07/21 05:11 Ordered CULTURE URINE [MREF] Stat Lab 02/06/21 16:15 Received D-DIMER QUANTITATIVE [COAG] AM Lab 02/07/21 05:11 Ordered MAGNESIUM [CHEM] AM Lab 02/07/21 05:11 Ordered UA W/MICROSCOPIC [URIN] Stat Lab 02/06/21 16:15 Results Albuterol/Ipratropium [DuoNeb 3.0-0.5 MG/3 ML] Med 02/06/21 17:16 Ordered 3 ml NEB Q4H PRN Cholecalciferol (Vitamin D3) Med 02/07/21 09:00 Ordered 5,000 unit PO DAILY Clopidogrel [Plavix] Med 02/07/21 09:00 Ordered 75 mg PO DAILY Docusate Sodium [Colace] Med 02/06/21 17:16 Ordered 100 mg PO BID PRN Fexofenadine Med 02/07/21 09:00 Ordered 180 mg PO DAILY Heparin Sodium Med 02/06/21 17:30 Ordered 5,000 units SUBCUT Q8H Insulin Glargine,Hum.Rec.Anlog [Mili Solsharri] Med 02/06/21 21:00 Ordered 58 unit SQ BEDTIME Magnesium Oxide [Magnesium] Med 02/07/21 09:00 Ordered 400 mg PO DAILY Metoprolol Succinate [Toprol XL] Med 02/07/21 09:00 Ordered 50 mg PO DAILY Morphine Med 02/06/21 17:16 Ordered 2 mg IVPUSH Q2H PRN Ondansetron [Zofran ODT] Med 02/06/21 17:16 Ordered 4 mg PO Q4H PRN Quinapril Med 02/07/21 09:00 Ordered 20 mg PO DAILY Rosuvastatin Med 02/07/21 09:00 Ordered 5 mg PO DAILY Saxagliptin HCl [Onglyza] Med 02/07/21 09:00 Ordered 5 mg PO DAILY Sertraline [Zoloft] Med 02/07/21 09:00 Ordered 100 mg PO DAILY Sodium Chloride 0.9% @ 50 MLS/HR(1000ml Bag) Med 02/06/21 17:30 Ordered Sodium Chloride 0.9% [Normal Saline] 1,000 ml IV ASDIRECTED Temazepam [Restoril] Med 02/06/21 17:16 Ordered 15 mg PO BEDTIME PRN cefTRIAXone [Rocephin] 1 gm Med 02/06/21 17:30 Ordered Sodium Chloride 0.9% [Normal Saline] 100 ml IV Q24H metFORMIN [Glucophage] Med 02/07/21 07:00 Ordered 500 mg PO BIDMEALS oxyCODONE Med 02/06/21 17:16 Ordered 5 mg PO Q4H PRN predniSONE Med 02/07/21 07:00 Ordered 40 mg PO WITHBREAKFAST Resuscitation Status Routine Resus Stat 02/06/21 17:16 Ordered Medication Orders Cholecalciferol (Cholecalciferol (Vitamin D3) 5,000 Unit Tab) 5,000 unit PO DAILY NAZIA Clopidogrel Bisulfate (Clopidogrel 75 Mg Tab) 75 mg PO DAILY NAZIA Metformin HCl (Metformin 500 Mg Tab) 500 mg PO BIDMEALS NAZIA Metoprolol Succinate (Metoprolol Succinate 50 Mg Tab.Er) 50 mg PO DAILY NAZIA Non-Formulary Medication (Fexofenadine) 180 mg PO DAILY NAZIA Non-Formulary Medication (Insulin Glargine,Hum.Rec.Anlog [Mili [place]]) 58 unit SQ BEDTIME NAZIA Non-Formulary Medication (Magnesium Oxide [Magnesium]) 400 mg PO DAILY NAZIA Non-Formulary Medication (Quinapril) 20 mg PO DAILY NAZIA Non-Formulary Medication (Rosuvastatin) 5 mg PO DAILY NAZIA Non-Formulary Medication (Saxagliptin Hcl [Onglyza]) 5 mg PO DAILY NAZIA Sertraline HCl (Sertraline 50 Mg Tab) 100 mg PO DAILY [facility] Assessment/Plan Comment:: The patient is a 70-year-old lady who has been admitted to acute hospitalization secondary to what appears to be more hypersensitivity pneumonitis as opposed to Covid pneumonia. Regardless for now the patient will be kept in Covid isolation. I have ordered the patient to have Rocephin renally dosed at 1 g IV every 24 hours. This is for the possibility of superimposed infection. She also be gently hydrated with the use of IV normal saline at 75 mL/h. I have also ordered for the patient prednisone 40 mg p.o. daily. Repeat laboratory studies have been ordered for the morning. The patient will also have CT scan that has been ordered through the emergency department. This was due to the patient's D-dimer being elevated and it is uncertain what her D-dimer was upon discharge a week ago. For renal protection the patient's Metformin has been held. Patient will have a diabetic diet as tolerated. I have continued her Lantus. She will be kept on insulin medium dose sliding scale. The patient also will be anticoagulated with the use of heparin 5000 units subcu every 8 hours. Her home medications consisting of Plavix will also be continued. DuoNeb's breathing treatment have been ordered. She has also been recommended to continue with oxygen support to help keep her saturations between 90 and 92%. Patient has been encouraged to ambulate.For now the patient will be kept as an inpatient on telemetry and she should be appropriate for discharge in 1 to 2 days. - Mortality Measure Prognosis:: Good
[2021-02-06] MEDS ORDERED: Heparin Sodium 5,000 Units/ML Vial SUBCUT SCH (18:00)
[2021-02-06] MEDS ORDERED: Sodium Chloride 0.9% 10 ML Syringe FLUSH PRN (18:10)
[2021-02-06] MEDS ORDERED: Iopamidol 755 Mg/ML 100 ML Bottle IVPUSH ONE (18:10)
[2021-02-06] MEDS ORDERED: Sodium Chloride 0.9% 100 ML IV SCH (18:15)
--- NOTE | 2021-02-06 18:17 | CT ---
CT chest Technique: Multiple axial sections through the chest were obtained. Intravenous contrast was utilized. Study has been performed as a pulmonary angiogram protocol. Comparison: Prior chest x-ray of 02/06/21. Findings: Pulmonary arteries are well opacified. No filling defects are seen to indicate pulmonary embolism. Thoracic aorta shows atherosclerotic calcification with no aneurysm. Small lymph nodes are noted within the mediastinum which are within normal limits. Heart is enlarged. Visualized abdominal structures show prior cholecystectomy. Spleen is also enlarged at 14.8 cm. Diffuse parenchymal change is seen within both lungs compatible with diffuse COVID pneumonia. No pleural effusions are seen. Bone window settings were reviewed. Scattered degenerative change is noted throughout the spine. Several old left-sided rib fractures are seen which appear healed. Impression: 1. No findings of pulmonary embolism. 2. Diffuse findings of COVID pneumonia. 3. Splenomegaly and other stable findings as noted above. Diagnostic code #3
[2021-02-06] MEDS: Sodium Chloride 0.9% 1,000 ML IV SCH (20:24)
[2021-02-06] MEDS: Heparin Sodium 5,000 Units/ML Vial SUBCUT SCH (20:25)
[2021-02-06] MEDS ORDERED: Insulin Glarg,Human.Rec.Analog 100 Unit/ML SUBCUT SCH (21:00)
[2021-02-06] MEDS: oxyCODONE 5 MG Tab PO PRN (21:36)
[2021-02-06] MEDS: Insulin Regular, Human 100 Units/ML 3 ML Vial SUBCUT SCH (21:38)
[2021-02-07] MEDS: Heparin Sodium 5,000 Units/ML Vial SUBCUT SCH (04:41)
[2021-02-07] MEDS ORDERED: metFORMIN 500 MG Tab PO SCH (07:00)
[2021-02-07] MEDS: Albuterol 6.7 GM Inhaler INH PRN ×4 (07:11→20:20)
[2021-02-07] MEDS: oxyCODONE 5 MG Tab PO PRN ×2 (07:24→14:42)
[2021-02-07] MEDS: predniSONE 20 MG Tab PO SCH (07:24)
[2021-02-07] MEDS: Magnesium Oxide 400 MG Tab PO SCH (08:38)
[2021-02-07] MEDS: Clopidogrel 75 MG Tab PO SCH (08:38)
[2021-02-07] MEDS: Lisinopril 20 MG Tab PO SCH (08:38)
[2021-02-07] MEDS: Metoprolol Succinate 50 MG Tab.ER PO SCH (08:39)
[2021-02-07] MEDS: Sertraline 50 MG Tab PO SCH (08:39)
[2021-02-07] MEDS: Loratadine 10 MG Tab PO SCH (08:40)
[2021-02-07] MEDS: Cholecalciferol (Vitamin D3) 5,000 UNIT Cap PO SCH (08:40)
[2021-02-07] MEDS: Rosuvastatin 10 MG Tab PO SCH (08:40)
[2021-02-07] MEDS: Insulin Regular, Human 100 Units/ML 3 ML Vial SUBCUT SCH ×3 (08:42→18:08)
[2021-02-07] MEDS ORDERED: Cholecalciferol (Vitamin D3) 5,000 UNIT Tab PO SCH (09:00)
--- NOTE | 2021-02-07 09:25 | PCM.PN ---
- General Info Date of Service: 02/07/21 Admission Dx/Problem (Free Text): short of breath Subjective Update: Feeling positive and improving. Pain in the right calf feels like a sprain - Review of Systems General: Reports: Weakness, Fatigue, Malaise HEENT: Reports: No Symptoms Pulmonary: Reports: Shortness of Breath Cardiovascular: Reports: No Symptoms Gastrointestinal: Reports: No Symptoms Genitourinary: Reports: No Symptoms Musculoskeletal: Reports: No Symptoms Skin: Reports: No Symptoms Neurological: Reports: No Symptoms - Patient Data Vitals - Most Recent: Last Vital Signs Temp 97.7 F 02/07/21 07:41 Pulse 71 02/07/21 08:39 Resp 18 02/07/21 07:41 BP 138/89 02/07/21 08:39 Pulse Ox 97 02/07/21 08:41 Weight - Most Recent: 255 lb 12.8 oz I&O - Last 24 Hours: Intake & Output 02/06/21 02/07/21 02/07/21 22:59 06:59 14:59 Intake Total 200 713 Output Total 850 Balance 200 -137 Lab Results Last 24 Hours: Laboratory Results - last 24 hr 02/06/21 02/06/21 02/06/21 Range/Units 14:50 14:50 14:50 WBC 10.77 H (3.98-10.04) K/mm3 RBC 4.58 (3.98-5.22) M/mm3 Hgb 12.3 (11.2-15.7) gm/dl Hct 38.4 (34.1-44.9) % MCV 83.8 (79.4-94.8) fl MCH 26.9 (25.6-32.2) pg MCHC 32.0 L (32.2-35.5) g/dl RDW Std Deviation 49.1 H (36.4-46.3) fL Plt Count 280 D (182-369) K/mm3 MPV 10.6 (9.4-12.3) fl Neut % (Auto) 78.9 H (34.0-71.1) % Lymph % (Auto) 9.9 L (19.3-51.7) % Edmunds % (Auto) 7.8 (4.7-12.5) % Eos % (Auto) 2.5 (0.7-5.8) Baso % (Auto) 0.5 (0.1-1.2) % Neut # (Auto) 8.50 H (1.56-6.13) K/mm3 Lymph # (Auto) 1.07 L (1.18-3.74) K/mm3 Edmunds # (Auto) 0.84 H (0.24-0.36) K/mm3 Eos # (Auto) 0.27 (0.04-0.36) K/mm3 Baso # (Auto) 0.05 (0.01-0.08) K/mm3 D-Dimer, Quantitative 4.12 H (0.19-0.50) mg/L Sodium 144 (136-145) mEq/L Potassium 4.3 (3.5-5.1) mEq/L Chloride 107 (98-107) mEq/L Carbon Dioxide 24 (21-32) mEq/L Anion Gap 17.3 H (5-15) BUN 42 H (7-18) mg/dL Creatinine 1.4 H (0.55-1.02) mg/dL Est Cr Clr Drug Dosing 33.65 mL/min Estimated GFR (MDRD) 37 (>60) mL/min BUN/Creatinine Ratio 30.0 H (14-18) Glucose 155 H (70-99) mg/dL POC Glucose (70-99) mg/dL Calcium 9.3 (8.5-10.1) mg/dL Magnesium 1.9 (1.8-2.4) mg/dL Total Bilirubin 0.4 (0.2-1.0) mg/dL AST 18 (15-37) U/L ALT 24 (14-59) U/L Alkaline Phosphatase 61 (46-116) U/L Troponin I (0.00-0.056) ng/mL C-Reactive Protein 9.2 H* (<1.0) mg/dL Total Protein 6.9 (6.4-8.2) g/dl Albumin 2.6 L (3.4-5.0) g/dl Globulin 4.3 gm/dL Albumin/Globulin Ratio 0.6 L (1-2) Urine Color (Yellow) Urine Appearance (Clear) Urine pH (5.0-8.0) Ur Specific Alexander (1.005-1.030) Urine Protein (Negative) Urine Glucose (UA) (Negative) Urine Ketones (Negative) Urine Occult Blood (Negative) Urine Nitrite (Negative) Urine Bilirubin (Negative) Urine Urobilinogen (0.2-1.0) Ur Leukocyte Esterase (Negative) Urine RBC (0-5) /hpf Urine WBC (0-5) /hpf Urine WBC Clumps (NOT SEEN) /hpf Ur Epithelial Cells (0-5) /hpf Urine Bacteria (FEW) /hpf Urine Mucus (FEW) /hpf 02/06/21 02/06/21 02/06/21 Range/Units 14:50 16:15 20:29 WBC (3.98-10.04) K/mm3 RBC (3.98-5.22) M/mm3 Hgb (11.2-15.7) gm/dl Hct (34.1-44.9) % MCV (79.4-94.8) fl MCH (25.6-32.2) pg MCHC (32.2-35.5) g/dl RDW Std Deviation (36.4-46.3) fL Plt Count (182-369) K/mm3 MPV (9.4-12.3) fl Neut % (Auto) (34.0-71.1) % Lymph % (Auto) (19.3-51.7) % Edmunds % (Auto) (4.7-12.5) % Eos % (Auto) (0.7-5.8) Baso % (Auto) (0.1-1.2) % Neut # (Auto) (1.56-6.13) K/mm3 Lymph # (Auto) (1.18-3.74) K/mm3 Edmunds # (Auto) (0.24-0.36) K/mm3 Eos # (Auto) (0.04-0.36) K/mm3 Baso # (Auto) (0.01-0.08) K/mm3 D-Dimer, Quantitative (0.19-0.50) mg/L Sodium (136-145) mEq/L Potassium (3.5-5.1) mEq/L Chloride (98-107) mEq/L Carbon Dioxide (21-32) mEq/L Anion Gap (5-15) BUN (7-18) mg/dL Creatinine (0.55-1.02) mg/dL Est Cr Clr Drug Dosing mL/min Estimated GFR (MDRD) (>60) mL/min BUN/Creatinine Ratio (14-18) Glucose (70-99) mg/dL POC Glucose 237 H (70-99) mg/dL Calcium (8.5-10.1) mg/dL Magnesium (1.8-2.4) mg/dL Total Bilirubin (0.2-1.0) mg/dL AST (15-37) U/L ALT (14-59) U/L Alkaline Phosphatase (46-116) U/L Troponin I < 0.017 (0.00-0.056) ng/mL C-Reactive Protein (<1.0) mg/dL Total Protein (6.4-8.2) g/dl Albumin (3.4-5.0) g/dl Globulin gm/dL Albumin/Globulin Ratio (1-2) Urine Color Yellow (Yellow) Urine Appearance Clear (Clear) Urine pH 5.5 (5.0-8.0) Ur Specific Alexander 1.020 (1.005-1.030) Urine Protein Negative (Negative) Urine Glucose (UA) Negative (Negative) Urine Ketones Negative (Negative) Urine Occult Blood Trace-lysed H (Negative) Urine Nitrite Positive H (Negative) Urine Bilirubin Negative (Negative) Urine Urobilinogen 0.2 (0.2-1.0) Ur Leukocyte Esterase 1+ H (Negative) Urine RBC 0-5 (0-5) /hpf Urine WBC 5-10 H (0-5) /hpf Urine WBC Clumps Few (NOT SEEN) /hpf Ur Epithelial Cells 0-5 (0-5) /hpf Urine Bacteria Many H (FEW) /hpf Urine Mucus Not seen (FEW) /hpf 02/07/21 02/07/21 02/07/21 Range/Units 06:12 06:12 06:12 WBC 6.61 (3.98-10.04) K/mm3 RBC 4.26 (3.98-5.22) M/mm3 Hgb 11.6 (11.2-15.7) gm/dl Hct 36.3 (34.1-44.9) % MCV 85.2 (79.4-94.8) fl MCH 27.2 (25.6-32.2) pg MCHC 32.0 L (32.2-35.5) g/dl RDW Std Deviation 48.7 H (36.4-46.3) fL Plt Count 236 (182-369) K/mm3 MPV 10.2 (9.4-12.3) fl Neut % (Auto) 87.9 H (34.0-71.1) % Lymph % (Auto) 9.4 L (19.3-51.7) % Edmunds % (Auto) 1.7 L (4.7-12.5) % Eos % (Auto) 0.2 L (0.7-5.8) Baso % (Auto) 0.2 (0.1-1.2) % Neut # (Auto) 5.82 (1.56-6.13) K/mm3 Lymph # (Auto) 0.62 L (1.18-3.74) K/mm3 Edmunds # (Auto) 0.11 L (0.24-0.36) K/mm3 Eos # (Auto) 0.01 L (0.04-0.36) K/mm3 Baso # (Auto) 0.01 (0.01-0.08) K/mm3 D-Dimer, Quantitative 4.02 H (0.19-0.50) mg/L Sodium 143 (136-145) mEq/L Potassium 5.2 H (3.5-5.1) mEq/L Chloride 108 H (98-107) mEq/L Carbon Dioxide 25 (21-32) mEq/L Anion Gap 15.2 H (5-15) BUN 33 H (7-18) mg/dL Creatinine 1.2 H (0.55-1.02) mg/dL Est Cr Clr Drug Dosing 39.25 mL/min Estimated GFR (MDRD) 44 (>60) mL/min BUN/Creatinine Ratio 27.5 H (14-18) Glucose 273 H (70-99) mg/dL POC Glucose (70-99) mg/dL Calcium 8.8 (8.5-10.1) mg/dL Magnesium 1.7 L (1.8-2.4) mg/dL Total Bilirubin 0.3 (0.2-1.0) mg/dL AST 14 L (15-37) U/L ALT 23 (14-59) U/L Alkaline Phosphatase 64 (46-116) U/L Troponin I (0.00-0.056) ng/mL C-Reactive Protein 5.2 H* (<1.0) mg/dL Total Protein 6.6 (6.4-8.2) g/dl Albumin 2.5 L (3.4-5.0) g/dl Globulin 4.1 gm/dL Albumin/Globulin Ratio 0.6 L (1-2) Urine Color (Yellow) Urine Appearance (Clear) Urine pH (5.0-8.0) Ur Specific Alexander (1.005-1.030) Urine Protein (Negative) Urine Glucose (UA) (Negative) Urine Ketones (Negative) Urine Occult Blood (Negative) Urine Nitrite (Negative) Urine Bilirubin (Negative) Urine Urobilinogen (0.2-1.0) Ur Leukocyte Esterase (Negative) Urine RBC (0-5) /hpf Urine WBC (0-5) /hpf Urine WBC Clumps (NOT SEEN) /hpf Ur Epithelial Cells (0-5) /hpf Urine Bacteria (FEW) /hpf Urine Mucus (FEW) /hpf 02/07/21 Range/Units 06:14 WBC (3.98-10.04) K/mm3 RBC (3.98-5.22) M/mm3 Hgb (11.2-15.7) gm/dl Hct (34.1-44.9) % MCV (79.4-94.8) fl MCH (25.6-32.2) pg MCHC (32.2-35.5) g/dl RDW Std Deviation (36.4-46.3) fL Plt Count (182-369) K/mm3 MPV (9.4-12.3) fl Neut % (Auto) (34.0-71.1) % Lymph % (Auto) (19.3-51.7) % Edmunds % (Auto) (4.7-12.5) % Eos % (Auto) (0.7-5.8) Baso % (Auto) (0.1-1.2) % Neut # (Auto) (1.56-6.13) K/mm3 Lymph # (Auto) (1.18-3.74) K/mm3 Edmunds # (Auto) (0.24-0.36) K/mm3 Eos # (Auto) (0.04-0.36) K/mm3 Baso # (Auto) (0.01-0.08) K/mm3 D-Dimer, Quantitative (0.19-0.50) mg/L Sodium (136-145) mEq/L Potassium (3.5-5.1) mEq/L Chloride (98-107) mEq/L Carbon Dioxide (21-32) mEq/L Anion Gap (5-15) BUN (7-18) mg/dL Creatinine (0.55-1.02) mg/dL Est Cr Clr Drug Dosing mL/min Estimated GFR (MDRD) (>60) mL/min BUN/Creatinine Ratio (14-18) Glucose (70-99) mg/dL POC Glucose 262 H (70-99) mg/dL Calcium (8.5-10.1) mg/dL Magnesium (1.8-2.4) mg/dL Total Bilirubin (0.2-1.0) mg/dL AST (15-37) U/L ALT (14-59) U/L Alkaline Phosphatase (46-116) U/L Troponin I (0.00-0.056) ng/mL C-Reactive Protein (<1.0) mg/dL Total Protein (6.4-8.2) g/dl Albumin (3.4-5.0) g/dl Globulin gm/dL Albumin/Globulin Ratio (1-2) Urine Color (Yellow) Urine Appearance (Clear) Urine pH (5.0-8.0) Ur Specific Alexander (1.005-1.030) Urine Protein (Negative) Urine Glucose (UA) (Negative) Urine Ketones (Negative) Urine Occult Blood (Negative) Urine Nitrite (Negative) Urine Bilirubin (Negative) Urine Urobilinogen (0.2-1.0) Ur Leukocyte Esterase (Negative) Urine RBC (0-5) /hpf Urine WBC (0-5) /hpf Urine WBC Clumps (NOT SEEN) /hpf Ur Epithelial Cells (0-5) /hpf Urine Bacteria (FEW) /hpf Urine Mucus (FEW) /hpf Med Orders - Current: Current Medications Albuterol (Albuterol 6.7 Gm Inhaler) 0 gm INH Q4H PRN PRN Reason: SOB/WHEEZING Last Admin: 02/07/21 07:11 Dose: 2 puff Documented by: Albuterol/Ipratropium (Albuterol/Ipratropium 3.0-0.5 Mg/3 Ml Neb Soln) 3 ml NEB Q4H PRN PRN Reason: Shortness Of Breath/wheezing Alogliptin Benzoate (Alogliptin 12.5 Mg Tab) 12.5 mg PO DAILY [facility] Last Admin: 02/07/21 08:40 Dose: 12.5 mg Documented by: Cholecalciferol (Cholecalciferol (Vitamin D3) 5,000 Unit Cap) 5,000 unit PO DAILY [facility] Last Admin: 02/07/21 08:40 Dose: 5,000 unit Documented by: Clopidogrel Bisulfate (Clopidogrel 75 Mg Tab) 75 mg PO DAILY [facility] Last Admin: 02/07/21 08:38 Dose: 75 mg Documented by: Docusate Sodium (Docusate Sodium 100 Mg Cap) 100 mg PO BID PRN PRN Reason: Constipation Heparin Sodium (Porcine) (Heparin Sodium 5,000 Units/Ml Vial) 5,000 units SUBCUT Q8H [facility] Last Admin: 02/07/21 04:41 Dose: 5,000 units Documented by: Sodium Chloride (Normal Saline) 1,000 mls @ 50 mls/hr IV ASDIRECTED [facility] Last Admin: 02/06/21 20:24 Dose: 50 mls/hr Documented by: Ceftriaxone Sodium 1 gm/ (Sodium Chloride) 100 mls @ 200 mls/hr IV Q24H [facility] Insulin Glargine (Insulin Glarg,Human.Rec.Analog 100 Unit/Ml) 46 unit SUBCUT BEDTIME [facility] Last Admin: 02/06/21 21:37 Dose: 46 units Documented by: Insulin Human Regular (Insulin Regular, Human 100 Units/Ml 3 Ml Vial) 0 unit SUBCUT TIDPC [facility]; Protocol Last Admin: 02/07/21 08:42 Dose: 6 unit Documented by: Lisinopril (Lisinopril 20 Mg Tab) 20 mg PO DAILY [facility] Last Admin: 02/07/21 08:38 Dose: 20 mg Documented by: Loratadine (Loratadine 10 Mg Tab) 10 mg PO DAILY [facility] Last Admin: 02/07/21 08:40 Dose: 10 mg Documented by: Magnesium Oxide (Magnesium Oxide 400 Mg Tab) 400 mg PO DAILY [facility] Last Admin: 02/07/21 08:38 Dose: 400 mg Documented by: Metoprolol Succinate (Metoprolol Succinate 50 Mg Tab.Er) 50 mg PO DAILY [facility] Last Admin: 02/07/21 08:39 Dose: 50 mg Documented by: Morphine Sulfate (Morphine 2 Mg/Ml Syringe) 2 mg IVPUSH Q2H PRN PRN Reason: Pain (severe 7-10) Stop: 02/07/21 17:16 Ondansetron HCl (Ondansetron 4 Mg Tab.Dis) 4 mg PO Q4H PRN PRN Reason: nausea, able to take PO Oxycodone HCl (Oxycodone 5 Mg Tab) 5 mg PO Q4H PRN PRN Reason: Pain (moderate 4-6) Last Admin: 02/07/21 07:24 Dose: 5 mg Documented by: Prednisone (Prednisone 20 Mg Tab) 40 mg PO WITHBREAKFAST [facility] Last Admin: 02/07/21 07:24 Dose: 40 mg Documented by: Rosuvastatin Calcium (Rosuvastatin 10 Mg Tab) 5 mg PO DAILY [facility] Last Admin: 02/07/21 08:40 Dose: 5 mg Documented by: Sertraline HCl (Sertraline 50 Mg Tab) 100 mg PO DAILY [facility] Last Admin: 02/07/21 08:39 Dose: 100 mg Documented by: Temazepam (Temazepam 15 Mg Cap) 15 mg PO BEDTIME PRN PRN Reason: Sleep Discontinued Medications Cholecalciferol (Cholecalciferol (Vitamin D3) 5,000 Unit Tab) 5,000 unit PO DAILY [facility] Heparin Sodium (Porcine) (Heparin Sodium 5,000 Units/Ml Vial) 5,000 units SUBCUT Q8H [facility] Last Admin: 02/07/21 02:17 Dose: Not Given Documented by: Ceftriaxone Sodium 1 gm/ (Sodium Chloride) 100 mls @ 200 mls/hr IV ONETIME ONE Stop: 02/06/21 16:56 Last Admin: 02/06/21 17:03 Dose: 200 mls/hr Documented by: Ceftriaxone Sodium 1 gm/ (Sodium Chloride) 100 mls @ 200 mls/hr IV Q24H [facility] Sodium Chloride (Normal Saline) 100 mls @ 60 mls/hr IV ASDIRECTED [facility] Last Admin: 02/06/21 18:16 Dose: 60 mls/hr Documented by: Iopamidol (Iopamidol 755 Mg/Ml 100 Ml Bottle) 100 ml IVPUSH ONETIME ONE Stop: 02/06/21 18:11 Last Admin: 02/06/21 18:16 Dose: 100 ml Documented by: Metformin HCl (Metformin 500 Mg Tab) 500 mg PO BIDMEALS NAZIA Methylprednisolone Sodium Succinate (Methylprednisolone Sodium Succinate 125 Mg/2 Ml Sdv) 125 mg IVPUSH ONETIME ONE Stop: 02/06/21 16:28 Last Admin: 02/06/21 17:03 Dose: 125 mg Documented by: Sodium Chloride (Sodium Chloride 0.9% 10 Ml Syringe) 10 ml FLUSH ONETIME PRN PRN Reason: Keep Vein Open Last Admin: 02/06/21 18:16 Dose: 10 ml Documented by: - Exam Quality Assessment: Supplemental Oxygen General: Alert, Oriented, Cooperative Neck: Supple Lungs: Clear to Auscultation, Decreased Breath Sounds, Crackles Cardiovascular: Regular Rate, Regular Rhythm GI/Abdominal Exam: Soft, Non-Tender, No Distention Back Exam: Normal Inspection Extremities: Normal Inspection Skin: Warm Neurological: No New Focal Deficit Psy/Mental Status: Alert, Normal Affect, Normal Mood - Patient Data Lab Results Last 24 hrs: Laboratory Results - last 24 hr 02/06/21 02/06/21 02/06/21 Range/Units 14:50 14:50 14:50 WBC 10.77 H (3.98-10.04) K/mm3 RBC 4.58 (3.98-5.22) M/mm3 Hgb 12.3 (11.2-15.7) gm/dl Hct 38.4 (34.1-44.9) % MCV 83.8 (79.4-94.8) fl MCH 26.9 (25.6-32.2) pg MCHC 32.0 L (32.2-35.5) g/dl RDW Std Deviation 49.1 H (36.4-46.3) fL Plt Count 280 D (182-369) K/mm3 MPV 10.6 (9.4-12.3) fl Neut % (Auto) 78.9 H (34.0-71.1) % Lymph % (Auto) 9.9 L (19.3-51.7) % Edmunds % (Auto) 7.8 (4.7-12.5) % Eos % (Auto) 2.5 (0.7-5.8) Baso % (Auto) 0.5 (0.1-1.2) % Neut # (Auto) 8.50 H (1.56-6.13) K/mm3 Lymph # (Auto) 1.07 L (1.18-3.74) K/mm3 Edmunds # (Auto) 0.84 H (0.24-0.36) K/mm3 Eos # (Auto) 0.27 (0.04-0.36) K/mm3 Baso # (Auto) 0.05 (0.01-0.08) K/mm3 D-Dimer, Quantitative 4.12 H (0.19-0.50) mg/L Sodium 144 (136-145) mEq/L Potassium 4.3 (3.5-5.1) mEq/L Chloride 107 (98-107) mEq/L Carbon Dioxide 24 (21-32) mEq/L Anion Gap 17.3 H (5-15) BUN 42 H (7-18) mg/dL Creatinine 1.4 H (0.55-1.02) mg/dL Est Cr Clr Drug Dosing 33.65 mL/min Estimated GFR (MDRD) 37 (>60) mL/min BUN/Creatinine Ratio 30.0 H (14-18) Glucose 155 H (70-99) mg/dL POC Glucose (70-99) mg/dL Calcium 9.3 (8.5-10.1) mg/dL Magnesium 1.9 (1.8-2.4) mg/dL Total Bilirubin 0.4 (0.2-1.0) mg/dL AST 18 (15-37) U/L ALT 24 (14-59) U/L Alkaline Phosphatase 61 (46-116) U/L Troponin I (0.00-0.056) ng/mL C-Reactive Protein 9.2 H* (<1.0) mg/dL Total Protein 6.9 (6.4-8.2) g/dl Albumin 2.6 L (3.4-5.0) g/dl Globulin 4.3 gm/dL Albumin/Globulin Ratio 0.6 L (1-2) Urine Color (Yellow) Urine Appearance (Clear) Urine pH (5.0-8.0) Ur Specific Alexander (1.005-1.030) Urine Protein (Negative) Urine Glucose (UA) (Negative) Urine Ketones (Negative) Urine Occult Blood (Negative) Urine Nitrite (Negative) Urine Bilirubin (Negative) Urine Urobilinogen (0.2-1.0) Ur Leukocyte Esterase (Negative) Urine RBC (0-5) /hpf Urine WBC (0-5) /hpf Urine WBC Clumps (NOT SEEN) /hpf Ur Epithelial Cells (0-5) /hpf Urine Bacteria (FEW) /hpf Urine Mucus (FEW) /hpf 02/06/21 02/06/21 02/06/21 Range/Units 14:50 16:15 20:29 WBC (3.98-10.04) K/mm3 RBC (3.98-5.22) M/mm3 Hgb (11.2-15.7) gm/dl Hct (34.1-44.9) % MCV (79.4-94.8) fl MCH (25.6-32.2) pg MCHC (32.2-35.5) g/dl RDW Std Deviation (36.4-46.3) fL Plt Count (182-369) K/mm3 MPV (9.4-12.3) fl Neut % (Auto) (34.0-71.1) % Lymph % (Auto) (19.3-51.7) % Edmunds % (Auto) (4.7-12.5) % Eos % (Auto) (0.7-5.8) Baso % (Auto) (0.1-1.2) % Neut # (Auto) (1.56-6.13) K/mm3 Lymph # (Auto) (1.18-3.74) K/mm3 Edmunds # (Auto) (0.24-0.36) K/mm3 Eos # (Auto) (0.04-0.36) K/mm3 Baso # (Auto) (0.01-0.08) K/mm3 D-Dimer, Quantitative (0.19-0.50) mg/L Sodium (136-145) mEq/L Potassium (3.5-5.1) mEq/L Chloride (98-107) mEq/L Carbon Dioxide (21-32) mEq/L Anion Gap (5-15) BUN (7-18) mg/dL Creatinine (0.55-1.02) mg/dL Est Cr Clr Drug Dosing mL/min Estimated GFR (MDRD) (>60) mL/min BUN/Creatinine Ratio (14-18) Glucose (70-99) mg/dL POC Glucose 237 H (70-99) mg/dL Calcium (8.5-10.1) mg/dL Magnesium (1.8-2.4) mg/dL Total Bilirubin (0.2-1.0) mg/dL AST (15-37) U/L ALT (14-59) U/L Alkaline Phosphatase (46-116) U/L Troponin I < 0.017 (0.00-0.056) ng/mL C-Reactive Protein (<1.0) mg/dL Total Protein (6.4-8.2) g/dl Albumin (3.4-5.0) g/dl Globulin gm/dL Albumin/Globulin Ratio (1-2) Urine Color Yellow (Yellow) Urine Appearance Clear (Clear) Urine pH 5.5 (5.0-8.0) Ur Specific Alexander 1.020 (1.005-1.030) Urine Protein Negative (Negative) Urine Glucose (UA) Negative (Negative) Urine Ketones Negative (Negative) Urine Occult Blood Trace-lysed H (Negative) Urine Nitrite Positive H (Negative) Urine Bilirubin Negative (Negative) Urine Urobilinogen 0.2 (0.2-1.0) Ur Leukocyte Esterase 1+ H (Negative) Urine RBC 0-5 (0-5) /hpf Urine WBC 5-10 H (0-5) /hpf Urine WBC Clumps Few (NOT SEEN) /hpf Ur Epithelial Cells 0-5 (0-5) /hpf Urine Bacteria Many H (FEW) /hpf Urine Mucus Not seen (FEW) /hpf 02/07/21 02/07/21 02/07/21 Range/Units 06:12 06:12 06:12 WBC 6.61 (3.98-10.04) K/mm3 RBC 4.26 (3.98-5.22) M/mm3 Hgb 11.6 (11.2-15.7) gm/dl Hct 36.3 (34.1-44.9) % MCV 85.2 (79.4-94.8) fl MCH 27.2 (25.6-32.2) pg MCHC 32.0 L (32.2-35.5) g/dl RDW Std Deviation 48.7 H (36.4-46.3) fL Plt Count 236 (182-369) K/mm3 MPV 10.2 (9.4-12.3) fl Neut % (Auto) 87.9 H (34.0-71.1) % Lymph % (Auto) 9.4 L (19.3-51.7) % Edmunds % (Auto) 1.7 L (4.7-12.5) % Eos % (Auto) 0.2 L (0.7-5.8) Baso % (Auto) 0.2 (0.1-1.2) % Neut # (Auto) 5.82 (1.56-6.13) K/mm3 Lymph # (Auto) 0.62 L (1.18-3.74) K/mm3 Edmunds # (Auto) 0.11 L (0.24-0.36) K/mm3 Eos # (Auto) 0.01 L (0.04-0.36) K/mm3 Baso # (Auto) 0.01 (0.01-0.08) K/mm3 D-Dimer, Quantitative 4.02 H (0.19-0.50) mg/L Sodium 143 (136-145) mEq/L Potassium 5.2 H (3.5-5.1) mEq/L Chloride 108 H (98-107) mEq/L Carbon Dioxide 25 (21-32) mEq/L Anion Gap 15.2 H (5-15) BUN 33 H (7-18) mg/dL Creatinine 1.2 H (0.55-1.02) mg/dL Est Cr Clr Drug Dosing 39.25 mL/min Estimated GFR (MDRD) 44 (>60) mL/min BUN/Creatinine Ratio 27.5 H (14-18) Glucose 273 H (70-99) mg/dL POC Glucose (70-99) mg/dL Calcium 8.8 (8.5-10.1) mg/dL Magnesium 1.7 L (1.8-2.4) mg/dL Total Bilirubin 0.3 (0.2-1.0) mg/dL AST 14 L (15-37) U/L ALT 23 (14-59) U/L Alkaline Phosphatase 64 (46-116) U/L Troponin I (0.00-0.056) ng/mL C-Reactive Protein 5.2 H* (<1.0) mg/dL Total Protein 6.6 (6.4-8.2) g/dl Albumin 2.5 L (3.4-5.0) g/dl Globulin 4.1 gm/dL Albumin/Globulin Ratio 0.6 L (1-2) Urine Color (Yellow) Urine Appearance (Clear) Urine pH (5.0-8.0) Ur Specific Alexander (1.005-1.030) Urine Protein (Negative) Urine Glucose (UA) (Negative) Urine Ketones (Negative) Urine Occult Blood (Negative) Urine Nitrite (Negative) Urine Bilirubin (Negative) Urine Urobilinogen (0.2-1.0) Ur Leukocyte Esterase (Negative) Urine RBC (0-5) /hpf Urine WBC (0-5) /hpf Urine WBC Clumps (NOT SEEN) /hpf Ur Epithelial Cells (0-5) /hpf Urine Bacteria (FEW) /hpf Urine Mucus (FEW) /hpf 02/07/21 Range/Units 06:14 WBC (3.98-10.04) K/mm3 RBC (3.98-5.22) M/mm3 Hgb (11.2-15.7) gm/dl Hct (34.1-44.9) % MCV (79.4-94.8) fl MCH (25.6-32.2) pg MCHC (32.2-35.5) g/dl RDW Std Deviation (36.4-46.3) fL Plt Count (182-369) K/mm3 MPV (9.4-12.3) fl Neut % (Auto) (34.0-71.1) % Lymph % (Auto) (19.3-51.7) % Edmunds % (Auto) (4.7-12.5) % Eos % (Auto) (0.7-5.8) Baso % (Auto) (0.1-1.2) % Neut # (Auto) (1.56-6.13) K/mm3 Lymph # (Auto) (1.18-3.74) K/mm3 Edmunds # (Auto) (0.24-0.36) K/mm3 Eos # (Auto) (0.04-0.36) K/mm3 Baso # (Auto) (0.01-0.08) K/mm3 D-Dimer, Quantitative (0.19-0.50) mg/L Sodium (136-145) mEq/L Potassium (3.5-5.1) mEq/L Chloride (98-107) mEq/L Carbon Dioxide (21-32) mEq/L Anion Gap (5-15) BUN (7-18) mg/dL Creatinine (0.55-1.02) mg/dL Est Cr Clr Drug Dosing mL/min Estimated GFR (MDRD) (>60) mL/min BUN/Creatinine Ratio (14-18) Glucose (70-99) mg/dL POC Glucose 262 H (70-99) mg/dL Calcium (8.5-10.1) mg/dL Magnesium (1.8-2.4) mg/dL Total Bilirubin (0.2-1.0) mg/dL AST (15-37) U/L ALT (14-59) U/L Alkaline Phosphatase (46-116) U/L Troponin I (0.00-0.056) ng/mL C-Reactive Protein (<1.0) mg/dL Total Protein (6.4-8.2) g/dl Albumin (3.4-5.0) g/dl Globulin gm/dL Albumin/Globulin Ratio (1-2) Urine Color (Yellow) Urine Appearance (Clear) Urine pH (5.0-8.0) Ur Specific Alexander (1.005-1.030) Urine Protein (Negative) Urine Glucose (UA) (Negative) Urine Ketones (Negative) Urine Occult Blood (Negative) Urine Nitrite (Negative) Urine Bilirubin (Negative) Urine Urobilinogen (0.2-1.0) Ur Leukocyte Esterase (Negative) Urine RBC (0-5) /hpf Urine WBC (0-5) /hpf Urine WBC Clumps (NOT SEEN) /hpf Ur Epithelial Cells (0-5) /hpf Urine Bacteria (FEW) /hpf Urine Mucus (FEW) /hpf Result Diagrams: 02/07/21 06:12 02/07/21 06:12 Sepsis Event Note - Evaluation Sepsis Screening Result: No Definite Risk - Focused Exam Vital Signs: Vital Signs Temp Pulse Resp BP Pulse Ox Pulse Ox 02/07/21 08:41 97 02/07/21 08:39 71 138/89 02/07/21 08:38 138/89 02/07/21 07:41 97.7 F 71 18 138/89 98 02/07/21 07:13 97 02/07/21 06:21 92 L 02/07/21 04:40 97.5 F 69 20 106/80 98 02/07/21 00:19 97.7 F 68 20 137/83 95 - Problem List Review Problem List Initiated/Reviewed/Updated: Yes - Assessment Assessment:: (1) Acute respiratory failure SNOMED Code(s): 13839760 ICD Code: J96.00 - ACUTE RESPIRATORY FAILURE, UNSP W HYPOXIA OR HYPERCAPNIA Status: Acute Priority: High Current Visit: Yes Qualifiers: Respiratory failure complication: hypoxia Qualified Code(s): J96.01 - Acute respiratory failure with hypoxia 02/07 cont duonebs, o2, now reduced 6 liters to 5 liters. Cont vit d , zinc. CRP has reduced from 9.2 to 5.2, has hx of completing remdesmivir and dexameth asone treatment, dc home and returned with shortness of breath, increae o2 requirements. Still has elevated d dimer with negative CTA. still mild left shift. Cont hilar adenopathy and signs ofd covid pneumonia on CTA. (2) Pneumonitis, hypersensitivity SNOMED Code(s): 92463447 ICD Code: J67.9 - HYPERSENSITIVITY PNEUMONITIS DUE TO UNSPECIFIED ORGANIC DUST Status: Acute Current Visit: Yes (3) COVID-19 SNOMED Code(s): 144952794 ICD Code: U07.1 - COVID-19 Status: Acute Priority: High Current Visit: Yes 02/07 appears more like pneumonitis vs superimpossed infection- cont with prednisone 40 mg oral daily. Rocephin cont iv 1 gram daily. (4) Chronic renal disease, stage 3, moderately decreased glomerular filtration rate (GFR) between 30-59 mL/min/1.73 square meter SNOMED Code(s): 527746405 ICD Code: N18.30 - CHRONIC KIDNEY DISEASE, STAGE 3 UNSPECIFIED Status: Chronic Priority: High Current Visit: Yes Qualifiers: Chronic kidney disease stage 3 subtype: stage 3b (GFR 30-44) Qualified Code(s): N18.32 - Chronic kidney disease, stage 3b 02/07/21 improved acute renal insufficiencies from 1.4 to 1.2. she is having elevated glucose and will restart the metformin today (5) Hypoxia SNOMED Code(s): 900890669 ICD Code: R09.02 - HYPOXEMIA Status: Acute Priority: High Current Visi t: Yes Problem List Initiated/Reviewed/Updated: Yes Orders Last 24hrs: 02/07 mild reduction from 6liters to 5 liters. 6. UTI- 02/07 positive, covered with rocephin, reduced wbc to normal today 7. hypomagnesium- 02/07 will repeat mag level in am and ocnt with daily oral mag 400mg 8. HLD- cont rosvustatin 9. insomnia- cont restroil 10. Hypertension- cont lisinopril 11. right calf pain- elevated ddimer, cta negative, doppler ordered, cont on plavix and heparin - Plan Plan:: 70yof admitted recent covid admission now secondary hypersensitivity pneumonitis vs CAP vs Covid pneumonia. Covid isolation. Rocephin 1 g IV every 24 hours 2/2 possibility of superimposed infection, gently hydrated ns 75 mL/h, prednisone 40 mg p.o. daily. D-dimer being elevated, Metformin held. , diabetic diet as tolerated, Lantus. ,medium SSI. A/C heparin 5000 units q8 hours, Plavix will also be continued. DuoNeb's ,oxygen support, saturations between 90 and 92%. Encouraged ambulate, inpatient on telemetry and she should be appropriate for discharge in 1 to 2 days.
--- NOTE | 2021-02-07 12:19 | US ---
Bilateral venous ultrasound: Duplex and color Doppler evaluation was obtained of the right and left common femoral, proximal greater saphenous, superficial femoral, popliteal, posterior tibial and peroneal veins. Comparison: No prior venous imaging is available. Findings: Peroneal vein on the right side is not well seen which is suspicious for small area of thrombosis. Other veins show normal phasic flow, augmentation and compression. Clot is seen within the posterior calf within a superficial vein. This is compatible with thrombophlebitis. Impression: 1. Nonvisualized right peroneal vein which is suspicious for a small area of deep venous thrombosis. 2. Thrombophlebitis within the posterior right calf. 3. No other findings of deep venous thrombosis are seen within either the right or left lower extremities. Diagnostic code #3
[2021-02-07] MEDS ORDERED: Furosemide 20 MG/2 ML VIAL IVPUSH ONE (14:30)
[2021-02-07] MEDS: metFORMIN 500 MG Tab PO SCH (16:44)
[2021-02-07] MEDS: Sodium Chloride 0.9% 1,000 ML IV SCH (16:44)
[2021-02-07] MEDS ORDERED: cefTRIAXone 1 GM in Sodium Chloride 0.9% 100 ML IV SCH (18:00)
[2021-02-07] MEDS: cefTRIAXone 1 GM in Sodium Chloride 0.9% 100 ML IV SCH (18:08)
[2021-02-07] MEDS: Apixaban 5 MG Tab PO SCH (21:12)
[2021-02-07] MEDS: Insulin Glarg,Human.Rec.Analog 100 Unit/ML SUBCUT SCH (21:13)
[2021-02-08] MEDS: metFORMIN 500 MG Tab PO SCH ×2 (06:35→18:11)
[2021-02-08] MEDS: predniSONE 20 MG Tab PO SCH (06:35)
--- NOTE | 2021-02-08 08:42 | PCM.PN ---
- General Info Date of Service: 02/08/21 Admission Dx/Problem (Free Text): COVID-19 positive Subjective Update: Patient feels that she is not strong enough to be able to go home on her own y et. She does normally live at home alone. She plans to go home and stay with a friend for several days or weeks until she fully recovers. Discussed the DVT right lower leg and she fully understands. Functional Status: Reports: Pain Controlled, Tolerating Diet, Ambulating (We akness, balance issue, mild lightheadedness with ambulation) - Review of Systems General: Reports: Weakness, Fatigue HEENT: Reports: No Symptoms Pulmonary: Reports: Shortness of Breath (Mild with resolved cough and sputum) Cardiovascular: Reports: No Symptoms Gastrointestinal: Reports: No Symptoms Genitourinary: Reports: No Symptoms Musculoskeletal: Reports: No Symptoms Skin: Reports: No Symptoms Neurological: Reports: No Symptoms Psychiatric: Reports: No Symptoms - Patient Data Vitals - Most Recent: Last Vital Signs Temp 98.2 F 02/08/21 07:33 Pulse 62 02/08/21 07:33 Resp 20 02/08/21 07:33 BP 118/87 02/08/21 07:33 Pulse Ox 98 02/08/21 07:33 Weight - Most Recent: 263 lb 8 oz I&O - Last 24 Hours: Intake & Output 02/07/21 02/08/21 02/08/21 22:59 06:59 14:59 Intake Total 1420 1878 Output Total 250 1500 Balance 1170 378 Lab Results Last 24 Hours: Laboratory Results - last 24 hr 02/07/21 02/07/21 02/07/21 Range/Units 06:12 10:07 10:40 POC Glucose 321 H (70-99) mg/dL Troponin I < 0.017 (0.00-0.056) ng/mL NT-Pro-B Natriuret Pep 324 H (0-125) pg/mL 02/07/21 02/07/21 02/08/21 Range/Units 16:06 21:10 06:33 POC Glucose 300 H 235 H 115 H (70-99) mg/dL Troponin I (0.00-0.056) ng/mL NT-Pro-B Natriuret Pep (0-125) pg/mL Med Orders - Current: Current Medications Albuterol (Albuterol 6.7 Gm Inhaler) 0 gm INH Q4H PRN PRN Reason: SOB/WHEEZING Last Admin: 02/07/21 20:20 Dose: 2 puff Documented by: Albuterol/Ipratropium (Albuterol/Ipratropium 3.0-0.5 Mg/3 Ml Neb Soln) 3 ml NEB Q4H PRN PRN Reason: Shortness Of Breath/wheezing Alogliptin Benzoate (Alogliptin 12.5 Mg Tab) 12.5 mg PO DAILY [facility] Last Admin: 02/07/21 08:40 Dose: 12.5 mg Documented by: Apixaban (Apixaban 5 Mg Tab) 10 mg PO BID [facility] Last Admin: 02/07/21 21:12 Dose: 10 mg Documented by: Cholecalciferol (Cholecalciferol (Vitamin D3) 5,000 Unit Cap) 5,000 unit PO DAILY [facility] Last Admin: 02/07/21 08:40 Dose: 5,000 unit Documented by: Clopidogrel Bisulfate (Clopidogrel 75 Mg Tab) 75 mg PO DAILY [facility] Last Admin: 02/07/21 08:38 Dose: 75 mg Documented by: Docusate Sodium (Docusate Sodium 100 Mg Cap) 100 mg PO BID PRN PRN Reason: Constipation Sodium Chloride (Normal Saline) 1,000 mls @ 50 mls/hr IV ASDIRECTED [facility] Last Admin: 02/07/21 16:44 Dose: 50 mls/hr Documented by: Ceftriaxone Sodium 1 gm/ (Sodium Chloride) 100 mls @ 200 mls/hr IV Q24H [facility] Last Admin: 02/07/21 18:08 Dose: 200 mls/hr Documented by: Insulin Glargine (Insulin Glarg,Human.Rec.Analog 100 Unit/Ml) 46 unit SUBCUT BEDTIME [facility] Last Admin: 02/07/21 21:13 Dose: 46 unit Documented by: Insulin Human Regular (Insulin Regular, Human 100 Units/Ml 3 Ml Vial) 0 unit SUBCUT TIDPC [facility]; Protocol Last Admin: 02/07/21 18:08 Dose: 8 unit Documented by: Lisinopril (Lisinopril 20 Mg Tab) 20 mg PO DAILY [facility] Last Admin: 02/07/21 08:38 Dose: 20 mg Documented by: Loratadine (Loratadine 10 Mg Tab) 10 mg PO DAILY [facility] Last Admin: 02/07/21 08:40 Dose: 10 mg Documented by: Magnesium Oxide (Magnesium Oxide 400 Mg Tab) 400 mg PO DAILY [facility] Last Admin: 02/07/21 08:38 Dose: 400 mg Documented by: Metformin HCl (Metformin 500 Mg Tab) 500 mg PO BIDMEALS [facility] Last Admin: 02/08/21 06:35 Dose: 500 mg Documented by: Metoprolol Succinate (Metoprolol Succinate 50 Mg Tab.Er) 50 mg PO DAILY [facility] Last Admin: 02/07/21 08:39 Dose: 50 mg Documented by: Ondansetron HCl (Ondansetron 4 Mg Tab.Dis) 4 mg PO Q4H PRN PRN Reason: nausea, able to take PO Oxycodone HCl (Oxycodone 5 Mg Tab) 5 mg PO Q4H PRN PRN Reason: Pain (moderate 4-6) Last Admin: 02/07/21 14:42 Dose: 5 mg Documented by: Prednisone (Prednisone 20 Mg Tab) 40 mg PO WITHBREAKFAST [facility] Last Admin: 02/08/21 06:35 Dose: 40 mg Documented by: Rosuvastatin Calcium (Rosuvastatin 10 Mg Tab) 5 mg PO DAILY [facility] Last Admin: 02/07/21 08:40 Dose: 5 mg Documented by: Sertraline HCl (Sertraline 50 Mg Tab) 100 mg PO DAILY [facility] Last Admin: 02/07/21 08:39 Dose: 100 mg Documented by: Temazepam (Temazepam 15 Mg Cap) 15 mg PO BEDTIME PRN PRN Reason: Sleep Zinc Sulfate (Zinc Sulfate 220 Mg Cap) 220 mg PO DAILY [facility] Discontinued Medications Cholecalciferol (Cholecalciferol (Vitamin D3) 5,000 Unit Tab) 5,000 unit PO DAILY [facility] Furosemide (Furosemide 20 Mg/2 Ml Vial) 20 mg IVPUSH ONETIME ONE Stop: 02/07/21 14:31 Last Admin: 02/07/21 14:42 Dose: 20 mg Documented by: Heparin Sodium (Porcine) (Heparin Sodium 5,000 Units/Ml Vial) 5,000 units SUBCUT Q8H [facility] Last Admin: 02/07/21 02:17 Dose: Not Given Documented by: Heparin Sodium (Porcine) (Heparin Sodium 5,000 Units/Ml Vial) 5,000 units SUBCUT Q8H [facility] Last Admin: 02/07/21 04:41 Dose: 5,000 units Documented by: Ceftriaxone Sodium 1 gm/ (Sodium Chloride) 100 mls @ 200 mls/hr IV ONETIME ONE Stop: 02/06/21 16:56 Last Admin: 02/06/21 17:03 Dose: 200 mls/hr Documented by: Ceftriaxone Sodium 1 gm/ (Sodium Chloride) 100 mls @ 200 mls/hr IV Q24H [facility] Sodium Chloride (Normal Saline) 100 mls @ 60 mls/hr IV ASDIRECTED [facility] Last Admin: 02/06/21 18:16 Dose: 60 mls/hr Documented by: Insulin Glargine (Insulin Glarg,Human.Rec.Analog 100 Unit/Ml) 46 unit SUBCUT BEDTIME [facility] Last Admin: 02/06/21 21:37 Dose: 46 units Documented by: Iopamidol (Iopamidol 755 Mg/Ml 100 Ml Bottle) 100 ml IVPUSH ONETIME ONE Stop: 02/06/21 18:11 Last Admin: 02/06/21 18:16 Dose: 100 ml Documented by: Metformin HCl (Metformin 500 Mg Tab) 500 mg PO BIDMEALS [facility] Methylprednisolone Sodium Succinate (Methylprednisolone Sodium Succinate 125 Mg/2 Ml Sdv) 125 mg IVPUSH ONETIME ONE Stop: 02/06/21 16:28 Last Admin: 02/06/21 17:03 Dose: 125 mg Documented by: Morphine Sulfate (Morphine 2 Mg/Ml Syringe) 2 mg IVPUSH Q2H PRN PRN Reason: Pain (severe 7-10) Stop: 02/07/21 17:16 Sodium Chloride (Sodium Chloride 0.9% 10 Ml Syringe) 10 ml FLUSH ONETIME PRN PRN Reason: Keep Vein Open Last Admin: 02/06/21 18:16 Dose: 10 ml Documented by: - Exam General: Alert, Oriented, Cooperative, No Acute Distress HEENT: Pupils Equal, Pupils Reactive, EOMI Neck: Supple, Trachea Midline Lungs: Decreased Breath Sounds, Crackles (Cough crackles that clear with cough. On 4 L) Cardiovascular: Regular Rate, Regular Rhythm GI/Abdominal Exam: Normal Bowel Sounds, Soft, Non-Tender (Female) Exam: Normal External Exam, Normal Speculum Exam Back Exam: Normal Inspection, Full Range of Motion Extremities: Normal Inspection, Normal Range of Motion Skin: Warm, Dry Neurological: No New Focal Deficit Psy/Mental Status: Alert, Normal Affect, Normal Mood - Patient Data Lab Results Last 24 hrs: Laboratory Results - last 24 hr 02/07/21 02/07/21 02/07/21 Range/Units 06:12 10:07 10:40 POC Glucose 321 H (70-99) mg/dL Troponin I < 0.017 (0.00-0.056) ng/mL NT-Pro-B Natriuret Pep 324 H (0-125) pg/mL 02/07/21 02/07/21 02/08/21 Range/Units 16:06 21:10 06:33 POC Glucose 300 H 235 H 115 H (70-99) mg/dL Troponin I (0.00-0.056) ng/mL NT-Pro-B Natriuret Pep (0-125) pg/mL Result Diagrams: 02/07/21 06:12 02/07/21 06:12 Sepsis Event Note - Evaluation Sepsis Screening Result: No Definite Risk - Focused Exam Vital Signs: Vital Signs Temp Pulse Resp BP Pulse Ox 02/08/21 07:33 98.2 F 62 20 118/87 98 02/08/21 04:41 97.7 F 61 20 110/46 L 93 L 02/07/21 23:33 98.1 F 69 20 108/56 L 94 L 02/07/21 21:19 98.1 F 74 22 H 115/62 96 - Problem List Review Problem List Initiated/Reviewed/Updated: Yes - My Orders Last 24 Hours: My Active Orders 02/07/21 17:00 metFORMIN [Glucophage] 500 mg PO BIDMEALS 02/07/21 21:00 Apixaban [Eliquis] 10 mg PO BID 02/08/21 09:00 Zinc Sulfate [Zincate] 220 mg PO DAILY 02/08/21 09:36 BMP [BASIC METABOLIC PANEL,BMP] [CHEM] Routine MAGNESIUM [CHEM] Routine 02/08/21 09:37 CBC W/O DIFF,HEMOGRAM [HEME] Routine - Assessment Assessment:: (1) Acute respiratory failure SNOMED Code(s): 64626805 ICD Code: J96.00 - ACUTE RESPIRATORY FAILURE, UNSP W HYPOXIA OR HYPERCAPNIA Status: Acute Priority: High Current Visit: Yes Qualifiers: Respiratory failure complication: hypoxia Qualified Code(s): J96.01 - Acute respiratory failure with hypoxia 02/07 cont duonebs, o2, now reduced 6 liters to 5 liters. Cont vit d , zinc. CRP has reduced from 9.2 to 5.2, has hx of completing remdesmivir and dexamethasone treatment, dc home and returned with shortness of breath, increae o2 requirements. Still has elevated d dimer with negative CTA. still mild left shift. Cont hilar adenopathy and signs ofd covid pneumonia on CTA. 02/08/21 patient has improved to 4 L this morning. We do have an additional dose of Lasix 20 mg IV x1 being given this morning. Patient is reporting hypoxia and lightheadedness with ambulation still. Maciel has remained stable at 4 L at rest. (2) Pneumonitis, hypersensitivity SNOMED Code(s): 56015104 ICD Code: J67.9 - HYPERSENSITIVITY PNEUMONITIS DUE TO UNSPECIFIED ORGANIC DUST Status: Acute Current Visit: Yes 02/08/21 slow improvement with thyroids. With an improvement to 4 L this morning. (3) COVID-19 SNOMED Code(s): 484927945 ICD Code: U07.1 - COVID-19 Status: Acute Priority: High Current Visit: Yes 02/07 appears more like pneumonitis vs superimpossed infection- cont with prednisone 40 mg oral daily. Rocephin cont iv 1 gram daily. 02/08/21 and is slowly improving and looking much more improved this morning. Plan to continue with present regimen and plan for carriage home in 1 to 2 days. (4) Chronic renal disease, stage 3, moderately decreased glomerular filtration rate (GFR) between 30-59 mL/min/1.73 square meter SNOMED Code(s): 684772340 ICD Code: N18.30 - CHRONIC KIDNEY DISEASE, STAGE 3 UNSPECIFIED Status: Chronic Priority: High Current Visit: Yes Qualifiers: Chronic kidney disease stage 3 subtype: stage 3b (GFR 30-44) Qualified Code(s): N18.32 - Chronic kidney disease, stage 3b 02/07/21 improved acute renal insufficiencies from 1.4 to 1.2. she is having elevated glucose and will restart the metformin today 02/08/21 we will get labs in the morning. Good urine output. Leukos levels improved. (5) Hypoxia SNOMED Code(s): 858965967 ICD Code: R09.02 - HYPOXEMIA Status: Acute Priority: High Current Visit: Yes Problem List Initiated/Reviewed/Updated: Yes Orders Last 24hrs: 02/07 mild reduction from 6liters to 5 liters. 02/08/21 no improvement yet has improved to 4 L stable this morning. 6. UTI- 02/07 positive, covered with rocephin, reduced wbc to normal today 02/08 Rocephin. Normalized white blood count yesterday, no symptomatology noted by patient 7. hypomagnesium- 02/07 will repeat mag level in am and ocnt with daily oral mag 400mg 02/08 pending am labs 8. HLD- cont rosvustatin 9. insomnia- cont restroil 10. Hypertension- cont lisinopril 02/08/21 stable 11. right calf pain- elevated ddimer, cta negative, doppler ordered, cont on plavix and heparin 02/08/21 apixaban started 12.Diabetes type 2- 02/08/21 restarted metformin and glucose levels are now well controlled. - Plan Plan:: 70yof admitted recent covid admission now secondary hypersensitivity pneumonitis vs CAP vs Covid pneumonia. Covid isolation. Rocephin 1 g IV every 24 hours 2/2 possibility of superimposed infection, gently hydrated ns 75 mL/h, prednisone 40 mg p.o. daily. D-dimer being elevated, Metformin held. , diabetic diet as tolerated, Lantus. ,medium SSI. A/C heparin 5000 units q8 hours, Plavix will also be continued. DuoNeb's ,oxygen support, saturations between 90 and 92%. Encouraged ambulate, inpatient on telemetry and she should be appropriate for discharge in 1 to 2 days.
[2021-02-08] MEDS: Apixaban 5 MG Tab PO SCH ×2 (09:22→21:11)
[2021-02-08] MEDS: Metoprolol Succinate 50 MG Tab.ER PO SCH (09:22)
[2021-02-08] MEDS: Lisinopril 20 MG Tab PO SCH (09:23)
[2021-02-08] MEDS: Loratadine 10 MG Tab PO SCH (09:23)
[2021-02-08] MEDS: Clopidogrel 75 MG Tab PO SCH (09:23)
[2021-02-08] MEDS: Zinc Sulfate 220 MG Cap PO SCH (09:23)
[2021-02-08] MEDS: Sertraline 50 MG Tab PO SCH (09:23)
[2021-02-08] MEDS: Cholecalciferol (Vitamin D3) 5,000 UNIT Cap PO SCH (09:23)
[2021-02-08] MEDS: Magnesium Oxide 400 MG Tab PO SCH (09:23)
[2021-02-08] MEDS: Insulin Regular, Human 100 Units/ML 3 ML Vial SUBCUT SCH ×3 (09:24→18:12)
[2021-02-08] MEDS: Rosuvastatin 10 MG Tab PO SCH (09:24)
[2021-02-08] MEDS ORDERED: Sodium Chloride 0.65% Nasal Spray 45 ML Bottle NAS PRN (09:50)
[2021-02-08] MEDS: Albuterol 6.7 GM Inhaler INH PRN ×3 (10:18→20:49)
[2021-02-08] MEDS: Sodium Chloride 0.9% 1,000 ML IV SCH (13:47)
[2021-02-08] MEDS ORDERED: Magnesium Sulfate/Water 4 GM in Premix Bag 1 BAG IV ONE (15:00)
[2021-02-08] MEDS: cefTRIAXone 1 GM in Sodium Chloride 0.9% 100 ML IV SCH (18:12)
[2021-02-08] MEDS: Insulin Glarg,Human.Rec.Analog 100 Unit/ML SUBCUT SCH (21:11)
[2021-02-09] MEDS: predniSONE 20 MG Tab PO SCH (06:20)
[2021-02-09] MEDS: metFORMIN 500 MG Tab PO SCH (06:21)
[2021-02-09] MEDS: Apixaban 5 MG Tab PO SCH (08:09)
[2021-02-09] MEDS: Metoprolol Succinate 50 MG Tab.ER PO SCH (08:10)
[2021-02-09] MEDS: Magnesium Oxide 400 MG Tab PO SCH (08:10)
[2021-02-09] MEDS: Loratadine 10 MG Tab PO SCH (08:10)
[2021-02-09] MEDS: Cholecalciferol (Vitamin D3) 5,000 UNIT Cap PO SCH (08:10)
[2021-02-09] MEDS: Rosuvastatin 10 MG Tab PO SCH (08:10)
[2021-02-09] MEDS: Lisinopril 20 MG Tab PO SCH (08:11)
[2021-02-09] MEDS: Zinc Sulfate 220 MG Cap PO SCH (08:11)
[2021-02-09] MEDS: Sertraline 50 MG Tab PO SCH (08:11)
[2021-02-09] MEDS: Clopidogrel 75 MG Tab PO SCH (08:11)
[2021-02-09 08:12] VITALS: BP 134/62; PULSE 61
[2021-02-09] MEDS: Insulin Regular, Human 100 Units/ML 3 ML Vial SUBCUT SCH ×2 (08:12→13:41)
--- NOTE | 2021-02-09 08:43 | PCM.DCSUM1 ---
Discharge Summary - Hospital Course Free Text/Narrative:: (1) Acute respiratory failure SNOMED Code(s): 84824579 ICD Code: J96.00 - ACUTE RESPIRATORY FAILURE, UNSP W HYPOXIA OR HYPERCAPNIA Status: Acute Priority: High Current Visit: Yes Qualifiers: Respiratory failure complication: hypoxia Qualified Code(s): J96.01 - Acute respiratory failure with hypoxia 02/07 cont duonebs, o2, now reduced 6 liters to 5 liters. Cont vit d , zinc. CRP has reduced from 9.2 to 5.2, has hx of completing remdesmivir and dex amethasone treatment, dc home and returned with shortness of breath, increae o2 requirements. Still has elevated d dimer with negative CTA. still mild left shift. Cont hilar adenopathy and signs ofd covid pneumonia on CTA. 02/08/21 patient has improved to 4 L this morning. We do have an additional dose of Lasix 20 mg IV x1 being given this morning. Patient is reporting hypoxia and lightheadedness with ambulation still. Maciel has remained stable at 4 L at rest. 02/09 patient is stable on o2 and will be assessment for home o2 and dc home today with HH and to [facility] with front wheels ed walker (2) Pneumonitis, hypersensitivity SNOMED Code(s): 92101239 ICD Code: J67.9 - HYPERSENSITIVITY PNEUMONITIS DUE TO UNSPECIFIED ORGANIC DUST Status: Acute Current Visit: Yes 02/08/21 slow improvement with thyroids. With an improvement to 4 L this morning. 02/09 tapering dose of steroids (3) COVID-19 SNOMED Code(s): 833302803 ICD Code: U07.1 - COVID-19 Status: Acute Priority: High Current Visit: Yes 02/07 appears more like pneumonitis vs superimpossed infection- cont with prednisone 40 mg oral daily. Rocephin cont iv 1 gram daily. 02/08/21 and is slowly improving and looking much more improved this morning. Plan to continue with present regimen and plan for carriage home in 1 to 2 days. 02/09 stable and tapering dose of steroids for pneumonitits (4) Chronic renal disease, stage 3, moderately decreased glomerular filtration rate (GFR) between 30-59 mL/min/1.73 square meter SNOMED Code(s): 433250247 ICD Code: N18.30 - CHRONIC KIDNEY DISEASE, STAGE 3 UNSPECIFIED Status: Chronic Priority: High Current Visit: Yes Qualifiers: Chronic kidney disease stage 3 subtype: stage 3b (GFR 30-44) Qualified Code(s): N18.32 - Chronic kidney disease, stage 3b 02/07/21 improved acute renal insufficiencies from 1.4 to 1.2. she is having elevated glucose and will restart the metformin today 02/08/21 we will get labs in the morning. Good urine output. Leukos levels improved. 02/09 stable (5) Hypoxia SNOMED Code(s): 255400236 ICD Code: R09.02 - HYPOXEMIA Status: Acute Priority: High Current Visit: Yes Problem List Initiated/Reviewed/Updated: Yes Orders Last 24hrs: 02/07 mild reduction from 6liters to 5 liters. 02/08/21 no improvement yet has improved to 4 L stable this morning. 02/09 stable and being assessed for home o2. will see pcp tomorrow and they will manage weaning from home o2 6. UTI- 02/07 positive, covered with Rocephin, reduced wbc to normal today 02/08 Rocephin. Normalized white blood count yesterday, no symptomatology noted by patient 02/09 today is day three of antibiotics and will need follow up with pcp for likely repeat ua is symptoms return 7. hypomagnesium- 02/07 will repeat mag level in am and ocnt with daily oral mag 400mg 02/08 pending am labs 8. HLD- cont rosvustatin 9. insomnia- cont restroil 10. Hypertension- cont lisinopril 02/08/21 stable 11. right calf pain- elevated ddimer, cta negative, doppler ordered, cont on plavix and heparin 02/08/21 apixaban started 12.Diabetes type 2- 02/08/21 restarted metformin and glucose levels are now well controlled. 02/09/21 stable, no med changes Brief History: 70yof admitted recent covid admission now secondary hypersensitivity pneumonitis vs CAP vs Covid pneumonia. Covid isolation and new UTI found Diagnosis: Stroke: No Modified [place] Scale: No Signif.Disability Despite Sympt.Able to Carry Out Usual Act./Duties Modified [place] Scale Score: 1 - Discharge Data Discharge Date: 02/09/21 Discharge Disposition: Home, Self-Care 01 Condition: Good - Referral to Home Health Date of Face to Face Encounter: 02/09/21 Primary Care Physician: Kobi Parrish MD Skilled Need: physical and occupational, front wheeled walker - Patient Summary/Data Consults: Consultations 02/08/21 10:59 Consult to Physical Therapy [PT Evaluation and Treatment] [CONS] Routine 02/08/21 11:00 Consult to Occupational Therapy [OT Evaluation and Treatment] [CONS] Routine Recommended Follow-up Testing/Procedures: pcp appt tomorrow saturday already arranged - Patient Instructions Diet: Heart Healthy Diet Activity: As Tolerated Driving: May Drive Today Showering/Bathing: May Shower Notify Provider of: Fever, Increased Pain, Nausea and/or Vomiting Other/Special Instructions: worsening shortness of breath - Discharge Plan *PRESCRIPTION DRUG MONITORING PROGRAM REVIEWED*: Not Applicable *COPY OF PRESCRIPTION DRUG MONITORING REPORT IN PATIENT MERCEDES: Not Applicable Home Medications: Home Meds Albuterol Sulfate [Proair Respiclick] 2 puff IH Q6H PRN 10/15/18 [History] Calcium Carbonate [Calcium] 1,200 mg PO DAILY 10/15/18 [History] Clopidogrel [Plavix] 75 mg PO DAILY 10/15/18 [History] Fexofenadine [Alejandra] 180 mg PO DAILY 10/15/18 [History] Insulin Glargine,Hum.Rec.Anlog [Toushayy Solostar] 58 unit SQ BEDTIME 10/15/18 [History] Metoprolol Succinate [Toprol XL 50mg] 50 mg PO DAILY 10/15/18 [History] Quinapril [Accupril] 20 mg PO DAILY 10/15/18 [History] Rosuvastatin [Crestor] 5 mg PO DAILY 10/15/18 [History] Saxagliptin HCl [Onglyza] 5 mg PO DAILY 10/15/18 [History] Sertraline [Zoloft] 100 mg PO DAILY 10/15/18 [History] metFORMIN [Glucophage] 500 mg PO BIDMEALS 10/15/18 [History] Magnesium Oxide [Magnesium] 400 mg PO DAILY 12/31/18 [History] Cholecalciferol (Vitamin D3) [Vitamin D3] 5,000 unit PO DAILY 03/27/19 [History] Biotin/Keratin [Biotin Plus Keratin Tablet] 3 caplet PO DAILY 02/06/21 [History] Oxygen Therapy Mode: Nasal Cannula Oxygen Flow Rate (L/min): 3 Maintain SPO2% less than: 92 Maintain SpO2% greater than: 88 Patient Handouts: COVID-19 Frequently Asked Questions, COVID-19, Apixaban oral tablets Forms: ED Department Discharge Referrals: Kobi Parrish MD [Primary Care Provider] - - Discharge Summary/Plan Comment DC Time >30 min.: Yes Total # of Minutes for Discharge Time: 36min - Patient Data Vitals - Most Recent: Last Vital Signs Temp 97.9 F 02/09/21 03:16 Pulse 61 02/09/21 08:10 Resp 24 H 02/09/21 03:16 BP 134/62 02/09/21 08:11 Pulse Ox 97 02/09/21 03:16 Weight - Most Recent: 260 lb 14.4 oz I&O - Last 24 hours: Intake & Output 02/08/21 02/09/21 02/09/21 22:59 06:59 14:59 Intake Total 2000 500 Output Total 1200 800 Balance 800 -300 Lab Results - Last 24 hrs: Laboratory Results - last 24 hr 02/08/21 02/08/21 02/08/21 Range/Units 09:37 10:00 10:31 WBC 10.76 H (3.98-10.04) K/mm3 RBC 4.22 (3.98-5.22) M/mm3 Hgb 11.5 (11.2-15.7) gm/dl Hct 36.1 (34.1-44.9) % MCV 85.5 (79.4-94.8) fl MCH 27.3 (25.6-32.2) pg MCHC 31.9 L (32.2-35.5) g/dl RDW Std Deviation 48.0 H (36.4-46.3) fL Plt Count 254 (182-369) K/mm3 MPV 9.9 (9.4-12.3) fl Sodium 143 (136-145) mEq/L Potassium 4.7 (3.5-5.1) mEq/L Chloride 107 (98-107) mEq/L Carbon Dioxide 24 (21-32) mEq/L Anion Gap 16.7 H (5-15) BUN 27 H (7-18) mg/dL Creatinine 1.0 (0.55-1.02) mg/dL Est Cr Clr Drug Dosing 47.10 mL/min Estimated GFR (MDRD) 55 (>60) mL/min BUN/Creatinine Ratio 27.0 H (14-18) Glucose 170 H (70-99) mg/dL POC Glucose 179 H (70-99) mg/dL Calcium 8.6 (8.5-10.1) mg/dL Magnesium 1.4 L (1.8-2.4) mg/dL 02/08/21 02/08/21 02/09/21 Range/Units 16:37 21:10 05:55 WBC 8.83 (3.98-10.04) K/mm3 RBC 3.96 L (3.98-5.22) M/mm3 Hgb 10.7 L (11.2-15.7) gm/dl Hct 34.1 (34.1-44.9) % MCV 86.1 (79.4-94.8) fl MCH 27.0 (25.6-32.2) pg MCHC 31.4 L (32.2-35.5) g/dl RDW Std Deviation 48.2 H (36.4-46.3) fL Plt Count 243 (182-369) K/mm3 MPV 9.7 (9.4-12.3) fl Sodium (136-145) mEq/L Potassium (3.5-5.1) mEq/L Chloride (98-107) mEq/L Carbon Dioxide (21-32) mEq/L Anion Gap (5-15) BUN (7-18) mg/dL Creatinine (0.55-1.02) mg/dL Est Cr Clr Drug Dosing mL/min Estimated GFR (MDRD) (>60) mL/min BUN/Creatinine Ratio (14-18) Glucose (70-99) mg/dL POC Glucose 230 H 214 H (70-99) mg/dL Calcium (8.5-10.1) mg/dL Magnesium (1.8-2.4) mg/dL 02/09/21 02/09/21 Range/Units 05:55 06:20 WBC (3.98-10.04) K/mm3 RBC (3.98-5.22) M/mm3 Hgb (11.2-15.7) gm/dl Hct (34.1-44.9) % MCV (79.4-94.8) fl MCH (25.6-32.2) pg MCHC (32.2-35.5) g/dl RDW Std Deviation (36.4-46.3) fL Plt Count (182-369) K/mm3 MPV (9.4-12.3) fl Sodium 145 (136-145) mEq/L Potassium 4.3 (3.5-5.1) mEq/L Chloride 110 H (98-107) mEq/L Carbon Dioxide 27 (21-32) mEq/L Anion Gap 12.3 (5-15) BUN 24 H (7-18) mg/dL Creatinine 1.0 (0.55-1.02) mg/dL Est Cr Clr Drug Dosing 47.10 mL/min Estimated GFR (MDRD) 55 (>60) mL/min BUN/Creatinine Ratio 24.0 H (14-18) Glucose 103 H (70-99) mg/dL POC Glucose 92 (70-99) mg/dL Calcium 8.3 L (8.5-10.1) mg/dL Magnesium (1.8-2.4) mg/dL KATY Results - Last 24 hrs: Microbiology 02/06/21 16:15 Urine Culture - Preliminary Urine Escherichia Coli Med Orders - Current: Current Medications Albuterol (Albuterol 6.7 Gm Inhaler) 0 gm INH Q4H PRN PRN Reason: SOB/WHEEZING Last Admin: 02/08/21 20:49 Dose: 2 puff Documented by: Albuterol/Ipratropium (Albuterol/Ipratropium 3.0-0.5 Mg/3 Ml Neb Soln) 3 ml NEB Q4H PRN PRN Reason: Shortness Of Breath/wheezing Alogliptin Benzoate (Alogliptin 12.5 Mg Tab) 12.5 mg PO DAILY [facility] Last Admin: 02/09/21 08:10 Dose: 12.5 mg Documented by: Apixaban (Apixaban 5 Mg Tab) 10 mg PO BID [facility] Last Admin: 02/09/21 08:09 Dose: 10 mg Documented by: Cholecalciferol (Cholecalciferol (Vitamin D3) 5,000 Unit Cap) 5,000 unit PO DIANA LY [facility] Last Admin: 02/09/21 08:10 Dose: 5,000 unit Documented by: Clopidogrel Bisulfate (Clopidogrel 75 Mg Tab) 75 mg PO DAILY [facility] Last Admin: 02/09/21 08:11 Dose: 75 mg Documented by: Docusate Sodium (Docusate Sodium 100 Mg Cap) 100 mg PO BID PRN PRN Reason: Constipation Sodium Chloride (Normal Saline) 1,000 mls @ 50 mls/hr IV ASDIRECTED [facility] Last Admin: 02/08/21 13:47 Dose: 50 mls/hr Documented by: Ceftriaxone Sodium 1 gm/ (Sodium Chloride) 100 mls @ 200 mls/hr IV Q24H [facility] Last Admin: 02/08/21 18:12 Dose: 200 mls/hr Documented by: Insulin Glargine (Insulin Glarg,Human.Rec.Analog 100 Unit/Ml) 46 unit SUBCUT BEDTIME [facility] Last Admin: 02/08/21 21:11 Dose: 46 unit Documented by: Insulin Human Regular (Insulin Regular, Human 100 Units/Ml 3 Ml Vial) 0 unit SUBCUT TIDPC [facility]; Protocol Last Admin: 02/09/21 08:12 Dose: Not Given Documented by: Lisinopril (Lisinopril 20 Mg Tab) 20 mg PO DAILY [facility] Last Admin: 02/09/21 08:11 Dose: 20 mg Documented by: Loratadine (Loratadine 10 Mg Tab) 10 mg PO DAILY [facility] Last Admin: 02/09/21 08:10 Dose: 10 mg Documented by: Magnesium Oxide (Magnesium Oxide 400 Mg Tab) 400 mg PO DAILY [facility] Last Admin: 02/09/21 08:10 Dose: 400 mg Documented by: Metformin HCl (Metformin 500 Mg Tab) 500 mg PO BIDMEALS [facility] Last Admin: 02/09/21 06:21 Dose: 500 mg Documented by: Metoprolol Succinate (Metoprolol Succinate 50 Mg Tab.Er) 50 mg PO DAILY [facility] Last Admin: 02/09/21 08:10 Dose: 50 mg Documented by: Ondansetron HCl (Ondansetron 4 Mg Tab.Dis) 4 mg PO Q4H PRN PRN Reason: nausea, able to take PO Oxycodone HCl (Oxycodone 5 Mg Tab) 5 mg PO Q4H PRN PRN Reason: Pain (moderate 4-6) Last Admin: 02/07/21 14:42 Dose: 5 mg Documented by: Prednisone (Prednisone 20 Mg Tab) 40 mg PO WITHBREAKFAST [facility] Last Admin: 02/09/21 06:20 Dose: 40 mg Documented by: Rosuvastatin Calcium (Rosuvastatin 10 Mg Tab) 5 mg PO DAILY [facility] Last Admin: 02/09/21 08:10 Dose: 5 mg Documented by: Sertraline HCl (Sertraline 50 Mg Tab) 100 mg PO DAILY [facility] Last Admin: 02/09/21 08:11 Dose: 100 mg Documented by: Sodium Chloride (Sodium Chloride 0.65% Nasal Gobler 45 Ml Bottle) 0 ml MOOSE Q2H PRN PRN Reason: Dryness Temazepam (Temazepam 15 Mg Cap) 15 mg PO BEDTIME PRN PRN Reason: Sleep Zinc Sulfate (Zinc Sulfate 220 Mg Cap) 220 mg PO DAILY [facility] Last Admin: 02/09/21 08:11 Dose: 220 mg Documented by: Discontinued Medications Cholecalciferol (Cholecalciferol (Vitamin D3) 5,000 Unit Tab) 5,000 unit PO DAILY [facility] Furosemide (Furosemide 20 Mg/2 Ml Vial) 20 mg IVPUSH ONETIME ONE Stop: 02/07/21 14:31 Last Admin: 02/07/21 14:42 Dose: 20 mg Documented by: Heparin Sodium (Porcine) (Heparin Sodium 5,000 Units/Ml Vial) 5,000 units SUBCUT Q8H [facility] Last Admin: 02/07/21 02:17 Dose: Not Given Documented by: Heparin Sodium (Porcine) (Heparin Sodium 5,000 Units/Ml Vial) 5,000 units SUBCUT Q8H [facility] Last Admin: 02/07/21 04:41 Dose: 5,000 units Documented by: Ceftriaxone Sodium 1 gm/ (Sodium Chloride) 100 mls @ 200 mls/hr IV ONETIME ONE Stop: 02/06/21 16:56 Last Admin: 02/06/21 17:03 Dose: 200 mls/hr Documented by: Ceftriaxone Sodium 1 gm/ (Sodium Chloride) 100 mls @ 200 mls/hr IV Q24H [facility] Sodium Chloride (Normal Saline) 100 mls @ 60 mls/hr IV ASDIRECTED [facility] Last Admin: 02/06/21 18:16 Dose: 60 mls/hr Documented by: Magnesium Sulfate 4 gm/ Premix 50 mls @ 12.5 mls/hr IV ONETIME ONE Stop: 02/08/21 18:59 Last Admin: 02/08/21 14:38 Dose: 12.5 mls/hr Documented by: Insulin Glargine (Insulin Glarg,Human.Rec.Analog 100 Unit/Ml) 46 unit SUBCUT BEDTIME [facility] Last Admin: 02/06/21 21:37 Dose: 46 units Documented by: Iopamidol (Iopamidol 755 Mg/Ml 100 Ml Bottle) 100 ml IVPUSH ONETIME ONE Stop: 02/06/21 18:11 Last Admin: 02/06/21 18:16 Dose: 100 ml Documented by: Metformin HCl (Metformin 500 Mg Tab) 500 mg PO BIDMEALS [facility] Methylprednisolone Sodium Succinate (Methylprednisolone Sodium Succinate 125 Mg/2 Ml Sdv) 125 mg IVPUSH ONETIME ONE Stop: 02/06/21 16:28 Last Admin: 02/06/21 17:03 Dose: 125 mg Documented by: Morphine Sulfate (Morphine 2 Mg/Ml Syringe) 2 mg IVPUSH Q2H PRN PRN Reason: Pain (severe 7-10) Stop: 02/07/21 17:16 Sodium Chloride (Sodium Chloride 0.9% 10 Ml Syringe) 10 ml FLUSH ONETIME PRN PRN Reason: Keep Vein Open Last Admin: 02/06/21 18:16 Dose: 10 ml Documented by:
[2021-02-09] MEDS: Albuterol 6.7 GM Inhaler INH PRN (09:51)
== END 2021-02-09 14:54 | disposition home or self-care (01) | DRG 177 ==
LOC: JD.ED 14:17 → JD.MS 16:32
PROVIDERS: ADMIT Internal Medicine; ATTEND Internal Medicine
PROC: XW033E5 Introduction of Remdesivir Anti-infective into Peripheral Vein, Percutaneous Approach, New Technology Group 5 (ICD-10-PCS; principal; 2021-02-06)
PROC: 3E0333Z Introduction of Anti-inflammatory into Peripheral Vein, Percutaneous Approach (ICD-10-PCS; 2021-02-06)
PROC: 8E0ZXY6 Isolation (ICD-10-PCS; 2021-02-06)
DX: R53.1 Weakness (principal); R09.02 Hypoxemia; Z86.16 Personal history of COVID-19; U07.1 COVID-19; J96.01 Acute respiratory failure with hypoxia; J12.82 Pneumonia due to coronavirus disease 2019; I10 Essential (primary) hypertension; J67.9 Hypersensitivity pneumonitis due to unspecified organic dust; N39.0 Urinary tract infection, site not specified; I82.4Z1 Acute embolism and thrombosis of unspecified deep veins of right distal lower extremity; Z68.44 Body mass index [BMI] 60.0-69.9, adult; R59.9 Enlarged lymph nodes, unspecified; E11.9 Type 2 diabetes mellitus without complications; N18.32 Chronic kidney disease, stage 3b; E83.42 Hypomagnesemia; E78.5 Hyperlipidemia, unspecified; Z79.02 Long term (current) use of antithrombotics/antiplatelets; I12.9 Hypertensive chronic kidney disease with stage 1 through stage 4 chronic kidney disease, or unspecified chronic kidney disease; Z96.653 Presence of artificial knee joint, bilateral; G47.00 Insomnia, unspecified; E11.22 Type 2 diabetes mellitus with diabetic chronic kidney disease; H54.7 Unspecified visual loss; E78.00 Pure hypercholesterolemia, unspecified; J45.909 Unspecified asthma, uncomplicated; R32 Unspecified urinary incontinence; M10.9 Gout, unspecified; M19.90 Unspecified osteoarthritis, unspecified site; R35.0 Frequency of micturition; F32.9 Major depressive disorder, single episode, unspecified; E66.9 Obesity, unspecified; Z98.49 Cataract extraction status, unspecified eye; Z79.4 Long term (current) use of insulin; Z88.0 Allergy status to penicillin; Z88.8 Allergy status to other drugs, medicaments and biological substances; Z79.899 Other long term (current) drug therapy; Z88.1 Allergy status to other antibiotic agents; Z86.73 Personal history of transient ischemic attack (TIA), and cerebral infarction without residual deficits; Z90.89 Acquired absence of other organs; Z90.49 Acquired absence of other specified parts of digestive tract; Z98.51 Tubal ligation status
CPT/HCPCS: 36415; 71045; 71045-26; 71275; 71275-26; 80048; 80053; 81001; 82947; 83735; 83880; 84484; 85025; 85027; 85379; 86140; 87086; 87088; 87186; 93005; 93010; 93970; 93970-26; 94640; 94667; 94668; 94761; 94762; 97110-GP; 97162-GP; 97530-GP; 99223; 99233; 99239; 99285; 99285-25; A9270-GY; J0696; J1644; J1815-GY; J1940; J2930; J3475; J7030; J7512; Q9967

== ENCOUNTER 2022-03-28 11:28 | Emergency (ER) | payer MEDICARE, MEDICAID ==
[2022-03-28 17:39] VITALS: BP 145/78; PULSE 68
== END 2022-03-28 15:27 | disposition home or self-care (01) ==
LOC: JD.ED 11:28
DX: M79.2 Neuralgia and neuritis, unspecified (principal); E78.00 Pure hypercholesterolemia, unspecified; I10 Essential (primary) hypertension; E11.9 Type 2 diabetes mellitus without complications; E66.9 Obesity, unspecified; Z68.41 Body mass index [BMI] 40.0-44.9, adult; Z88.0 Allergy status to penicillin; Z88.8 Allergy status to other drugs, medicaments and biological substances; Z88.6 Allergy status to analgesic agent; Z79.899 Other long term (current) drug therapy; Z79.4 Long term (current) use of insulin; Z79.84 Long term (current) use of oral hypoglycemic drugs; Z79.01 Long term (current) use of anticoagulants; Z86.16 Personal history of COVID-19; Z90.49 Acquired absence of other specified parts of digestive tract
CPT/HCPCS: 73630-26-LT; 73630-LT; 93971-26-LT; 93971-LT; 99284

== ENCOUNTER 2022-09-30 01:09 | Emergency (ER) | payer MEDICARE, MEDICAID ==
[2022-09-30 01:18] VITALS: BP 128/75; PULSE 95
[2022-09-30] MEDS ORDERED: Clindamycin HCl 150 MG Cap PO ONE (01:54)
== END 2022-09-30 03:44 | disposition home or self-care (01) ==
LOC: JD.ED 01:09
DX: L03.116 Cellulitis of left lower limb (principal); E78.00 Pure hypercholesterolemia, unspecified; I10 Essential (primary) hypertension; E11.9 Type 2 diabetes mellitus without complications; E66.9 Obesity, unspecified; Z68.42 Body mass index [BMI] 45.0-49.9, adult; Z88.0 Allergy status to penicillin; Z88.2 Allergy status to sulfonamides; Z88.6 Allergy status to analgesic agent; Z79.899 Other long term (current) drug therapy; Z79.4 Long term (current) use of insulin; Z79.84 Long term (current) use of oral hypoglycemic drugs; Z86.16 Personal history of COVID-19; Z90.49 Acquired absence of other specified parts of digestive tract
CPT/HCPCS: 36415; 80053; 83605; 85025; 99283; A9270

== ENCOUNTER 2023-05-28 09:37 | Emergency (ER) | payer MEDICARE, OTHER, MEDICAID ==
[2023-05-28 09:56] VITALS: BP 120/51; PULSE 99
[2023-05-28] MEDS ORDERED: Ondansetron 4 MG Tab.DIS PO ONE (10:37)
[2023-05-28] MEDS ORDERED: Acetaminophen/oxyCODONE 325-5 MG Tab PO ONE (10:37)
[2023-05-28] MEDS ORDERED: predniSONE 20 MG Tab PO ONE (10:37)
[2023-05-28] MEDS: Colchicine 0.6 MG Tab PO SCH ×3 (11:13→13:28)
[2023-05-28 11:16] LABS: BASOPHILS ABSOLUTE AUTO 0.1 K/mm3 (0.0-0.2); BASOPHILS PERCENT AUTO 0.4 % (0.0-1.0); EOSINOPHILS PERCENT AUTO 0.3 % (0.0-6.0); HEMATOCRIT 37.5 % (37.0-47.0); IMMATURE GRAN ABSOLUTE AUTO 0.07 K/mm3 (0.00-0.05); IMMATURE GRAN PERCENT AUTO 0.5 % (0.0-0.4); LYMPHOCYTES ABSOLUTE AUTO 1.8 K/mm3 (1.0-4.8); LYMPHOCYTES PERCENT AUTO 12.9 % (24.0-44.0); MEAN CORPUSCULAR HEMOGLOBIN 27.3 pg (28.0-32.0); MEAN CORPUSCULAR VOLUME 85.4 fl (83.0-99.0); MEAN PLATELET VOLUME 10.5 fl (9.4-12.3); MONOCYTES ABSOLUTE AUTO 1.2 K/mm3 (0.0-0.8); MONOCYTES PERCENT AUTO 8.5 % (0.0-8.0); NEUTROPHILS ABSOLUTE AUTO 10.9 K/mm3 (1.8-7.7); NEUTROPHILS PERCENT AUTO 77.4 % (41.0-71.0); PLATELET COUNT,PLT 207 K/mm3 (150-400); RED BLOOD CELL COUNT 4.39 M/mm3 (4.10-5.30); WHITE BLOOD CELL COUNT,WBC 14.08 K/mm3 (3.9-11.3)
[2023-05-28 11:44] LABS: A/G RATIO 0.9 (1-2); ALBUMIN 3.5 g/dl (3.4-5.0); ANION GAP 15.2 (5-15); BILIRUBIN TOTAL 0.7 mg/dL (0.2-1.0); BUN/CREATININE RATIO 17.7 (14-18); C-REACTIVE PROTEIN 10.9 mg/dL (<1.0); CALCIUM 9.2 mg/dL (8.5-10.1); CREATININE 1.3 mg/dL (0.55-1.02); EST CRCL DRUG DOSING (CG) 35.2 mL/min; MAGNESIUM 1.4 mg/dL (1.8-2.4); POTASSIUM,K 4.2 mEq/L (3.5-5.1); PROTEIN TOTAL,TP 7.4 g/dl (6.4-8.2); TSH 2.555 uIU/mL (0.358-3.74); URIC ACID 6.6 mg/dL (2.6-6.0)
== END 2023-05-28 15:30 | disposition home or self-care (01) ==
LOC: JD.ED 09:37
DX: M10.9 Gout, unspecified (principal); M16.0 Bilateral primary osteoarthritis of hip; I10 Essential (primary) hypertension; E78.00 Pure hypercholesterolemia, unspecified; J45.909 Unspecified asthma, uncomplicated; Z86.73 Personal history of transient ischemic attack (TIA), and cerebral infarction without residual deficits; E11.9 Type 2 diabetes mellitus without complications; E66.9 Obesity, unspecified; Z90.49 Acquired absence of other specified parts of digestive tract; Z90.710 Acquired absence of both cervix and uterus; Z79.4 Long term (current) use of insulin; Z79.899 Other long term (current) drug therapy; Z88.0 Allergy status to penicillin; Z88.6 Allergy status to analgesic agent; Z88.8 Allergy status to other drugs, medicaments and biological substances; Z88.5 Allergy status to narcotic agent; Z68.39 Body mass index [BMI] 39.0-39.9, adult
CPT/HCPCS: 36415; 72170; 73600; 80053; 83735; 84443; 84550; 85025; 86140; 99284; A9270; J7512; 99283

== ENCOUNTER 2023-06-14 14:04 | Emergency (ER) | payer MEDICARE, OTHER, MEDICAID ==
[2023-06-14] MEDS ORDERED: Sodium Chloride 0.9% 10 ML Syringe FLUSH PRN (14:31)
[2023-06-14] MEDS ORDERED: Iopamidol 612 MG/ML 100 ML Bottle IVPUSH ONE (15:31)
[2023-06-14] MEDS ORDERED: Sodium Chloride 0.9% 100 ML IV SCH (15:45)
[2023-06-14 15:47] LABS: BASOPHILS ABSOLUTE AUTO 0.1 K/mm3 (0.0-0.2); BASOPHILS PERCENT AUTO 0.8 % (0.0-1.0); EOSINOPHILS ABSOLUTE AUTO 0.2 K/mm3 (0.0-0.4); HEMATOCRIT 37.6 % (37.0-47.0); HEMOGLOBIN 11.6 gm/dl (12.0-16.0); IMMATURE GRAN ABSOLUTE AUTO 0.02 K/mm3 (0.00-0.05); IMMATURE GRAN PERCENT AUTO 0.3 % (0.0-0.4); LYMPHOCYTES ABSOLUTE AUTO 1.5 K/mm3 (1.0-4.8); LYMPHOCYTES PERCENT AUTO 24.8 % (24.0-44.0); MEAN CORPUSCULAR HEMOGLOBIN 27.7 pg (28.0-32.0); MEAN CORPUSCULAR HGB CONC 30.9 g/dl (32.0-36.0); MEAN CORPUSCULAR VOLUME 89.7 fl (83.0-99.0); MEAN PLATELET VOLUME 10.5 fl (9.4-12.3); MONOCYTES ABSOLUTE AUTO 0.5 K/mm3 (0.0-0.8); MONOCYTES PERCENT AUTO 8.7 % (0.0-8.0); NEUTROPHILS ABSOLUTE AUTO 3.8 K/mm3 (1.8-7.7); NEUTROPHILS PERCENT AUTO 62.4 % (41.0-71.0); PLATELET COUNT,PLT 167 K/mm3 (150-400); RED BLOOD CELL COUNT 4.19 M/mm3 (4.10-5.30); WHITE BLOOD CELL COUNT,WBC 6.01 K/mm3 (3.9-11.3)
[2023-06-14 16:17] LABS: ALBUMIN 3.2 g/dl (3.4-5.0); ANION GAP 11.8 (5-15); BILIRUBIN TOTAL 0.3 mg/dL (0.2-1.0); BUN/CREATININE RATIO 15.6 (14-18); CREATININE 0.9 mg/dL (0.55-1.02); EST CRCL DRUG DOSING (CG) 51.87 mL/min; POTASSIUM,K 4.8 mEq/L (3.5-5.1); PROTEIN TOTAL,TP 6.5 g/dl (6.4-8.2)
[2023-06-14 18:18] VITALS: BP 110/50; PULSE 70
== END 2023-06-14 17:15 | disposition home or self-care (01) ==
LOC: JD.ED 14:04
DX: S70.01XA Contusion of right hip, initial encounter (principal); M47.816 Spondylosis without myelopathy or radiculopathy, lumbar region; I10 Essential (primary) hypertension; E78.00 Pure hypercholesterolemia, unspecified; J45.909 Unspecified asthma, uncomplicated; E11.9 Type 2 diabetes mellitus without complications; E66.9 Obesity, unspecified; Z86.73 Personal history of transient ischemic attack (TIA), and cerebral infarction without residual deficits; Z90.49 Acquired absence of other specified parts of digestive tract; Z79.84 Long term (current) use of oral hypoglycemic drugs; Z79.899 Other long term (current) drug therapy; Z88.6 Allergy status to analgesic agent; Z88.0 Allergy status to penicillin; Z88.1 Allergy status to other antibiotic agents; Z88.8 Allergy status to other drugs, medicaments and biological substances; W18.30XA Fall on same level, unspecified, initial encounter
CPT/HCPCS: 36415; 72192; 74177; 80053; 85025; 99284; J3490; Q9967

== ENCOUNTER 2023-06-16 07:22 | Inpatient (IN) | payer MEDICARE, OTHER, MEDICAID ==
[2023-06-16] MEDS ORDERED: Morphine 2 MG/ML SYRINGE IVPUSH ONE (07:57)
[2023-06-16] MEDS ORDERED: Naloxone 0.4 MG/ML SDV IVPUSH PRN (07:57)
[2023-06-16] MEDS ORDERED: Ondansetron 4 MG/2 ML SDV IVPUSH ONE (07:59)
[2023-06-16 08:18] LABS: BASOPHILS PERCENT AUTO 0.7 % (0.0-1.0); EOSINOPHILS ABSOLUTE AUTO 0.3 K/mm3 (0.0-0.4); EOSINOPHILS PERCENT AUTO 5.3 % (0.0-6.0); HEMATOCRIT 37.3 % (37.0-47.0); HEMOGLOBIN 11.8 gm/dl (12.0-16.0); IMMATURE GRAN ABSOLUTE AUTO 0.03 K/mm3 (0.00-0.05); IMMATURE GRAN PERCENT AUTO 0.5 % (0.0-0.4); LYMPHOCYTES ABSOLUTE AUTO 1.6 K/mm3 (1.0-4.8); LYMPHOCYTES PERCENT AUTO 28.7 % (24.0-44.0); MEAN CORPUSCULAR HEMOGLOBIN 28.1 pg (28.0-32.0); MEAN CORPUSCULAR HGB CONC 31.6 g/dl (32.0-36.0); MEAN CORPUSCULAR VOLUME 88.8 fl (83.0-99.0); MEAN PLATELET VOLUME 10.4 fl (9.4-12.3); MONOCYTES ABSOLUTE AUTO 0.4 K/mm3 (0.0-0.8); MONOCYTES PERCENT AUTO 7.4 % (0.0-8.0); NEUTROPHILS ABSOLUTE AUTO 3.3 K/mm3 (1.8-7.7); NEUTROPHILS PERCENT AUTO 57.4 % (41.0-71.0); PLATELET COUNT,PLT 157 K/mm3 (150-400); WHITE BLOOD CELL COUNT,WBC 5.67 K/mm3 (3.9-11.3)
[2023-06-16 08:20] LABS: APPEARANCE,URINE CLEAR (Clear); BILIRUBIN,URINE NEGATIVE (Negative); COLOR,URINE YELLOW (Yellow); GLUCOSE,URINE TRACE (Negative); KETONES,URINE NEGATIVE (Negative); LEUKOCYTE ESTERASE,URINE TRACE (Negative); NITRITE,URINE POSITIVE (Negative); OCCULT BLOOD,URINE NEGATIVE (Negative); PH,URINE 5.5 (5.0-8.0); PROTEIN,URINE NEGATIVE (Negative); UROBILINOGEN,URINE 0.2 (0.2-1.0)
[2023-06-16 08:42] LABS: A/G RATIO 1.1 (1-2); ALBUMIN 3.3 g/dl (3.4-5.0); ANION GAP 14.1 (5-15); BILIRUBIN TOTAL 0.3 mg/dL (0.2-1.0); BUN/CREATININE RATIO 11.3 (14-18); CALCIUM 8.6 mg/dL (8.5-10.1); CREATININE 0.8 mg/dL (0.55-1.02); EST CRCL DRUG DOSING (CG) 57.2 mL/min; POTASSIUM,K 4.1 mEq/L (3.5-5.1); PROTEIN TOTAL,TP 6.4 g/dl (6.4-8.2)
[2023-06-16 09:08] LABS: BACTERIA,URINE MANY /hpf (FEW); EPITHELIAL CELLS,URINE NOT SEEN /hpf (0-5); MUCUS,URINE MODERATE /hpf (FEW); RBC,URINE 0-5 /hpf (0-5)
[2023-06-16 09:21] LABS: CORONAVIRUS COVID-19 NAA NEGATIVE (NEGATIVE); INFLUENZA A NAA NEGATIVE (NEGATIVE); RESPIRATORY SYNCYTIAL VIR NAA POSITIVE (NEGATIVE)
[2023-06-16] MEDS ORDERED: Polyethylene Glycol 3350 Powder 17 GM Packet PO PRN (09:53)
[2023-06-16] MEDS ORDERED: Acetaminophen 325 MG Tab PO PRN (09:53)
[2023-06-16] MEDS ORDERED: Acetaminophen/HYDROcodone 325-5 MG Tab PO PRN (09:53)
[2023-06-16] MEDS ORDERED: Ondansetron 4 MG/2 ML SDV IV PRN (09:53)
[2023-06-16] MEDS ORDERED: Ondansetron 4 MG Tab.DIS PO PRN (09:53)
[2023-06-16] MEDS ORDERED: Docusate Sodium 100 MG Cap PO PRN (09:53)
[2023-06-16] MEDS ORDERED: Glucagon,Human Recombinant 1 MG Vial IM PRN (09:59)
[2023-06-16] MEDS ORDERED: 50% Dextrose in Water 50 ML Syringe IVPUSH PRN (09:59)
[2023-06-16] MEDS: Insulin Lispro 100 Unit/ML 3 ML KwikPen SUBCUT SCH ×3 (12:32→21:54)
[2023-06-16] MEDS: Heparin Sodium 5,000 Units/ML Vial SUBCUT SCH ×2 (12:34→18:27)
[2023-06-16] MEDS: oxyCODONE 5 MG Tab PO PRN (14:31)
[2023-06-16] MEDS: oxyCODONE ER 20 MG TAB.ER PO SCH (21:55)
[2023-06-17] MEDS: Heparin Sodium 5,000 Units/ML Vial SUBCUT SCH ×3 (02:50→17:09)
[2023-06-17] MEDS: oxyCODONE 5 MG Tab PO PRN ×2 (04:21→09:56)
[2023-06-17] MEDS: Insulin Lispro 100 Unit/ML 3 ML KwikPen SUBCUT SCH ×4 (06:56→20:27)
[2023-06-17] MEDS: oxyCODONE ER 20 MG TAB.ER PO SCH ×2 (08:10→20:25)
[2023-06-17] MEDS ORDERED: Non-Formulary Medication 1 Each (Docusate Sodium [Colace] 100 MG Cap) PO PRN (10:16)
[2023-06-17] MEDS: Sertraline 50 MG Tab PO SCH (12:07)
[2023-06-17] MEDS: Allopurinol 100 MG Tab PO SCH (12:07)
[2023-06-17] MEDS: Polyethylene Glycol 3350 Powder 17 GM Packet PO SCH (12:07)
[2023-06-17] MEDS: Magnesium Oxide 400 MG Tab PO SCH (12:07)
[2023-06-17] MEDS: Metoprolol Succinate 25 MG Tab.ER PO SCH (12:07)
[2023-06-17] MEDS: Clopidogrel 75 MG Tab PO SCH (12:07)
[2023-06-17] MEDS: Lisinopril 20 MG Tab PO SCH (12:07)
[2023-06-17] MEDS: Rosuvastatin 10 MG Tab PO SCH (12:08)
[2023-06-17] MEDS ORDERED: Ibuprofen 400 MG Tab PO ONE (12:45)
[2023-06-17] MEDS: Gabapentin 600 MG Tab PO SCH ×2 (14:45→20:25)
[2023-06-17] MEDS: Formoterol/Mometasone 200-5 MCG 8.8 GM Inhaler IH SCH ×2 (15:48→20:55)
[2023-06-17] MEDS: Insulin Glargine,Human Rec. Analog 100 Units/ML 3 ML Pen SUBCUT SCH (20:27)
[2023-06-18] MEDS: Heparin Sodium 5,000 Units/ML Vial SUBCUT SCH ×3 (02:32→18:16)
[2023-06-18 04:45] LABS: BASOPHILS PERCENT AUTO 0.5 % (0.0-1.0); EOSINOPHILS ABSOLUTE AUTO 0.3 K/mm3 (0.0-0.4); EOSINOPHILS PERCENT AUTO 3.6 % (0.0-6.0); HEMATOCRIT 37.6 % (37.0-47.0); HEMOGLOBIN 11.8 gm/dl (12.0-16.0); IMMATURE GRAN ABSOLUTE AUTO 0.04 K/mm3 (0.00-0.05); IMMATURE GRAN PERCENT AUTO 0.5 % (0.0-0.4); LYMPHOCYTES ABSOLUTE AUTO 1.8 K/mm3 (1.0-4.8); LYMPHOCYTES PERCENT AUTO 21.2 % (24.0-44.0); MEAN CORPUSCULAR HEMOGLOBIN 27.9 pg (28.0-32.0); MEAN CORPUSCULAR HGB CONC 31.4 g/dl (32.0-36.0); MEAN CORPUSCULAR VOLUME 88.9 fl (83.0-99.0); MEAN PLATELET VOLUME 10.2 fl (9.4-12.3); MONOCYTES ABSOLUTE AUTO 0.6 K/mm3 (0.0-0.8); MONOCYTES PERCENT AUTO 6.4 % (0.0-8.0); NEUTROPHILS ABSOLUTE AUTO 5.9 K/mm3 (1.8-7.7); NEUTROPHILS PERCENT AUTO 67.8 % (41.0-71.0); PLATELET COUNT,PLT 183 K/mm3 (150-400); RED BLOOD CELL COUNT 4.23 M/mm3 (4.10-5.30); WHITE BLOOD CELL COUNT,WBC 8.69 K/mm3 (3.9-11.3)
[2023-06-18 05:01] LABS: ANION GAP 13.1 (5-15); CALCIUM 8.9 mg/dL (8.5-10.1); EST CRCL DRUG DOSING (CG) 45.76 mL/min; POTASSIUM,K 5.1 mEq/L (3.5-5.1)
[2023-06-18] MEDS: Insulin Lispro 100 Unit/ML 3 ML KwikPen SUBCUT SCH ×4 (08:23→21:25)
[2023-06-18] MEDS: Allopurinol 100 MG Tab PO SCH (08:24)
[2023-06-18] MEDS: Metoprolol Succinate 25 MG Tab.ER PO SCH (08:24)
[2023-06-18] MEDS: Clopidogrel 75 MG Tab PO SCH (08:24)
[2023-06-18] MEDS: Lisinopril 20 MG Tab PO SCH (08:25)
[2023-06-18] MEDS: Gabapentin 600 MG Tab PO SCH ×3 (08:25→21:26)
[2023-06-18] MEDS: oxyCODONE ER 20 MG TAB.ER PO SCH ×2 (08:25→21:27)
[2023-06-18] MEDS: Rosuvastatin 10 MG Tab PO SCH (08:25)
[2023-06-18] MEDS: Sertraline 50 MG Tab PO SCH (08:26)
[2023-06-18] MEDS: Polyethylene Glycol 3350 Powder 17 GM Packet PO SCH (08:26)
[2023-06-18] MEDS: Magnesium Oxide 400 MG Tab PO SCH (08:26)
[2023-06-18] MEDS: Formoterol/Mometasone 200-5 MCG 8.8 GM Inhaler IH SCH ×2 (09:28→20:20)
[2023-06-18] MEDS ORDERED: Albuterol/Ipratropium 3.0-0.5 MG/3 ML Neb Soln NEB PRN (11:14)
[2023-06-18] MEDS ORDERED: Ibuprofen 400 MG Tab PO ONE (13:13)
[2023-06-18] MEDS ORDERED: Naloxone 0.4 MG/ML SDV IVPUSH PRN (14:17)
[2023-06-18] MEDS ORDERED: fentaNYL 100 MCG/2 ML SDV IVPUSH ONE (14:17)
[2023-06-18] MEDS: Insulin Glargine,Human Rec. Analog 100 Units/ML 3 ML Pen SUBCUT SCH (21:26)
[2023-06-19] MEDS: Heparin Sodium 5,000 Units/ML Vial SUBCUT SCH ×3 (01:37→18:15)
[2023-06-19] MEDS: Clopidogrel 75 MG Tab PO SCH (08:12)
[2023-06-19] MEDS: Lisinopril 20 MG Tab PO SCH (08:12)
[2023-06-19] MEDS: Allopurinol 100 MG Tab PO SCH (08:12)
[2023-06-19] MEDS: Magnesium Oxide 400 MG Tab PO SCH (08:13)
[2023-06-19] MEDS: Gabapentin 600 MG Tab PO SCH ×3 (08:13→20:07)
[2023-06-19] MEDS: oxyCODONE ER 20 MG TAB.ER PO SCH (08:13)
[2023-06-19] MEDS: Metoprolol Succinate 25 MG Tab.ER PO SCH (08:13)
[2023-06-19] MEDS: Rosuvastatin 10 MG Tab PO SCH (08:14)
[2023-06-19] MEDS: Polyethylene Glycol 3350 Powder 17 GM Packet PO SCH (08:17)
[2023-06-19] MEDS: Sertraline 50 MG Tab PO SCH (08:17)
[2023-06-19] MEDS: Insulin Lispro 100 Unit/ML 3 ML KwikPen SUBCUT SCH ×4 (08:18→20:05)
[2023-06-19] MEDS: Formoterol/Mometasone 200-5 MCG 8.8 GM Inhaler IH SCH ×2 (09:11→20:43)
[2023-06-19] MEDS: Insulin Glargine,Human Rec. Analog 100 Units/ML 3 ML Pen SUBCUT SCH (20:07)
[2023-06-19] MEDS ORDERED: Ibuprofen 400 MG Tab PO PRN (21:11)
[2023-06-19 23:52] LABS: APPEARANCE,URINE CLEAR (Clear); BILIRUBIN,URINE 1+ (Negative); COLOR,URINE DARK YELLOW (Yellow); GLUCOSE,URINE NEGATIVE (Negative); KETONES,URINE TRACE (Negative); LEUKOCYTE ESTERASE,URINE 2+ (Negative); NITRITE,URINE NEGATIVE (Negative); OCCULT BLOOD,URINE NEGATIVE (Negative); PH,URINE 5.5 (5.0-8.0); PROTEIN,URINE 1+ (Negative)
[2023-06-20 00:01] LABS: RBC,URINE 0-5 /hpf (0-5); WBC,URINE 0-5 /hpf (0-5)
[2023-06-20 00:02] LABS: BACTERIA,URINE MANY /hpf (FEW); EPITHELIAL CELLS,URINE NOT SEEN /hpf (0-5); MUCUS,URINE NOT SEEN /hpf (FEW)
[2023-06-20] MEDS: Heparin Sodium 5,000 Units/ML Vial SUBCUT SCH ×3 (02:07→18:02)
[2023-06-20 05:04] LABS: BASOPHILS ABSOLUTE AUTO 0.1 K/mm3 (0.0-0.2); BASOPHILS PERCENT AUTO 0.5 % (0.0-1.0); EOSINOPHILS ABSOLUTE AUTO 0.2 K/mm3 (0.0-0.4); EOSINOPHILS PERCENT AUTO 1.8 % (0.0-6.0); HEMOGLOBIN 10.2 gm/dl (12.0-16.0); IMMATURE GRAN ABSOLUTE AUTO 0.07 K/mm3 (0.00-0.05); IMMATURE GRAN PERCENT AUTO 0.7 % (0.0-0.4); LYMPHOCYTES ABSOLUTE AUTO 1.5 K/mm3 (1.0-4.8); LYMPHOCYTES PERCENT AUTO 15.2 % (24.0-44.0); MEAN CORPUSCULAR HEMOGLOBIN 28.2 pg (28.0-32.0); MEAN CORPUSCULAR HGB CONC 31.9 g/dl (32.0-36.0); MEAN CORPUSCULAR VOLUME 88.4 fl (83.0-99.0); MEAN PLATELET VOLUME 10.5 fl (9.4-12.3); MONOCYTES ABSOLUTE AUTO 0.9 K/mm3 (0.0-0.8); MONOCYTES PERCENT AUTO 8.9 % (0.0-8.0); NEUTROPHILS ABSOLUTE AUTO 7.4 K/mm3 (1.8-7.7); NEUTROPHILS PERCENT AUTO 72.9 % (41.0-71.0); PLATELET COUNT,PLT 139 K/mm3 (150-400); RED BLOOD CELL COUNT 3.62 M/mm3 (4.10-5.30); WHITE BLOOD CELL COUNT,WBC 10.08 K/mm3 (3.9-11.3)
[2023-06-20 05:47] LABS: ANION GAP 13.9 (5-15); BUN/CREATININE RATIO 23.3 (14-18); CALCIUM 8.5 mg/dL (8.5-10.1); CREATININE 1.5 mg/dL (0.55-1.02); EST CRCL DRUG DOSING (CG) 30.5 mL/min; POTASSIUM,K 4.9 mEq/L (3.5-5.1)
[2023-06-20] MEDS: Formoterol/Mometasone 200-5 MCG 8.8 GM Inhaler IH SCH ×2 (08:17→20:34)
[2023-06-20] MEDS: Insulin Lispro 100 Unit/ML 3 ML KwikPen SUBCUT SCH ×4 (08:35→20:05)
[2023-06-20] MEDS: Polyethylene Glycol 3350 Powder 17 GM Packet PO SCH (08:37)
[2023-06-20] MEDS: Allopurinol 100 MG Tab PO SCH (08:38)
[2023-06-20] MEDS: Sertraline 50 MG Tab PO SCH (08:38)
[2023-06-20] MEDS: Magnesium Oxide 400 MG Tab PO SCH (08:38)
[2023-06-20] MEDS: Gabapentin 600 MG Tab PO SCH ×3 (08:39→20:05)
[2023-06-20] MEDS: Lisinopril 20 MG Tab PO SCH (08:42)
[2023-06-20] MEDS: Rosuvastatin 10 MG Tab PO SCH (08:43)
[2023-06-20] MEDS: Metoprolol Succinate 25 MG Tab.ER PO SCH (08:43)
[2023-06-20] MEDS: Clopidogrel 75 MG Tab PO SCH (08:44)
[2023-06-20] MEDS: oxyCODONE ER 20 MG TAB.ER PO SCH ×2 (09:09→20:05)
[2023-06-20 09:24] LABS: APPEARANCE,URINE CLEAR (Clear); BILIRUBIN,URINE NEGATIVE (Negative); COLOR,URINE YELLOW (Yellow); GLUCOSE,URINE NEGATIVE (Negative); KETONES,URINE NEGATIVE (Negative); LEUKOCYTE ESTERASE,URINE 1+ (Negative); NITRITE,URINE POSITIVE (Negative); OCCULT BLOOD,URINE NEGATIVE (Negative); PROTEIN,URINE NEGATIVE (Negative)
[2023-06-20 10:51] LABS: BACTERIA,URINE MODERATE /hpf (FEW); EPITHELIAL CELLS,URINE 0-5 /hpf (0-5); MUCUS,URINE FEW /hpf (FEW); RBC,URINE 0-5 /hpf (0-5); WBC,URINE 0-5 /hpf (0-5)
[2023-06-20] MEDS: cefTRIAXone 2 GM in Sodium Chloride 0.9% 100 ML IV SCH (11:45)
[2023-06-20] MEDS: Insulin Glargine,Human Rec. Analog 100 Units/ML 3 ML Pen SUBCUT SCH (20:04)
[2023-06-21] MEDS: Heparin Sodium 5,000 Units/ML Vial SUBCUT SCH ×2 (02:29→10:13)
[2023-06-21 05:39] LABS: A/G RATIO 0.7 (1-2); ALBUMIN 2.6 g/dl (3.4-5.0); ANION GAP 11.9 (5-15); BILIRUBIN TOTAL 0.5 mg/dL (0.2-1.0); CALCIUM 8.7 mg/dL (8.5-10.1); EST CRCL DRUG DOSING (CG) 45.76 mL/min; POTASSIUM,K 4.9 mEq/L (3.5-5.1); PROTEIN TOTAL,TP 6.5 g/dl (6.4-8.2)
[2023-06-21 06:15] LABS: BASOPHILS PERCENT AUTO 0.4 % (0.0-1.0); EOSINOPHILS ABSOLUTE AUTO 0.3 K/mm3 (0.0-0.4); HEMATOCRIT 32.6 % (37.0-47.0); HEMOGLOBIN 10.4 gm/dl (12.0-16.0); IMMATURE GRAN ABSOLUTE AUTO 0.07 K/mm3 (0.00-0.05); IMMATURE GRAN PERCENT AUTO 0.7 % (0.0-0.4); LYMPHOCYTES ABSOLUTE AUTO 1.7 K/mm3 (1.0-4.8); LYMPHOCYTES PERCENT AUTO 16.2 % (24.0-44.0); MEAN CORPUSCULAR HEMOGLOBIN 27.7 pg (28.0-32.0); MEAN CORPUSCULAR HGB CONC 31.9 g/dl (32.0-36.0); MEAN CORPUSCULAR VOLUME 86.7 fl (83.0-99.0); MEAN PLATELET VOLUME 11.6 fl (9.4-12.3); MONOCYTES ABSOLUTE AUTO 1.1 K/mm3 (0.0-0.8); MONOCYTES PERCENT AUTO 10.2 % (0.0-8.0); NEUTROPHILS ABSOLUTE AUTO 7.3 K/mm3 (1.8-7.7); NEUTROPHILS PERCENT AUTO 69.5 % (41.0-71.0); PLATELET COUNT,PLT 171 K/mm3 (150-400); RED BLOOD CELL COUNT 3.76 M/mm3 (4.10-5.30); WHITE BLOOD CELL COUNT,WBC 10.43 K/mm3 (3.9-11.3)
[2023-06-21] MEDS: Insulin Lispro 100 Unit/ML 3 ML KwikPen SUBCUT SCH ×2 (08:27→11:16)
[2023-06-21] MEDS: Allopurinol 100 MG Tab PO SCH (08:28)
[2023-06-21] MEDS: oxyCODONE ER 20 MG TAB.ER PO SCH (08:29)
[2023-06-21] MEDS: Gabapentin 600 MG Tab PO SCH (08:29)
[2023-06-21] MEDS: Lisinopril 20 MG Tab PO SCH (08:30)
[2023-06-21] MEDS: Metoprolol Succinate 25 MG Tab.ER PO SCH (08:30)
[2023-06-21] MEDS: Sertraline 50 MG Tab PO SCH (08:30)
[2023-06-21] MEDS: Clopidogrel 75 MG Tab PO SCH (08:31)
[2023-06-21] MEDS: Magnesium Oxide 400 MG Tab PO SCH (08:31)
[2023-06-21] MEDS: Polyethylene Glycol 3350 Powder 17 GM Packet PO SCH (08:32)
[2023-06-21] MEDS: Rosuvastatin 10 MG Tab PO SCH (08:35)
[2023-06-21] MEDS: Formoterol/Mometasone 200-5 MCG 8.8 GM Inhaler IH SCH (08:57)
[2023-06-21] MEDS: cefTRIAXone 2 GM in Sodium Chloride 0.9% 100 ML IV SCH ×2 (11:17→14:37)
[2023-06-21] MEDS ORDERED: Cefdinir 300 MG Cap PO ONE (12:11)
[2023-06-21 12:32] VITALS: BP 124/93; PULSE 75
[2023-06-21 12:58] LABS: CORONAVIRUS COVID-19 NAA NEGATIVE (NEGATIVE); INFLUENZA A NAA NEGATIVE (NEGATIVE)
== END 2023-06-21 13:15 | DRG 202 ==
LOC: JD.ED 07:22 → JD.MS 09:53 → OBSVTOIN 06-18 11:12
PROVIDERS: ADMIT Hospitalist; ATTEND Hospitalist
DX: J21.0 Acute bronchiolitis due to respiratory syncytial virus (principal); R53.1 Weakness; N30.00 Acute cystitis without hematuria; I10 Essential (primary) hypertension; Z68.41 Body mass index [BMI] 40.0-44.9, adult; E11.9 Type 2 diabetes mellitus without complications; E66.9 Obesity, unspecified; M25.551 Pain in right hip; E78.00 Pure hypercholesterolemia, unspecified; Z88.8 Allergy status to other drugs, medicaments and biological substances; J45.909 Unspecified asthma, uncomplicated; F32.A Depression, unspecified; E66.01 Morbid (severe) obesity due to excess calories; E11.65 Type 2 diabetes mellitus with hyperglycemia; E11.40 Type 2 diabetes mellitus with diabetic neuropathy, unspecified; Z20.822 Contact with and (suspected) exposure to COVID-19; M54.9 Dorsalgia, unspecified; G89.29 Other chronic pain; N18.30 Chronic kidney disease, stage 3 unspecified; E11.22 Type 2 diabetes mellitus with diabetic chronic kidney disease; I12.9 Hypertensive chronic kidney disease with stage 1 through stage 4 chronic kidney disease, or unspecified chronic kidney disease; M19.011 Primary osteoarthritis, right shoulder; R82.71 Bacteriuria; G47.33 Obstructive sleep apnea (adult) (pediatric); M47.814 Spondylosis without myelopathy or radiculopathy, thoracic region; M1A.9XX0 Chronic gout, unspecified, without tophus (tophi); M79.672 Pain in left foot; Z88.1 Allergy status to other antibiotic agents; Z79.899 Other long term (current) drug therapy; Z88.0 Allergy status to penicillin; Z79.02 Long term (current) use of antithrombotics/antiplatelets; Z79.4 Long term (current) use of insulin; Z79.84 Long term (current) use of oral hypoglycemic drugs; Z86.73 Personal history of transient ischemic attack (TIA), and cerebral infarction without residual deficits; Z98.890 Other specified postprocedural states; Z86.16 Personal history of COVID-19; Z98.49 Cataract extraction status, unspecified eye; Z90.89 Acquired absence of other organs; Z90.49 Acquired absence of other specified parts of digestive tract; Z96.611 Presence of right artificial shoulder joint; Z96.659 Presence of unspecified artificial knee joint; Z98.51 Tubal ligation status; Z11.52 Encounter for screening for COVID-19; W19.XXXA Unspecified fall, initial encounter
CPT/HCPCS: 0240U; 0241U; 36415; 71045; 73721; 80048; 80053; 81001; 82947; 84484; 85025; 87040; 87086; 87088; 87186; 93005; 94640; 94667; 94668; 94760; 94761; 96374; 96375; 97110; 97162; 97530; 99284; 93010; 96372; 99285; A9270-GY; C1758; G0378; J0696; J1644; J1815; J1815-GY; J2270; J2405; J3490; J7620-GY

== ENCOUNTER 2023-12-23 09:29 | Emergency (ER) | payer OTHER, MEDICAID ==
[2023-12-23 11:07] LABS: APPEARANCE,URINE CLOUDY (Clear); BILIRUBIN,URINE NEGATIVE (Negative); COLOR,URINE YELLOW (Yellow); GLUCOSE,URINE NEGATIVE (Negative); KETONES,URINE NEGATIVE (Negative); LEUKOCYTE ESTERASE,URINE TRACE (Negative); NITRITE,URINE NEGATIVE (Negative); OCCULT BLOOD,URINE NEGATIVE (Negative); PH,URINE 7.5 (5.0-8.0); PROTEIN,URINE NEGATIVE (Negative); UROBILINOGEN,URINE 0.2 (0.2-1.0)
[2023-12-23] MEDS: Sodium Chloride 0.9% 500 ML IV ONE (11:16)
[2023-12-23 11:17] LABS: BASOPHILS ABSOLUTE AUTO 0.1 K/mm3 (0.0-0.2); BASOPHILS PERCENT AUTO 0.4 % (0.0-1.0); EOSINOPHILS ABSOLUTE AUTO 0.2 K/mm3 (0.0-0.4); EOSINOPHILS PERCENT AUTO 1.4 % (0.0-6.0); HEMATOCRIT 37.2 % (37.0-47.0); HEMOGLOBIN 11.8 gm/dl (12.0-16.0); IMMATURE GRAN ABSOLUTE AUTO 0.06 K/mm3 (0.00-0.05); IMMATURE GRAN PERCENT AUTO 0.5 % (0.0-0.4); LYMPHOCYTES ABSOLUTE AUTO 1.4 K/mm3 (1.0-4.8); LYMPHOCYTES PERCENT AUTO 10.7 % (24.0-44.0); MEAN CORPUSCULAR HEMOGLOBIN 27.9 pg (28.0-32.0); MEAN CORPUSCULAR HGB CONC 31.7 g/dl (32.0-36.0); MEAN CORPUSCULAR VOLUME 87.9 fl (83.0-99.0); MEAN PLATELET VOLUME 10.3 fl (9.4-12.3); MONOCYTES ABSOLUTE AUTO 0.8 K/mm3 (0.0-0.8); NEUTROPHILS ABSOLUTE AUTO 10.2 K/mm3 (1.8-7.7); PLATELET COUNT,PLT 187 K/mm3 (150-400); RED BLOOD CELL COUNT 4.23 M/mm3 (4.10-5.30); WHITE BLOOD CELL COUNT,WBC 12.62 K/mm3 (3.9-11.3)
[2023-12-23] MEDS: Sodium Chloride 0.9% 10 ML Syringe FLUSH PRN ×2 (11:17)
[2023-12-23 11:24] LABS: BACTERIA,URINE MANY /hpf (FEW); MUCUS,URINE RARE /hpf (FEW); RBC,URINE 0-5 /hpf (0-5); SQUAMOUS EPITHELIAL CELLS,UR 0-5 /hpf (0-5)
[2023-12-23 11:51] LABS: A/G RATIO 1.1 (1-2); ALBUMIN 3.3 g/dl (3.4-5.0); ANION GAP 13.4 (5-15); BILIRUBIN TOTAL 0.5 mg/dL (0.2-1.0); CALCIUM 8.7 mg/dL (8.5-10.1); EST CRCL DRUG DOSING (CG) 45.99 mL/min; MAGNESIUM 1.6 mg/dL (1.8-2.4); POTASSIUM,K 4.4 mEq/L (3.5-5.1); PROTEIN TOTAL,TP 6.2 g/dl (6.4-8.2)
[2023-12-23 11:53] LABS: CORONAVIRUS COVID-19 NAA NEGATIVE (NEGATIVE); INFLUENZA A NAA NEGATIVE (NEGATIVE); RESPIRATORY SYNCYTIAL VIR NAA NEGATIVE (NEGATIVE)
[2023-12-23] MEDS: Iopamidol 612 MG/ML 100 ML Bottle IVPUSH ONE (12:21)
[2023-12-23] MEDS: Magnesium Oxide 400 MG Tab PO ONE (16:30)
[2023-12-23] MEDS: Levofloxacin 750 MG Tab PO ONE (16:30)
[2023-12-23 17:25] VITALS: BP 118/60; PULSE 76
== END 2023-12-23 16:30 | disposition home or self-care (01) ==
LOC: JD.ED 09:29
DX: J18.9 Pneumonia, unspecified organism (principal); R30.0 Dysuria; I10 Essential (primary) hypertension; E78.00 Pure hypercholesterolemia, unspecified; J45.909 Unspecified asthma, uncomplicated; E11.9 Type 2 diabetes mellitus without complications; E66.9 Obesity, unspecified; Z86.16 Personal history of COVID-19; Z90.49 Acquired absence of other specified parts of digestive tract; Z79.899 Other long term (current) drug therapy; Z79.4 Long term (current) use of insulin; Z88.8 Allergy status to other drugs, medicaments and biological substances; Z68.41 Body mass index [BMI] 40.0-44.9, adult
CPT/HCPCS: 0241U; 36415; 71045; 74177; 80053; 81001; 83690; 83735; 85025; 87086; 93005; 99285; A9270; C1758; J3490; J7030; Q9967; 87088; 87186; 93010; 99284

== ENCOUNTER 2024-06-04 20:26 | Emergency (ER) | payer MEDICARE | END 2024-06-04 23:00 | disposition left against medical advice (07) | LOC: JD.ED 20:26 | DX: Z53.21 Procedure and treatment not carried out due to patient leaving prior to being seen by health care provider (principal) ==